=== PATIENT | female | born 1960 | race Caucasian/White ===

== ENCOUNTER 2020-11-10 15:49 | Outpatient (REF) | payer MEDICAID, SELFPAY ==
--- NOTE | ~2020-11-10 | MM_ITS ---
EXAMINATION: MM SCREENING DIGITAL BREAST TOMOSYNTHESIS, BILATERAL CLINICAL INFORMATION: Screening. Asymptomatic. The lifetime risk of breast cancer based on the Tyrer-Cuzick Model is 3.5%. COMPARISON: Mammography: November 05, 2019 and studies dating back to March 11, 2013 TECHNIQUE: Digital breast tomosynthesis is performed in both the craniocaudal and mediolateral oblique views along with computer-aided detection (CAD). Synthesized 2D images are generated from the tomosynthesis. FINDINGS: The breasts are heterogeneously dense, which may obscure small masses (ACR BI-RADS breast composition Category c). There are no significant masses, abnormal calcifications, or other abnormalities. MM/MM tomosynthesis screening BI IMPRESSION: There are no significant changes from prior study. ASSESSMENT: BI-RADS 1: Negative RECOMMENDATION: Routine annual mammography screening. This patient's information was entered into a reminder system with a target due date for their next mammogram.
== END 2020-11-10 15:50 | disposition home or self-care (01) ==
LOC: HO.MAMMO 15:49
PROVIDERS: PCP Internal Medicine; Visit Provider Internal Medicine
DX: Z12.31 Encounter for screening mammogram for malignant neoplasm of breast (principal)
CPT/HCPCS: 77063; 77067

== ENCOUNTER 2021-01-18 16:00 | Outpatient (REF) | payer MEDICAID, SELFPAY ==
--- NOTE | ~2021-01-18 | XR_ITS ---
EXAMINATION: XR KNEE, LEFT CLINICAL INFORMATION: Left knee pain. COMPARISON: 05/22/2018 TECHNIQUE: 3 views of the left knee. FINDINGS: There is osteopenia visualized bones. Patient status post left total knee arthroplasty. No significant change in appearance is identified when compared to study of 05/22/2018. No acute fractures identified. Small knee effusion appreciated. No dislocation. No evidence of hardware loosening. XR/XR knee LT 3V IMPRESSION: Stable appearance of left knee status post left knee total arthroplasty. Small left knee effusion. Osteopenia.
== END 2021-01-18 16:01 | disposition home or self-care (01) ==
LOC: HO.XRAY 16:00
PROVIDERS: Visit Provider Student in an Organized Health Care Education/Training Program
DX: M25.562 Pain in left knee (principal); L94.0 Localized scleroderma [morphea]
CPT/HCPCS: 73562; 99212

== ENCOUNTER 2021-09-21 12:53 | Emergency (ER) | payer MEDICAID, SELFPAY ==
--- NOTE | ~2021-09-21 | CT_ITS ---
EXAMINATION: CT ABDOMEN AND PELVIS WITHOUT CONTRAST CLINICAL INFORMATION: Left abdominal pain COMPARISON: None TECHNIQUE: Multidetector volumetric imaging was performed from the superior aspect of the liver through the pubic symphysis. Sagittal and coronal reformatted images were obtained on the technologist's workstation. This CT examination was performed using dose optimization techniques as appropriate, variously including the following: *Automated exposure control *Adjustment of mA and/or kV according to patient size (this includes techniques or standardized protocols for targeted exams where dose is matched to indication/reason for exam; i.e. extremities or head) *Use of iterative reconstruction technique DLP: 516 mGy-cm FINDINGS: LUNG BASES: The visualized lung bases are unremarkable. LIVER, GALLBLADDER, AND BILIARY TREE: The liver is normal in size, shape, and attenuation. There is an 8 mm cyst within lateral segment. No suspicious hepatic lesion or biliary ductal dilatation is present. Gallbladder unremarkable. PANCREAS: Unremarkable. SPLEEN: Unremarkable. ADRENAL GLANDS: Unremarkable. KIDNEYS AND URETERS: The kidneys are normal in size, shape, and attenuation. There is a 1.4 cm structure emanating from the lower pole of the right kidney, and a smaller exophytic structure emanating from the upper pole of the right kidney. Simple cyst emanates from the upper pole of left kidney. No hydronephrosis, hydroureter, or calculi seen. No perinephric stranding. BLADDER: Unremarkable. GASTROINTESTINAL TRACT: The small and large bowel are unremarkable. The appendix is unremarkable. ABDOMINAL WALL: No significant hernia is appreciated. LYMPH NODES: Normal. VASCULAR: Unremarkable. PELVIC VISCERA: Hysterectomy and bilateral oophorectomy. OSSEOUS STRUCTURES: No acute or suspicious osseous abnormalities. CT/CT abdomen pelvis wo con IMPRESSION: * No potential etiology for the patient's symptomatology is identified. * Indeterminate 1.4 cm structure emanating from the lower pole right kidney, and smaller structure emanating from the upper pole right kidney. There is a simple cyst in the left kidney. Recommend nonemergent renal ultrasound for further evaluation.
[2021-09-21 13:09] VITALS: BP 162/89; PULSE 83; RESP 18; O2SAT 99; BMI 26.7
[2021-09-22 01:17] LABS: MANUAL DIFF FLAG NO
[2021-09-22 01:18] LABS: Basophils Percent Auto 0.5 % (0-2); Eosinophils Absolute Auto 0.4 X10*3/uL (0.0-0.4); Eosinophils Percent Auto 6.7 % (0-4); Hemoglobin 14.7 g/dl (12.0-16.0); Imm Gran Abs Auto 0.02 X10*3/uL (0.00-0.03); Imm Gran Pct Auto 0.3 % (0.0-0.4); Lymphocytes Absolute Auto 1.6 X10*3/uL (1.2-4.9); Lymphocytes Percent Auto 27.4 % (20-40); Mean Corpuscular Hemoglobin 29.8 pg (27.0-33.0); Mean Corpuscular Volume 93.1 fL (80.0-98.0); Mean Platelet Volume 10.3 fL (9.4-12.3); Monocytes Absolute Auto 0.5 X10*3/uL (0.1-1.2); Monocytes Percent Auto 8.1 % (2-11); Neutrophils Absolute Auto 3.4 x10*3/uL (2.0-8.3); Platelet Count 252 X10*3/uL (160-400); Red Blood Count 4.94 X10*6/uL (4.20-5.50); Red Cell Distribution Width 12.7 % (11.0-16.0); White Blood Count 5.9 X10*3/uL (4.8-10.8)
[2021-09-22 01:38] LABS: Alanine Aminotransferase 25 U/L (0-31); Albumin Level 4.8 g/dL (3.5-5.0); Alkaline Phosphatase 102 U/L (39-117); Anion Gap 12 (12-20); Aspartate Amino Transferase 20 U/L (5-31); Bilirubin Total 0.5 mg/dL (0.0-1.0); Blood Urea Nitrogen 13 mg/dL (9-16); Calcium 10.2 mg/dL (8.4-10.2); Carbon Dioxide 29 mmol/L (22-29); Chloride 106 mmol/L (96-108); Creatinine Clr Calc Pharmacy 81.5; Estimated Glomerular Filt Rate > 60; Glucose Random 127 mg/dL (60-115); Lipase 18 U/L (8-78); Potassium 4.1 mmol/L (3.3-5.1); Sodium 143 mmol/L (135-145); Total Protein 7.7 g/dL (6.5-8.0)
--- NOTE | 2021-09-22 06:00 | ED.ABDPAIN ---
HPI - Abdominal Pain General Chief Complaint: Abdominal Pain Stated Complaint: pain in L side hurts to breathe Time Seen by Provider: 09/22/21 02:46 Source: patient and maintenance of way clerk Mode of arrival: other (Cane) History of Present Illness HPI narrative: 60-year-old female presents with left upper quadrant/flank since mid May in denies any traumatic event at that time. This has not been associated with any fever, chills, cough, weight loss in patient has discussed with her primary care physician in reports her last mammogram was October of 2020. Related Data Home Medications Medication Instructions Recorded Confirmed amlodipine 5 mg tablet 5 mg PO DAILY 01/18/21 aspirin 81 mg tablet,delayed 81 mg PO DAILY 01/18/21 release enalapril maleate 20 mg tablet 20 mg PO DAILY 01/18/21 simvastatin 20 mg tablet 20 mg PO DAILY 01/18/21 venlafaxine 150 mg 150 mg PO DAILY 01/18/21 capsule,extended release 24 hr Allergies Allergy/AdvReac Type Severity Reaction Status Date / Time hydroxychloroquine Allergy Unknown AFFECTED Verified 01/18/21 16:07 [From PLAQUENIL] VISION Review of Systems Review of Systems Pertinent positives and negatives as stated in HPI 10 point review of systems is otherwise Physical Exam Vital Signs: Vital Signs: Last Vital Signs Pulse 83 09/21/21 13:09 Resp 18 09/21/21 13:09 BP 162/89 H 09/21/21 13:09 Pulse Ox 99 09/21/21 13:09 BMI result Body Mass Index 26.7 VITAL SIGNS: Reviewed. GENERAL: Well developed, well nourished, in no acute distress. HEAD: Normocephalic/atraumatic EYES: PERRLA, EOMI OROPHARYNX: no oral lesions noted, posterior pharynx clear LUNGS: Normal breath sounds. No adventitious sounds or accessory muscle use. SpO2<99>, no chest wall tenderness/crepitus/deformity noted CARDIOVASCULAR: Regular rate and rhythm without noted murmurs, no JVD or lower extremity edema. ABDOMEN: Soft, non-tender, non-distended with bowel sounds. NEUROLOGIC: Alert and oriented x 4. Course Course Course Narrative: 60-year-old female with history and clinical presentation suggestive of musculoskeletal pain and less likely thought to be pneumonia, bony fracture or intra-abdominal pathology. On review of all investigations there are no acute findings and this was communicated with patient via registered mail clerk. Patient does have good follow-up and will be obtaining an outpatient chest x-ray. MDM - Abdominal Pain Lab Data Result diagrams: 09/22/21 00:42 09/22/21 00:42 Labs: Lab Results 09/22/21 09/22/21 Range/Units 00:42 00:42 WBC 5.9 (4.8-10.8) X10*3/uL RBC 4.94 (4.20-5.50) X10*6/uL Hgb 14.7 (12.0-16.0) g/dl Hct 46.0 (37.0-47.0) % MCV 93.1 (80.0-98.0) fL MCH 29.8 (27.0-33.0) pg MCHC 32.0 (31.0-35.0) g/dl RDW 12.7 (11.0-16.0) % Plt Count 252 (160-400) X10*3/uL MPV 10.3 (9.4-12.3) fL Immature Gran % (Auto) 0.3 (0.0-0.4) % Neut % (Auto) 57.0 (45-73) % Lymph % (Auto) 27.4 (20-40) % [place] % (Auto) 8.1 (2-11) % Eos % (Auto) 6.7 H (0-4) % Baso % (Auto) 0.5 (0-2) % Lymph # (Auto) 1.6 (1.2-4.9) X10*3/uL [place] # (Auto) 0.5 (0.1-1.2) X10*3/uL Eos # (Auto) 0.4 (0.0-0.4) X10*3/uL Baso # (Auto) 0.0 (0.0-0.2) X10*3/uL Abs Immat Gran (auto) 0.02 (0.00-0.03) X10*3/uL Absolute Neuts (auto) 3.4 (2.0-8.3) x10*3/uL Absolute Nucleated RBC 0.000 (0.0-0.012) X10*3/uL Nucleated RBC % (auto) 0.0 (0.0-0.2) /100WBC Sodium 143 (135-145) mmol/L Potassium 4.1 (3.3-5.1) mmol/L Chloride 106 (96-108) mmol/L Carbon Dioxide 29 (22-29) mmol/L Anion Gap 12 (12-20) BUN 13 (9-16) mg/dL Creatinine 0.69 (0.5-1.4) mg/dL Estim Creat Clear Calc 81.5 Estimated GFR > 60 Random Glucose 127 H (60-115) mg/dL Calcium 10.2 (8.4-10.2) mg/dL Total Bilirubin 0.5 (0.0-1.0) mg/dL AST 20 (5-31) U/L ALT 25 (0-31) U/L Alkaline Phosphatase 102 (39-117) U/L Total Protein 7.7 (6.5-8.0) g/dL Albumin 4.8 (3.5-5.0) g/dL Lipase 18 (8-78) U/L Discharge Plan Discharge Clinical Impression: Musculoskeletal pain, Chest wall pain Patient Disposition: Home, Self-Care Instructions: Musculoskeletal Pain (ED), Chest Wall Pain (ED) Additional Instructions: 1. Recomiende el uso de Tylenol / ibuprofeno de venta miriam seg?n sea necesario para controlar el dolor. 2. Se recomienda el uso de parches de lidoca?na, estos est?n disponibles sin receta y deben aplicarse en el ?kamla de m?xima sensibilidad min se indica en el empaque exterior. 3. Samantha un seguimiento con smith proveedor de atenci?n primaria para patti reevaluaci?n, espec?ficamente para completar la radiograf?a de t?rax. Hubo hallazgos en smith tomograf?a computarizada con recomendaciones no emergentes para un seguimiento adicional con patti ecograf?a: * No se indica ninguna etiolog?a potencial de la sintomatolog?a del paciente. identificado. * Estructura indeterminada de 1,4 cm que emana del polo inferior derecho ri??n y estructura m?s vijaya?a que emana del polo superior derecho ri??n. Hay un quiste simple en el ri??n aidan. Recomendar ecograf?a renal que no es de emergencia para patti evaluaci?n adicional. Prescriptions: No Action enalapril maleate 20 mg tablet 20 mg PO DAILY RF: 0 amlodipine 5 mg tablet 5 mg PO DAILY RF: 0 simvastatin 20 mg tablet 20 mg PO DAILY RF: 0 aspirin 81 mg tablet,delayed release (DR/EC) 81 mg PO DAILY RF: 0 venlafaxine 150 mg capsule,extended release 24hr 150 mg PO DAILY RF: 0 Referrals: [facility] [Primary Care Provider] - 2 days Print Language: Serbian [facility], [facility] Past Medical History Source: nursing notes reviewed Medical History Depression GERD (gastroesophageal reflux disease) HTN (hypertension) Hyperlipidemia [place] Social History Social History Household Members: None Housing: Apartment Alcohol intake: current Advance Directives: No Advance Directives Information Provided: Yes
== END 2021-09-22 06:15 | disposition home or self-care (01) ==
PROVIDERS: Emergency Provider Student in an Organized Health Care Education/Training Program
DX: R07.89 Other chest pain (principal); M79.18 Myalgia, other site; R10.12 Left upper quadrant pain; I10 Essential (primary) hypertension; E78.5 Hyperlipidemia, unspecified
CPT/HCPCS: 36415; 74176; 80053; 83690; 85025; 99282; 99284

== ENCOUNTER 2021-10-06 11:24 | Outpatient (REF) | payer MEDICAID, SELFPAY ==
[2021-10-06 11:47] LABS: Binax Internal Control QC Valid; Binax Now Covid-19 Ag Negative (Negative)
== END 2021-10-06 11:25 | disposition home or self-care (01) ==
LOC: HO.LAB 11:24
PROVIDERS: PCP General Practice; Visit Provider Internal Medicine
DX: Z20.822 Contact with and (suspected) exposure to COVID-19 (principal)
CPT/HCPCS: C9803

== ENCOUNTER 2022-01-25 10:52 | Outpatient (REF) | payer MEDICAID, SELFPAY ==
--- NOTE | ~2022-01-25 | MM_ITS ---
EXAMINATION: MM SCREENING DIGITAL BREAST TOMOSYNTHESIS, BILATERAL CLINICAL INFORMATION: Screening. Asymptomatic. The lifetime risk of breast cancer based on the Tyrer-Cuzick Model is 3.2%. COMPARISON: Mammography: November 10, 2020 and studies dating back to November 16, 2013 TECHNIQUE: Digital breast tomosynthesis is performed in both the craniocaudal and mediolateral oblique views along with computer-aided detection (CAD). Synthesized 2D images are generated from the tomosynthesis. FINDINGS: The breasts are heterogeneously dense, which may obscure small masses (ACR BI-RADS breast composition Category c). There are no significant masses, abnormal calcifications, or other abnormalities. MM/MM tomosynthesis screening BI IMPRESSION: There are no significant changes from prior study. ASSESSMENT: BI-RADS 1: Negative RECOMMENDATION: Routine annual mammography screening. This patient's information was entered into a reminder system with a target due date for their next mammogram.
== END 2022-01-25 10:53 | disposition home or self-care (01) ==
LOC: HO.MAMMO 10:52
PROVIDERS: PCP General Practice; Visit Provider General Practice
DX: Z12.31 Encounter for screening mammogram for malignant neoplasm of breast (principal)
CPT/HCPCS: 77063; 77067

== ENCOUNTER 2022-08-14 12:27 | Outpatient (REF) | payer MEDICAID, SELFPAY ==
--- NOTE | ~2022-08-14 | XR_ITS ---
EXAMINATION: XR KNEE, LEFT CLINICAL INFORMATION: Left knee pain. COMPARISON: Left knee radiographs dated 01/18/2021. TECHNIQUE: Three views of the left knee. FINDINGS: The patient is status post left knee arthroplasty showing good anatomic alignment and no evidence for hardware malfunction. Moderate-sized osseous protuberance off of the lateral margin of the talus again seen without significant change. Associated remodeling with the lateral condylar prosthesis is noted. No acute fracture or dislocation. There is no joint effusion. The soft tissues are unremarkable. XR/XR knee LT 3V IMPRESSION: No acute hardware or osseous abnormality. No significant change.
--- NOTE | ~2022-08-14 | XR_ITS ---
EXAMINATION: XR HIP, RIGHT CLINICAL INFORMATION: Right hip pain. COMPARISON: None TECHNIQUE: Two views of the right hip. FINDINGS: Bones and soft tissues are normal. No fracture. Alignment is anatomic. Hip joint space is maintained. XR/XR hip RT min 2V IMPRESSION: Unremarkable right hip.
--- NOTE | ~2022-08-14 | XR_ITS ---
EXAMINATION: XR HIP, LEFT CLINICAL INFORMATION: Hip pain. COMPARISON: None TECHNIQUE: Two views of the left hip. FINDINGS: Bones and soft tissues are normal. No fracture. Alignment is anatomic. Hip joint space is maintained. XR/XR hip LT min 2V IMPRESSION: Unremarkable left hip.
[2022-08-14 12:36] LABS: MANUAL DIFF FLAG NO
[2022-08-14 13:06] LABS: Basophils Percent Auto 0.6 % (0-2); Eosinophils Absolute Auto 0.2 X10*3/uL (0.0-0.4); Eosinophils Percent Auto 2.9 % (0-4); Hemoglobin 14.7 g/dl (12.0-16.0); Imm Gran Abs Auto 0.02 X10*3/uL (0.00-0.03); Imm Gran Pct Auto 0.3 % (0.0-0.4); Lymphocytes Absolute Auto 1.6 X10*3/uL (1.2-4.9); Lymphocytes Percent Auto 23.8 % (20-40); Mean Corpuscular HGB Conc 32.7 g/dl (31.0-35.0); Mean Corpuscular Hemoglobin 28.8 pg (27.0-33.0); Mean Corpuscular Volume 88.1 fL (80.0-98.0); Mean Platelet Volume 10.5 fL (9.4-12.3); Monocytes Absolute Auto 0.4 X10*3/uL (0.1-1.2); Monocytes Percent Auto 6.3 % (2-11); Neutrophils Absolute Auto 4.5 x10*3/uL (2.0-8.3); Neutrophils Percent Auto 66.1 % (45-73); Platelet Count 306 X10*3/uL (160-400); Red Blood Count 5.11 X10*6/uL (4.20-5.50); Red Cell Distribution Width 12.8 % (11.0-16.0); White Blood Count 6.9 X10*3/uL (4.8-10.8)
[2022-08-14 13:33] LABS: Alanine Aminotransferase 22 U/L (0-31); Blood Urea Nitrogen 14 mg/dL (9-16); C Reactive Protein 0.88 mg/dL (< or = 0.50); Estimated Glomerular Filt Rate > 60
[2022-08-14 13:42] LABS: Erythrocyte Sedimentation Rate 12 MM/HR (0-20)
[2022-08-14 14:04] LABS: Aspartate Amino Transferase 16 U/L (5-31)
== END 2022-08-14 12:28 | disposition home or self-care (01) ==
LOC: HO.XRAY 12:27
PROVIDERS: PCP General Practice; Visit Provider Nurse Practitioner Family
DX: M25.551 Pain in right hip (principal); M25.552 Pain in left hip; M25.562 Pain in left knee; M25.50 Pain in unspecified joint; L94.0 Localized scleroderma [morphea]; Z79.899 Other long term (current) drug therapy; Z96.652 Presence of left artificial knee joint
CPT/HCPCS: 36415; 73502; 73562; 82565; 84450; 84460; 84520; 85025; 85652; 86140; 99212

== ENCOUNTER 2022-08-23 08:59 | Outpatient (REF) | payer MEDICAID, SELFPAY | END 2022-08-23 09:00 | disposition home or self-care (01) | LOC: HO.HOSX 08:59 | PROVIDERS: Visit Provider Orthopaedic Surgery | DX: Z13.89 Encounter for screening for other disorder (principal) ==

== ENCOUNTER 2022-08-29 12:28 | Outpatient (REF) | payer MEDICAID, SELFPAY ==
--- NOTE | ~2022-08-29 | XR_ITS ---
EXAMINATION: AP STANDING VIEWS OF BOTH KNEES WELL LATERAL AND SUNRISE VIEWS OF THE LEFT KNEE CLINICAL INFORMATION: Pain. COMPARISON: 01/18/2021 and 05/22/2018. TECHNIQUE: AP standing view of both knees and lateral and sunrise views of the left knee. FINDINGS: AP standing views of the knees demonstrate moderate narrowing of the medial joint space compartment of the right knee. Patient is status post left total knee arthroplasty without evidence of hardware failure and similar in appearance to previous studies. There does appear to be some valgus angulation on this single image and it is difficult to tell whether this may be positional in nature. No significant knee effusion is appreciated. There is prominent spurring about the patella superiorly, inferiorly, and laterally. XR/XR knee standing BI IMPRESSION: Right knee medial joint space compartment narrowing. Status post left total knee arthroplasty without change in appearance of the prosthetic components. Degenerative change as described.
--- NOTE | ~2022-08-29 | XR_ITS ---
EXAMINATION: AP STANDING VIEWS OF BOTH KNEES WELL LATERAL AND SUNRISE VIEWS OF THE LEFT KNEE CLINICAL INFORMATION: Pain. COMPARISON: 01/18/2021 and 05/22/2018. TECHNIQUE: AP standing view of both knees and lateral and sunrise views of the left knee. FINDINGS: AP standing views of the knees demonstrate moderate narrowing of the medial joint space compartment of the right knee. Patient is status post left total knee arthroplasty without evidence of hardware failure and similar in appearance to previous studies. There does appear to be some valgus angulation on this single image and it is difficult to tell whether this may be positional in nature. No significant knee effusion is appreciated. There is prominent spurring about the patella superiorly, inferiorly, and laterally. XR/XR knee LT 2V IMPRESSION: Right knee medial joint space compartment narrowing. Status post left total knee arthroplasty without change in appearance of the prosthetic components. Degenerative change as described.
== END 2022-08-29 12:29 | disposition home or self-care (01) ==
LOC: HO.HOSX 12:28
PROVIDERS: Visit Provider Orthopaedic Surgery
DX: M25.562 Pain in left knee (principal)
CPT/HCPCS: 73560; 73565; 99202

== ENCOUNTER → 2022-08-30 10:17 | Outpatient (BNVA) | payer MEDICAID, SELFPAY | PROVIDERS: PCP General Practice; Visit Provider Orthopaedic Surgery | DX: M25.562 Pain in left knee (principal); M25.662 Stiffness of left knee, not elsewhere classified; Z96.652 Presence of left artificial knee joint | CPT/HCPCS: 99202 ==

== ENCOUNTER 2023-03-08 11:04 | Outpatient (REF) | payer MEDICAID, SELFPAY ==
--- NOTE | ~2023-03-08 | MM_ITS ---
EXAMINATION: MM SCREENING DIGITAL BREAST TOMOSYNTHESIS, BILATERAL CLINICAL INFORMATION: Screening. Asymptomatic. The lifetime risk of breast cancer based on the Tyrer-Cuzick Model is 3%. COMPARISON: Multiple prior mammography exams dating back to 07/25/2016. TECHNIQUE: Digital breast tomosynthesis is performed in both the craniocaudal and mediolateral oblique views along with computer-aided detection (CAD). Synthesized 2D images are generated from the tomosynthesis. FINDINGS: The breasts are heterogeneously dense, which may obscure small masses (ACR BI-RADS breast composition Category c). There are no significant masses, abnormal calcifications, or other abnormalities. Parenchymal pattern is similar to prior studies and there is no developing density or interval architectural abnormality. There is a biopsy clip marker again noted posterior 3:00 right breast. Mild bilateral nipple retraction is chronic finding. No skin thickening. The axilla are unremarkable. No significant changes. MM/MM tomosynthesis screening BI IMPRESSION: No mammographic evidence of malignancy. ASSESSMENT: BI-RADS 2: Benign RECOMMENDATION: Routine annual mammography screening. This patient's information was entered into a reminder system with a target due date for their next mammogram.
== END 2023-03-08 11:05 | disposition home or self-care (01) ==
LOC: HO.MAMMO 11:04
PROVIDERS: PCP General Practice; Visit Provider General Practice
DX: Z12.31 Encounter for screening mammogram for malignant neoplasm of breast (principal)
CPT/HCPCS: 77063; 77067

== ENCOUNTER 2023-06-13 14:00 | Outpatient (RCR) | payer MEDICAID, SELFPAY ==
[2023-06-11 10:04] VITALS: BP 161/76; PULSE 76
== END 2023-07-17 09:18 | disposition home or self-care (01) ==
LOC: HO.PT 14:00
PROVIDERS: PCP General Practice; Visit Provider General Practice
DX: R42 Dizziness and giddiness (principal)
CPT/HCPCS: 95992; 97162

== ENCOUNTER 2023-09-30 13:16 | Outpatient (AMB) | payer MEDICAID, SELFPAY ==
--- NOTE | 2023-09-30 13:21 | A.OFFVIS_ITS ---
Intake Vital Signs 09/30/23 13:22 Height 5 ft 3 in Weight 160 lb 14.999 oz BMI 28.5 BP 110/70 Blood Pressure Location Lt brachial Position Sitting Pulse 69 Intake Visit Reasons: NPV/Palpitations/HHC/S. [place] Intake Note: NPV? Plapitations/HHC/ pt its still feeling the palpitations, sometime having some tightness of the chest that will have her some shortness of breath. Aircraft Detail Draftsperson Required: Yes Aircraft Detail Draftsperson Name: [id number] Accompanied by: Daughter Allergies hydroxychloroquine [From PLAQUENIL] Allergy (Unknown, Verified 08/30/22 10:30) AFFECTED VISION Medication List - Last Reconciled 09/30/23 by Jose Aguilar MD acetaminophen 500 - 1,000 mg PO Q6H PRN amlodipine 5 mg PO DAILY aspirin 81 mg PO DAILY calcium carbonate-vitamin D3 600 mg-10 mcg (400 unit) 1 tab PO BID enalapril maleate 20 mg PO DAILY naproxen 500 mg PO BID oxybutynin chloride ER 10 mg PO QAM simvastatin 20 mg PO DAILY venlafaxine ER 150 mg PO DAILY HPI HPI Comments History of Present Illness Details 62-year-old female who is referred to us for palpitations and chest discomfort. She has been experiencing chest pain for few months. She describes a pressure-like feeling over her chest along with shortness of breath. These episodes are somewhat random and can happen at rest and with activity too. She also gets palpitations mostly at nighttime and these are quite frequent and happen almost every night. She is a nonsmoker. She has background of hyperlipidemia. ON LICENSE OF [facility] Medical History (Updated 09/30/23 @ 13:55 by Jose Aguilar MD) Depression Hyperlipidemia HTN (hypertension) GERD (gastroesophageal reflux disease) [place] Surgical History History of partial hysterectomy Hx of section History of knee replacement procedure of left knee (~1997) Family History Mother Hypertension Father No problems noted. Social History Household Members: None Housing: Apartment Alcohol intake: current Alcohol intake frequency: holidays/special occasions only Patient Tobacco Use Status: Never used Tobacco Review of Systems Const Reports chills, Reports fatigue, Reports fever(s), Reports frequent falls, Reports weakness, Reports weight gain and Reports weight loss ENT Reports dizziness Card Reports chest pain, Reports leg edema, Reports lightheadedness, Reports palpitations, Reports dyspnea, Reports dyspnea on exertion and Reports orthopnea Resp Reports cough, Reports dyspnea and Reports dyspnea on exertion GI Reports bloating and Reports change in bowel habits Musc Reports muscle weakness, Reports numbness and Reports tingling Neuro Reports dizziness, Reports frequent falls, Reports numbness, Reports tingling and Reports weakness Endo Reports fatigue and Reports palpitations Physical Exam Vital Signs: Last Vital Signs Pulse 69 09/30/23 13:22 BP 110/70 09/30/23 13:22 BMI result Body Mass Index 28.5 GENERAL APPEARANCE: in no acute distress, pleasant. NECK: no carotid bruit, no jugular venous distention. SKIN: no suspicious lesions, warm and dry. HEART: no murmurs, regular rate and rhythm. LUNGS: clear to auscultation bilaterally. ABDOMEN: soft, nontender. EXTREMITIES: no edema. PERIPHERAL PULSES: equal. NEUROLOGIC: No gross deficits, AAO X 3 Office Procedures EKG Details: Sinus rhythm 69 beats per minute, normal ECG, QTC 456 milliseconds. [id number], Complete Assessment & Plan Assessment & Plan (1) Chest pain: Code(s): R07.9 - Chest pain, unspecified (2) Palpitations: Code(s): R00.2 - Palpitations Plan Pleasant 62 year female here for chest pain and palpitations. She has been experiencing chest tightness and shortness of breath. We will arrange a Lexiscan for her. Due to previous knee surgeries she walks with the cane and is unable to exercise on a treadmill. She has palpitations every night, we will arrange a 7 day Holter monitor. Thank you for allowing me to participate in the care of your patient. Please feel free to contact me if you have any questions. Orders: Orders CA lexiscan stress w papa Today R07.9 - Chest pain, unspecified ECG 7 day holter monitor Today R00.2 - Palpitations Coding Level of Care Code New Pt Level 4 (06695) Diagnoses Chest pain R07.9 Palpitations R00.2 CPT Codes EKG - CPT: 30029-[id number], Complete ([id number])
[2023-09-30 13:22] VITALS: BP 110/70; PULSE 69; BMI 28.5
== END 2023-09-30 13:59 | disposition home or self-care (01) ==
PROVIDERS: PCP General Practice; Referring Provider General Practice; Visit Provider Internal Medicine Cardiovascular Disease
DX: R07.9 Chest pain, unspecified (principal); R00.2 Palpitations
CPT/HCPCS: 93010; 99204

== ENCOUNTER → 2023-09-30 13:16 | Outpatient (BNVA) | payer MEDICAID, SELFPAY | PROVIDERS: PCP General Practice; Visit Provider Internal Medicine Cardiovascular Disease | DX: R07.9 Chest pain, unspecified (principal); R00.2 Palpitations | CPT/HCPCS: 93005; 99202 ==

== ENCOUNTER → 2023-11-11 09:01 | Outpatient (REF) | payer MEDICAID, SELFPAY ==
--- NOTE | ~2023-11-11 | NM_ITS ---
Myocardial perfusion study Indication: Chest pain Technique: The patient was brought in for a Lexiscan perfusion study on 11/11/2023. Patient performed low-level exercise and was injected 0.4 mg of Lexiscan intravenously. Within a minute of injection, 25 mCi of sestamibi was given intravenously. Images were obtained using the SPECT gamma camera interlaced with the gating device. Images were obtained in supine position. Resting perfusion study was performed on 11/12/2023. Patient was administered 25 mCi of sestamibi intravenously at rest. Images were then obtained in supine position. Images obtained with and without CT attenuation. Total DLP 88 mGy-cm Images were processed with the software and compared side to side in short axis, horizontal long axis and vertical long axis views. Findings: Perfusion study is suboptimal due to intense subdiaphragmatic uptake in the liver interfering with inferior wall uptake as well as intense para-cardiac uptake in the gastric area of possibly hiatal hernia interfering with lateral wall uptake. The stress perfusion study showed non attenuated images show mildly reduced uptake in the distal anterior wall. The inferolateral and basal inferior wall are difficult to assess. Attenuation corrected images show diffusely reduced uptake in the entire myocardium with severely reduced uptake in the apex.. The gated study shows normal LV systolic function with calculated LVEF of 55%. LV cavity is mildly dilated size. The gated study shows normal systolic wall thickening and contraction of segments. Resting study shows non attenuated as well as show improved uptake in the apical wall of the LV myocardium. Attenuation corrected images show improved uptake in all segments of LV myocardium.. Gating at rest reveals normal systolic wall motion with ejection fraction at 57%. The findings are consistent with equivocal for reversibility apical wall non attenuated images show . However there is diffusely improved uptake in the entire myocardium on attenuated corrected images. This study is poor diagnostic quality and therefore cannot entirely rule out myocardial ischemia and the study.. NM/NM papa perf SPECT rest & str Impression: 1. Myocardial perfusion imaging study nondiagnostic due to extracardiac uptake interfering with myocardial uptake. 2. Gated LVEF is 55% 3. Transient ischemic dilatation not present EKG is nondiagnostic for ischemia. There is alternative imaging for coronary artery disease evaluation
--- NOTE | 2023-11-11 09:04 | HM_ITS ---
Conclusion: 1. Patient was monitored for total period of 1 day and 23 hours 2. Baseline was normal sinus with average heart of 76 beats per minute next 3. No significant arrhythmias or pauses noted 4. Patient marked the counter 2 times without associated symptoms correlating with sinus rhythm MTDD
--- NOTE | 2023-11-11 09:04 | CA_ITS ---
Acquisition Time: 2023-11-11 09:31:51 Total Exercise Time: 00:02:00 Test Indications: CP, PALPITATIONS Medications: SEE H Protocol: LEXISCAN Max HR: 127 BPM 79% of Pred: 159 BPM Max BP: 128/080 mmHG Max Work Load: 1.0 METS Pharmacological stress test with Lexiscan injection while sitting and kicking her legs, with 6/7 chest tightness, without arrhythmias, with normotensive repsonse to injection, with nondiagnoisitic EKGs. Aminophylline 75mg IVP given to reverse Lexiscan. Chest tightness resolved in recovery. Nuclear images pending. Test reviewed with Dr. Zhou. Referred By: Jose Aguilar Overread By: Dawna Whitley
== END ==
LOC: HO.CARD 09:01
PROVIDERS: PCP General Practice; Visit Provider Internal Medicine Cardiovascular Disease
DX: R07.9 Chest pain, unspecified (principal); R00.2 Palpitations
CPT/HCPCS: 78452; 93017; 93225; A9500; J0280; J2785

== ENCOUNTER → 2023-11-11 09:04 | Outpatient (BNV) | payer MEDICAID, SELFPAY | PROVIDERS: PCP General Practice; Visit Provider Nurse Practitioner | DX: R00.2 Palpitations (principal) | CPT/HCPCS: 78452; 93016; 93018; 93227 ==

== ENCOUNTER 2024-01-13 10:48 | Outpatient (AMB) | payer MEDICAID, SELFPAY ==
[2024-01-13 10:55] VITALS: BP 120/62; PULSE 78; BMI 28.0
--- NOTE | 2024-01-13 10:55 | A.OFFVIS_ITS ---
Vital Signs 01/13/24 10:55 Height 5 ft 3 in Weight 158 lb 4.67 oz BMI 28.0 BP 120/62 Blood Pressure Location Lt brachial Position Sitting Pulse 78 Pulse Source Pulse Oximeter Intake Visit Reasons: 3 mth f/up s/p mibi/ holter Pawn Broker Required: Yes Pawn Broker Name: [id number] Accompanied by: Self / Same As Patient Allergies hydroxychloroquine [From [facility]QUENIL] Allergy (Unknown, Verified 08/30/22 10:30) AFFECTED VISION Medication List - Last Reconciled 01/13/24 by Jose Aguilar MD acetaminophen 500 - 1,000 mg PO Q6H PRN amlodipine 5 mg PO DAILY aspirin 81 mg PO DAILY calcium carbonate-vitamin D3 600 mg-10 mcg (400 unit) 1 tab PO BID enalapril maleate 20 mg PO DAILY oxybutynin chloride ER 10 mg PO QAM simvastatin 20 mg PO DAILY venlafaxine ER 150 mg PO DAILY HPI Comments Details: 63-year-old female who is referred to us for palpitations and chest discomfort. She has been experiencing chest pain for few months. She describes a pressure- like feeling over her chest along with shortness of breath. These episodes are somewhat random and can happen at rest and with activity too. She also gets palpitations mostly at nighttime and these are quite frequent and happen almost every night. She is a nonsmoker. She has background of hyperlipidemia. 01/13/24: She returns for follow-up. She was referred for Holter monitor which she did 5 day Holter monitor which did not show any arrhythmia. On 2 occasions she had palpitations and was in sinus rhythm. She also had a Lexiscan but unfortunately there was extra cardiac uptake and the study was not interpretable. She has been referred for coronary CTA which she is due to get on February 04. She continues to get some palpitations off and on. She has occasional epigastric and chest discomfort. She continues to walk with a cane since knee surgery. [facility] Medical History (Updated 09/30/23 @ 13:55 by Jose Aguilar MD) Depression Hyperlipidemia HTN (hypertension) GERD (gastroesophageal reflux disease) [place] Surgical History History of partial hysterectomy Hx of section History of knee replacement procedure of left knee (~1997) Family History Mother Hypertension Father No problems noted. Social History Household Members: None Housing: Apartment Alcohol intake: current Alcohol intake frequency: holidays/special occasions only Patient Tobacco Use Status: Never used Tobacco Review of Systems Const Denies chills, Denies fatigue, Denies fever(s), Denies frequent falls, Denies weakness, Denies weight gain and Denies weight loss ENT Denies dizziness Card Denies chest pain, Denies leg edema, Denies lightheadedness, Denies palpitations, Denies dyspnea and Denies dyspnea on exertion Resp Denies cough, Denies dyspnea and Denies dyspnea on exertion GI Denies hematochezia Musc Denies abnormal gait, Denies muscle weakness, Denies numbness, Denies radiating pain into limb and Denies tingling Neuro Denies abnormal gait, Denies dizziness, Denies frequent falls, Denies numbness, Denies tingling and Denies weakness Endo Denies fatigue and Denies palpitations Physical Exam Vital Signs: Last Vital Signs Pulse 78 01/13/24 10:55 BP 120/62 01/13/24 10:55 BMI result Body Mass Index 28.0 GENERAL APPEARANCE: in no acute distress, pleasant. NECK: no carotid bruit, no jugular venous distention. SKIN: no suspicious lesions, warm and dry. HEART: no murmurs, regular rate and rhythm. LUNGS: clear to auscultation bilaterally. ABDOMEN: soft, nontender. EXTREMITIES: no edema. PERIPHERAL PULSES: equal. NEUROLOGIC: No gross deficits, AAO X 3 Assessment & Plan Assessment & Plan (1) Palpitations: Code(s): R00.2 - Palpitations Category: Medical (2) Chest pain: Code(s): R07.9 - Chest pain, unspecified Category: Medical Plan Pleasant 63 year female who is here for follow-up. She was seen for chest discomfort and palpitations in the past. She had Holter monitor performed which showed no arrhythmia. On 2 occasions she was in sinus rhythm and was complaining of palpitations. She said she was under stress living in an apartment building and has changed her apartment and is feeling somewhat better. No obvious arrhythmia was noted on the Holter and she has been reassured for now. She had Lexiscan performed but unfortunately there was technical issues with the study and it was uninterpretable. She is due to get a coronary CTA on 02/05/2024. Blood pressure is well controlled. She is saying at home she has readings as high as 160/90. We are going to arrange blood pressure check in the office with nurse and she is going to bring her blood pressure machine from home to so we can compare the readings. Thank you for allowing me to participate in the care of your patient. Please feel free to contact me if you have any questions. Coding Level of Care Code Est Pt Level 4 (72636) Diagnoses Palpitations R00.2 Chest pain R07.9
== END 2024-01-13 11:30 | disposition home or self-care (01) ==
PROVIDERS: PCP General Practice; Referring Provider General Practice; Visit Provider Internal Medicine Cardiovascular Disease
DX: R00.2 Palpitations (principal); R07.9 Chest pain, unspecified
CPT/HCPCS: 99214

== ENCOUNTER → 2024-01-13 10:48 | Outpatient (BNVA) | payer MEDICAID, SELFPAY | PROVIDERS: PCP General Practice; Visit Provider Internal Medicine Cardiovascular Disease | DX: R07.9 Chest pain, unspecified (principal); R06.02 Shortness of breath; R00.2 Palpitations | CPT/HCPCS: 99212 ==

== ENCOUNTER → 2024-01-20 10:31 | Outpatient (BNVA) | payer MEDICAID, SELFPAY | PROVIDERS: PCP General Practice; Visit Provider Internal Medicine Cardiovascular Disease ==

== ENCOUNTER 2024-03-11 10:06 | Outpatient (REF) | payer MEDICAID, SELFPAY ==
--- NOTE | ~2024-03-11 | MM_ITS ---
EXAMINATION: MM SCREENING DIGITAL BREAST TOMOSYNTHESIS, BILATERAL CLINICAL INFORMATION: Screening. Asymptomatic. COMPARISON: Mammography: This study is compared with prior exams dating back to 2020. TECHNIQUE: Digital breast tomosynthesis is performed in both the craniocaudal and mediolateral oblique views along with computer-aided detection (CAD). Synthesized 2D images are generated from the tomosynthesis. FINDINGS: There are scattered areas of fibroglandular density (ACR BI-RADS breast composition Category b). There are no significant masses, abnormal calcifications, or other abnormalities. There is a biopsy tissue marker in the right breast. MM/MM tomosynthesis screening BI IMPRESSION: No mammographic evidence of malignancy. ASSESSMENT: BI-RADS BI-RADS 2 - Benign Findings RECOMMENDATION: Routine annual mammography screening. 1 year F/U This examination should not preclude the clinical evaluation of a suspicious palpable abnormality. This patient's information was entered into a reminder system with a target due date for their next mammogram.
== END 2024-03-11 10:07 | disposition home or self-care (01) ==
LOC: HO.MAMMO 10:06
PROVIDERS: PCP General Practice; Visit Provider General Practice
DX: Z12.31 Encounter for screening mammogram for malignant neoplasm of breast (principal)
CPT/HCPCS: 77063; 77067

== ENCOUNTER → 2024-03-11 10:30 | Outpatient (BNV) | payer MEDICAID, SELFPAY | PROVIDERS: PCP General Practice; Visit Provider Radiology Diagnostic Radiology | DX: Z12.31 Encounter for screening mammogram for malignant neoplasm of breast (principal) | CPT/HCPCS: 77063; 77067 ==

== ENCOUNTER 2024-04-20 10:49 | Outpatient (AMB) | payer MEDICAID, SELFPAY ==
[2024-04-20 11:19] VITALS: BP 120/70; PULSE 80; BMI 28.3
--- NOTE | 2024-04-20 11:19 | A.OFFVIS_ITS ---
Vital Signs 04/20/24 11:19 Height 5 ft 3 in Weight 159 lb 9.835 oz BMI 28.3 BP 120/70 Blood Pressure Location Lt brachial Position Sitting Pulse 80 Pulse Source Pulse Oximeter Intake Visit Reasons: 3 mth f/up Intake Note: 3 mth f/up Dye Winch Operator Required: Yes Dye Winch Operator Name: chaparro/alvaro/equ[place] guine[place] Accompanied by: Family/Other Allergies hydroxychloroquine [From PLAQUENIL] Allergy (Unknown, Verified 08/30/22 10:30) AFFECTED VISION Medication List - Last Reconciled 04/20/24 by Jose Aguilar MD acetaminophen 500 - 1,000 mg PO Q6H PRN amlodipine 5 mg PO DAILY aspirin 81 mg PO DAILY calcium carbonate-vitamin D3 600 mg-10 mcg (400 unit) 1 tab PO BID enalapril maleate 20 mg PO DAILY oxybutynin chloride ER 10 mg PO QAM simvastatin 20 mg PO DAILY venlafaxine ER 150 mg PO DAILY HPI Comments Details: 63-year-old female who is referred to us for palpitations and chest discomfort. She has been experiencing chest pain for few months. She describes a pressure- like feeling over her chest along with shortness of breath. These episodes are somewhat random and can happen at rest and with activity too. She also gets palpitations mostly at nighttime and these are quite frequent and happen almost every night. She is a nonsmoker. She has background of hyperlipidemia. 01/13/24: She returns for follow-up. She was referred for Holter monitor which she did 5 day Holter monitor which did not show any arrhythmia. On 2 occasions she had palpitations and was in sinus rhythm. She also had a Lexiscan but unfortunately there was extra cardiac uptake and the study was not interpretable. She has been referred for coronary CTA which she is due to get on February 04. She continues to get some palpitations off and on. She has occasional epigastric and chest discomfort. She continues to walk with a cane since knee surgery. 04/20/2024: She returns for follow-up. She underwent coronary CTA in January 2024. This showed left dominant system with normal left main, minimal plaque in the LAD and no significant plaque in circumflex or RCA. Dilated main pulmonary artery was noted with concern for pulmonary arterial hypertension. Also liver lesion was noted which was felt to be a hemangioma and radiology recommended dedicated ultrasound which was requested. She is complaining of some chest discomfort and saying that this is worse when she is laying down. [facility] Medical History (Updated 04/20/24 @ 11:41 by Jose Aguilar MD) Depression Hyperlipidemia HTN (hypertension) GERD (gastroesophageal reflux disease) [place] Surgical History History of partial hysterectomy Hx of section History of knee replacement procedure of left knee (~1997) Family History Mother Hypertension Father No problems noted. Social History Household Members: None Housing: Apartment Alcohol intake: current Alcohol intake frequency: holidays/special occasions only Patient Tobacco Use Status: Never used Tobacco Review of Systems Const Denies chills, Denies fatigue, Denies fever(s), Denies frequent falls, Denies weakness, Denies weight gain and Denies weight loss ENT Denies dizziness Card Denies chest pain, Denies leg edema, Denies lightheadedness, Denies palpitations, Denies dyspnea and Denies dyspnea on exertion Resp Denies cough, Denies dyspnea and Denies dyspnea on exertion GI Denies hematochezia Musc Denies abnormal gait, Denies muscle weakness, Denies numbness, Denies radiating pain into limb and Denies tingling Neuro Denies abnormal gait, Denies dizziness, Denies frequent falls, Denies numbness, Denies tingling and Denies weakness Endo Denies fatigue and Denies palpitations Physical Exam Vital Signs: Last Vital Signs Pulse 80 04/20/24 11:19 BP 120/70 04/20/24 11:19 BMI result Body Mass Index 28.3 GENERAL APPEARANCE: in no acute distress, pleasant. NECK: no carotid bruit, no jugular venous distention. SKIN: no suspicious lesions, warm and dry. HEART: no murmurs, regular rate and rhythm. LUNGS: clear to auscultation bilaterally. ABDOMEN: soft, nontender. EXTREMITIES: no edema. PERIPHERAL PULSES: equal. NEUROLOGIC: No gross deficits, AAO X 3 Assessment & Plan Assessment & Plan (1) Chest pain: Code(s): R07.9 - Chest pain, unspecified Category: Medical (2) Palpitations: Code(s): R00.2 - Palpitations Category: Medical (3) Abnormal liver diagnostic imaging: Code(s): R93.2 - Abnormal findings on diagnostic imaging of liver and biliary tract Category: Medical (4) GERD (gastroesophageal reflux disease): Code(s): K21.9 - Gastro-esophageal reflux disease without esophagitis Category: Medical Plan 63-year-old female who is here for follow-up. She was getting chest discomfort which led to stress testing followed by coronary CTA. Coronary CTA just showed minimal disease in the coronary arteries. Medical management is pursued and she is on baby aspirin and simvastatin 20 mg daily. LDL target is less than 70. Blood pressure is well controlled currently. She continues to get some chest discomfort and has some chest pains worse with laying flat. Clinical story is concerning for likely gastroesophageal reflux disease. I am referring her to Gastroenterology for further assessment as she may need endoscopy. If after GI assessment it was felt that aspirin needs to be discontinued then it can be discontinued as it is not a mandatory drug currently. The pulmonary artery was dilated on the coronary CTA and we will check echo to assess the PA pressures. She will also get an abdominal ultrasound to assess the liver because there was small lesion/cyst seen in the liver. Thank you for allowing me to participate in the care of your patient. Please feel free to contact me if you have any questions. Orders: Orders CA echo transthoracic complete Today R00.2 - Palpitations Referrals Gastroenterology Referral K21.9 - Gastro-esophageal reflux disease without esophagitis Coding Level of Care Code Est Pt Level 4 (14050) Diagnoses Chest pain R07.9 Palpitations R00.2 Abnormal liver diagnostic imaging R93.2 GERD (gastroesophageal reflux disease) K21.9
== END 2024-04-20 11:46 | disposition home or self-care (01) ==
PROVIDERS: PCP General Practice; Referring Provider General Practice; Visit Provider Internal Medicine Cardiovascular Disease
DX: R07.9 Chest pain, unspecified (principal); R00.2 Palpitations; R93.2 Abnormal findings on diagnostic imaging of liver and biliary tract; K21.9 Gastro-esophageal reflux disease without esophagitis
CPT/HCPCS: 99214

== ENCOUNTER → 2024-04-20 10:49 | Outpatient (BNVA) | payer MEDICAID, SELFPAY | PROVIDERS: PCP General Practice; Visit Provider Internal Medicine Cardiovascular Disease | DX: R07.9 Chest pain, unspecified (principal); R00.2 Palpitations | CPT/HCPCS: 99212 ==

== ENCOUNTER 2024-04-24 09:17 | Outpatient (REF) | payer MEDICAID, SELFPAY ==
--- NOTE | ~2024-04-24 | US_ITS ---
EXAMINATION: US ABDOMEN COMPLETE CLINICAL INFORMATION: Abnormal findings on diagnostic imaging of liver and biliary tract. COMPARISON: CT abdomen and pelvis September 22, 2021. TECHNIQUE: Real-time imaging of the abdominal viscera. FINDINGS: PANCREAS: Normal. ABDOMINAL AORTA: The proximal, mid, and distal segments are normal in caliber. INFERIOR VENA CAVA: Visualized portions are normal. LIVER: The liver is normal in size. The liver contour is normal. Parenchymal echogenicity is normal. Simple appearing 1.3 cm left hepatic cyst. There is no intrahepatic biliary duct dilatation seen. GALLBLADDER: The gallbladder is physiologically distended. Suspected 4 mm gallstone. No gallbladder wall thickening or pericholecystic fluid appreciated. Negative sonographic Dhaliwal's sign. COMMON BILE DUCT: Normal in caliber measuring 0.7 cm in diameter. RIGHT KIDNEY: The kidney measures 10.7 cm in maximum dimension. No renal calculi or hydronephrosis. Several relatively simple-appearing cysts are noted within the right kidney, the largest measuring approximately 1.5 cm. LEFT KIDNEY: The kidney measures 11.1 cm in maximum dimension. No renal calculi or hydronephrosis. 7 mm mid pole cyst. SPLEEN: Normal. The spleen measures 10.7 cm in maximum dimension. FREE FLUID: None. US/US abdomen complete IMPRESSION: 1. Cholelithiasis. No other sonographic evidence to suggest acute cholecystitis. 2. Small hepatic and bilateral renal cysts. Electronically signed by: Michael Ramos MD 05/16/2024 09:37 AM EDT
== END 2024-04-24 09:18 | disposition home or self-care (01) ==
LOC: HO.US 09:17
PROVIDERS: PCP General Practice; Visit Provider Internal Medicine Cardiovascular Disease
DX: R93.2 Abnormal findings on diagnostic imaging of liver and biliary tract (principal)
CPT/HCPCS: 76700

== ENCOUNTER → 2024-05-21 13:44 | Outpatient (REF) | payer MEDICAID, SELFPAY ==
--- NOTE | 2024-05-21 14:10 | CA_ITS ---
Transthoracic Echocardiogram Patient (Last, First, Middle): Sil Salcedo G Gender: Female Date of : 1960 Age: 63 Procedure Date: 05/21/2024 Procedure Type: Transthoracic Echocardiogram Location: OP Height: 160. cm Weight: 72.12 kg BSA: 1.75 m2 Heart Rate: 70 bpm BP: 135 / 75 mmHg Molder Shoulder Pad: HINA Myers MD: Jose Aguilar MD Symptoms: R00.2 - Palpitations Study Quality: Fair ECG Rhythm: Sinus Conclusions: - Normal left ventricular size and systolic function. There is mildly increased left ventricular wall thickness. The visually estimated ejection fraction is between 60-65%. Normal global longitudinal strain. - E/E prime ratio is between 8 and 15 consistent with indeterminate filling pressures. - Normal right ventricular cavity size and systolic function. Findings Left Ventricle Normal left ventricular size and systolic function. There is mildly increased left ventricular wall thickness. The visually estimated ejection fraction is between 60-65%. There is no evidence of regional wall motion abnormalities. Abnormal diastolic function is noted. Spectral Doppler is indicative of a pseudonormal filling pattern. E/E prime ratio is between 8 and 15 consistent with indeterminate filling pressures. Right Ventricle Normal right ventricular cavity size and systolic function. Atria The left atrium is mildly dilated. The right atrium is normal in size. Aortic Valve Normal aortic valve structure and function. There is no aortic valve stenosis. There is no aortic valve regurgitation. Mitral Valve The mitral valve appears normal. There is trace mitral valve regurgitation. There is no mitral valve stenosis. Pulmonic Valve The pulmonic valve is normal. There is trace pulmonic valve regurgitation. Tricuspid Valve Normal tricuspid valve structure. There is trace tricuspid valve regurgitation. Normal right atrial pressure. There is no evidence of pulmonary hypertension. Great Vessels All visible segments of the aorta are normal in size. The visualized portions of the pulmonary artery and branches are normal. Venous The inferior vena cava is normal in size and collapses greater than 50% with inspiration. Pericardium/Pleural There is no evidence of pericardial effusion. Measurements 2D Linear Measurements IVSd: 1.04 0.6-0.9/0.6-1.0 cm LVIDd: 4.59 3.9-5.3/4.2-5.9 cm LVIDd Index: 2.62 2.4-3.2/2.2-3.1 cm/m2 LVIDs: 2.85 2.0-3.6 cm LVPWd: 0.93 0.7-1.1 cm LA Diam: 3.60 2.7-3.8/3.0-4.0 cm LAIDs Index: 2.06 1.5-2.3 cm/m2 LV Mass: 193.29 67-162/88-224 g LV Mass Index: 110.45 43-95/49-115 g/m2 LVOT Diam: 1.90 3.0+(-)1.3 cm 2D Systolic Function EF 4C: 65.90 >55% EF 2C: 68.20 >55% EF BiP: 67.90 >55% Mitral Valve MV Pk E: 0.90 MV PK A: 0.75 MV Decel Time: 151.00 E/A: 1.20 E'Lateral: 9.25 E'Medial: 7.07 E/E' Med: 12.80 E/E' Lat: 9.80 PHT: 44.00 MVA PHT: 5.00 Decel Mchenry: 5.98 Aortic Valve AoV Pk Carlton: 1.34 AoV Mn Carlton: 0.84 AoV VTI: 0.29 AoV Pk Grad: 7.00 Aov Mn Grad: 3.00 YONY Cont.VTI: 2.24 LVOT LVOT Pk Carlton: 1.02 LVOT Mn Carlton: 0.70 LVOT VTI: 0.23 LVOT Pk Grad: 4.00 LVOT Mn Grad: 2.00 LVOT Diam: 1.90 LVOT Area: 2.84 Diastolic Function MV Pk E: 0.90 MV Pk A: 0.75 E/A: 1.20 E'Medial: 7.07 E/E' Med: 12.80 E' Laterial: 9.25 E/E' Lat: 9.80 Right Ventricle TAPSE (mm): 29.60 TVS' Carlton: 12.60 Tricuspid Valve TR Pk Carlton: 1.86 TR Pk Grad: 14.00 RA Press: 3.00 RVSP: 17.00 Great Vessels Aorta Sinus of Valsalva: 3.30 2.0-3.5 cm Ao Asc: 3.20 2.1-3.4 cm Pulmonary Valve PV Pk Carlton: 0.84 Peak PV Grad: 3.00 Updated in Other Vendor System with Status of Final Jose Aguilar MD electronically signed on 05/22/2024 10:28:40 AM with status of Final
== END ==
LOC: HO.CARD 13:44
PROVIDERS: PCP General Practice; Visit Provider Internal Medicine Cardiovascular Disease
DX: R00.2 Palpitations (principal)
CPT/HCPCS: 93306

== ENCOUNTER → 2024-05-21 14:10 | Outpatient (BNV) | payer MEDICAID, SELFPAY | PROVIDERS: PCP General Practice; Visit Provider Internal Medicine Cardiovascular Disease | DX: I51.89 Other ill-defined heart diseases (principal) | CPT/HCPCS: 93306; 93356 ==

== ENCOUNTER 2024-09-03 11:42 | Outpatient (REF) | payer MEDICAID, SELFPAY ==
[2024-09-03 14:33] LABS: Alanine Aminotransferase 26 U/L (0-31); Albumin Level 4.6 g/dL (3.5-5.0); Alkaline Phosphatase 80 U/L (39-117); Anion Gap 12 (12-20); Aspartate Amino Transferase 20 U/L (5-31); Bilirubin Total 0.5 mg/dL (0.0-1.0); Blood Urea Nitrogen 11 mg/dL (9-16); Calcium 9.8 mg/dL (8.4-10.2); Carbon Dioxide 28 mmol/L (22-29); Chloride 106 mmol/L (96-108); Estimated Glomerular Filt Rate > 60; Glucose Random 96 mg/dL (60-115); Potassium 3.5 mmol/L (3.3-5.1); Sodium 142 mmol/L (135-145); Total Protein 7.7 g/dL (6.5-8.0)
[2024-09-05 14:59] LABS: H Pylori Breath Test Positive (Negative)
== END 2024-09-03 11:43 | disposition home or self-care (01) ==
LOC: HO.LAB 11:42
PROVIDERS: PCP General Practice; Visit Provider Nurse Practitioner
DX: K21.9 Gastro-esophageal reflux disease without esophagitis (principal); K80.20 Calculus of gallbladder without cholecystitis without obstruction
CPT/HCPCS: 36415; 80053; 83013; 99212

== ENCOUNTER 2024-09-03 11:42 | Outpatient (AMB) | payer MEDICAID, SELFPAY ==
[2024-09-03 11:55] VITALS: BP 142/89; PULSE 71; BMI 27.7
--- NOTE | 2024-09-03 11:55 | A.OFFVIS_ITS ---
Vital Signs 3 09/03/24 11:55 Height 5 ft 3 in Weight 156 lb 8.451 oz BMI 27.7 BP 142/89 H Blood Pressure Location Lt brachial Position Sitting Pulse 71 Intake Visit Reasons: GERD w/o esophagitis. Intake Note: New patient in office today for evaluation and management of GERD. CC: Patient c/o epigastric tightness and feeling like she can't swallow or breath well. Onset of symptoms 2 years ago and symptoms occurr 4-5 times daily. She reports feeling like she has something in her esophagus when she swallows. Denies other GI symptoms. Elastic Attacher Coverstitch Required: Yes Elastic Attacher Coverstitch Name: son in law Accompanied by: son in law Allergies hydroxychloroquine [From PLAQUENIL] Allergy (Unknown, Verified 09/03/24 12:01) AFFECTED VISION HPI HPI GERD w/o esophagitis.: Details: 63-year-old female here for initial evaluation of GERD. She is referred by [facility]. PMX Hypertension Impaired fasting glucose Vertigo Tension headaches Osteoarthritis left knee Depression with insomnia Lichen sclerosis History of right humerus fracture Overactive bladder GALLSTONES * SURGICAL HISTORY Left total knee replacement Hysterectomy section Colonoscopy-2013= hyperplastic polyps; [place] * ALLERGIES Hydroxychloroquine * [employer] LABS: No current labs ULTRASOUND OF THE ABDOMEN 05/16/24 FINDINGS: PANCREAS: Normal. ABDOMINAL AORTA: The proximal, mid, and distal segments are normal in caliber. INFERIOR VENA CAVA: Visualized portions are normal. LIVER: The liver is normal in size. The liver contour is normal. Parenchymal echogenicity is normal. Simple appearing 1.3 cm left hepatic cyst. There is no intrahepatic biliary duct dilatation seen. GALLBLADDER: The gallbladder is physiologically distended. Suspected 4 mm gallstone. No gallbladder wall thickening or pericholecystic fluid appreciated. Negative sonographic Dhaliwal's sign. COMMON BILE DUCT: Normal in caliber measuring 0.7 cm in diameter. RIGHT KIDNEY: The kidney measures 10.7 cm in maximum dimension. No renal calculi or hydronephrosis. Several relatively simple-appearing cysts are noted within the right kidney, the largest measuring approximately 1.5 cm. LEFT KIDNEY: The kidney measures 11.1 cm in maximum dimension. No renal calculi or hydronephrosis. 7 mm mid pole cyst. SPLEEN: Normal. The spleen measures 10.7 cm in maximum dimension. FREE FLUID: None. US/US abdomen complete IMPRESSION: 1. Cholelithiasis. No other sonographic evidence to suggest acute cholecystitis. 2. Small hepatic and bilateral renal cysts. TODAY'S VISIT Brazilian # son translates per pt request. She has been suffering GERD and HB for 3 years. she was unaware of her gallstones. I educated her on avoiding fatty foods. She has mild epigastric pain but no other bloating or pain. No CIC or diarrhea. She was on omeprazole of unknown dose over a year ago that was not helpful. I will start her on pantorpazole, get an HP breath test, HIDA scan and barium swallow. She is due for a screening colonoscopy, but we will discuss this at a later date anbd see if EGD is needed. ROV 8 weeks PFSH Medical History Contracture of left knee History of revision of total replacement of left knee joint Depression Hyperlipidemia HTN (hypertension) GERD (gastroesophageal reflux disease) [place] Surgical History H/O colonoscopy History of partial hysterectomy Hx of section History of knee replacement procedure of left knee (~1997) Family History Mother Hypertension Father No problems noted. Maternal Aunt Cancer Social History Household Members: None Housing: Apartment Alcohol intake: current Alcohol intake frequency: holidays/special occasions only Patient Tobacco Use Status: Never used Tobacco Review of Systems Const Denies fatigue, Denies fever(s), Denies night sweats, Denies poor appetite, Reports weight gain and Denies weight loss Eyes Details: Glasses Reports requires corrective lenses ENT Reports Normal hearing present, Denies dental pain, Denies dysphagia, Denies hearing loss, Denies mouth pain, Denies odynophagia, Denies throat swelling, Denies tongue swelling and Reports other (Dentition adequate) Card Reports no additional complaints Resp Reports no additional complaints GI Details: Reports abdominal pain, Denies melena, Denies bloating, Denies hematochezia, Denies constipation, Denies GI cramping, Denies dysphagia, Denies excessive flatus, Denies early satiety, Reports heartburn, Denies diarrhea, Denies nausea, Denies odynophagia, Denies vomiting and Denies hematemesis Skin/Breast Denies pruritus, Denies lesions, Denies rash and Denies jaundice Neuro Reports Normal hearing present and Denies Abnormal speech present Endo Denies fatigue Aller/Immun Denies throat swelling and Denies tongue swelling Physical Exam Vital Signs: Last Vital Signs Pulse 71 09/03/24 11:55 BP 142/89 H 09/03/24 11:55 BMI result Body Mass Index 27.7 Const General: cooperative, no acute distress, well developed and well groomed Nutritional Appearance: well nourished and obese centrally obese Orientation/consciousness: oriented to person, oriented to place and oriented to time Limitations: language barrier and ambulation with cane HEENT Head: Yes normocephalic and Yes atraumatic Eyes General: appearance normal, both eyes and all related structures Pupils: Equal, round and reactive pupils present Neck Neck: Yes normal visual inspection and Yes no lymphadenopathy Thyroid: Thyroid normal Resp Effort & Inspection: normal respiratory effort and able to speak in complete sentences Auscultation: clear to auscultation bilaterally Cardio Rate: regular rate Rhythm: regular rhythm Heart sounds: Normal, physiologic split S2 sound present Peripheral pulses: radial pulses present and posterior tibial pulses present GI Inspection: No distended, No Abdominal panniculus present and Yes obesity Palpation (GI): Soft to palpation, nontender, no guarding, not rigid and No hepatosplenomegaly present Percussion: Yes normal to percussion Auscultation: normal bowel sounds Rectal Exam - Female: deferred Abdomen image: 2 1. surgical scars Skin General skin exam: no rashes or lesions noted, turgor normal, skin not dry, no jaundice, No spider nevi and no striae Rashes: no rashes Nails: normal Neuro General: oriented to person, oriented to place and oriented to time Cranial nerves: Yes Equal, round and reactive pupils present and Yes Normal hearing present Speech: No Abnormal speech present Extrem General: Yes normal to inspection, No clubbing, No cyanosis and No edema Psych Appearance: grossly normal and well kempt Mental Status: mental status grossly normal Speech and movement: Normal speech and movement present Affect: normal affect Attitude: cooperative Thought process: Normal thought process present and not confabulating Thought content: Normal thought content present Insight: Limited insight present (Psych) Judgement: Limited judgement present (Psych) Assessment & Plan Assessment & Plan (1) GERD (gastroesophageal reflux disease): Code(s): K21.9 - Gastro-esophageal reflux disease without esophagitis Category: Medical (2) Gallstones: Code(s): K80.20 - Calculus of gallbladder without cholecystitis without obstruction Category: Medical Plan Brazilian # son translates per pt request. She has been suffering GERD and HB for 3 years. she was unaware of her gallstones. I educated her on avoiding fatty foods. She has mild epigastric pain but no other bloating or pain. No CIC or diarrhea. She was on omeprazole of unknown dose over a year ago that was not helpful. I will start her on pantorpazole, get an HP breath test, HIDA scan and barium swallow. She is due for a screening colonoscopy, but we will discuss this at a later date anbd see if EGD is needed. ROV 8 weeks Orders: Orders 2 H Pylori Breath Test Today K21.9 - Gastro-esophageal reflux disease without esophagitis, K80.20 - Calculus of gallbladder without cholecystitis without obstruction FL barium swallow Today K21.9 - Gastro-esophageal reflux disease without esophagitis, K80.20 - Calculus of gallbladder without cholecystitis without obstruction NM hepatobiliary w pharm Today K21.9 - Gastro-esophageal reflux disease without esophagitis, K80.20 - Calculus of gallbladder without cholecystitis without obstruction Comprehensive Met. Panel Today K21.9 - Gastro-esophageal reflux disease without esophagitis, K80.20 - Calculus of gallbladder without cholecystitis without obstruction Medications: New 2 pantoprazole (Protonix) 40 mg PO DAILY 30 tabs 6RF 30 days K21.9 - Gastro- esophageal reflux disease without esophagitis Coding Level of Care Code New Pt Level 3 (92109) Diagnoses GERD (gastroesophageal reflux disease) K21.9 Gallstones K80.20
== END 2024-09-03 13:01 | disposition home or self-care (01) ==
PROVIDERS: PCP General Practice; Visit Provider Nurse Practitioner
DX: K21.9 Gastro-esophageal reflux disease without esophagitis (principal); K80.20 Calculus of gallbladder without cholecystitis without obstruction
CPT/HCPCS: 99203

== ENCOUNTER → 2024-10-05 10:54 | Outpatient (REF) | payer MEDICAID, SELFPAY ==
--- NOTE | ~2024-10-05 | NM_ITS ---
EXAMINATION: NM BILIARY TRACT CLINICAL INFORMATION: Gastroparesis or reflux disease without esophagitis. COMPARISON: Ultrasound abdomen 04/24/2024 TECHNIQUE: Following intravenous administration of 5 mCi of technetium 90 9M mebrofenin, imaging over the abdomen was obtained up to 60 minutes. At 60 minutes 1.4 mcg of CCK was injected through a pump over 30 minutes and imaging obtained up to 30 minutes. FINDINGS: The liver is normal size with normal hepatic uptake. No focal lesion seen. There is prompt visualization of CBD by 15 minutes. Small bowel is visualized by 18 to 19 minutes. Gallbladder is visualized by 41 minutes. Post-CCK gallbladder ejection fraction at 10 minutes is 59%. Ejection fraction at 20 minutes is 81% Ejection fraction at 30 minutes is 90%. NM/NM hepatobiliary w pharm IMPRESSION: Normal hepatic uptake. No focal lesion. Patent cystic duct and CBD. Normal gallbladder ejection fraction post CCK measuring 90% at 30 minutes Electronically signed by: Elier Ly MD 10/05/2024 02:28 PM [facility] [place]
== END ==
LOC: HO.NUCMED 10:54
PROVIDERS: PCP General Practice; Visit Provider Nurse Practitioner
DX: K21.9 Gastro-esophageal reflux disease without esophagitis (principal); K80.20 Calculus of gallbladder without cholecystitis without obstruction
CPT/HCPCS: 78227; A9537

== ENCOUNTER → 2024-10-05 10:59 | Outpatient (BNV) | payer MEDICAID, SELFPAY | PROVIDERS: PCP General Practice; Visit Provider Radiology Diagnostic Radiology | DX: K82.8 Other specified diseases of gallbladder (principal); K83.5 Biliary cyst | CPT/HCPCS: 78227 ==

== ENCOUNTER 2024-11-25 08:57 | Outpatient (REF) | payer MEDICAID, SELFPAY ==
--- NOTE | ~2024-11-25 | FL_ITS ---
EXAMINATION: XR FLUOROSCOPY ESOPHAGRAM CLINICAL INFORMATION: Gastroesophageal reflux disease without esophagitis. Patient complaining of food getting stuck . COMPARISON: None TECHNIQUE: Fluoroscopic air contrast upper GI examination was performed utilizing standard techniques with thin and thick barium and effervescent granules. Numerous spot images were obtained. Several fluoroscopic image hold cine sequences were also obtained. Associate Professor Of Biblical Studies was present for the examination. FINDINGS: UPPER GI SERIES: Lateral cine images of the oropharynx and hypopharynx demonstrate normal swallow mechanism with normal epiglottic inversion and soft palate elevation. No tracheal penetration, glottic or subglottic aspiration identified. No nasopharyngeal reflux present. Hypopharyngeal structures appear normal without evidence of mass or diverticulum. There was mild cricopharyngeal achalasia. Dual and single contrast images of the esophagus demonstrate normal caliber, contour, and mucosal pattern. No evidence of stricture, mass, or ulcerations identified. Esophageal peristalsis was moderately disordered. No evidence of hiatus hernia identified. GE junction demonstrated mild to moderate smooth short segment narrowing. No significant gastroesophageal reflux was seen during the course of the examination and on reflux views. Dual contrast and single contrast images of the stomach demonstrated normal contour. There was diffuse mild thickening of the areae gastricae. Normal gastric rugal fold pattern. No discrete ulceration or mass. Tiny filling defects in the fundus are likely labor representative of small hyperplastic polyps. Contrast freely passed into the gastric antrum and duodenal bulb without delay. Single and air-contrast images of the duodenal bulb demonstrate no abnormality. The duodenal sweep has a normal appearance, course, and mucosal fold appearance. FLUOROSCOPY TIME: 2 minutes, 31 seconds. Number of Spot Images:11 Number of cines obtained: 13 DOSE AREA PRODUCT: 2337 uGy-m2 (microgray-meter squared) FL/FL barium swallow with air IMPRESSION: 1. Mild cricopharyngeal achalasia. 2. Moderately disordered esophageal peristalsis. 3. Mild to moderate narrowing at the GE junction, appearance suggestive of mild achalasia. 4. Mild thickening of the gastric areae gastricae, in keeping with mild gastritis. Probable tiny hyperplastic polyps in the fundus. 5. No definite gastroesophageal reflux identified during the course of the exam. Electronically signed by: Damien Whitley MD 11/25/2024 10:03 AM EDT
--- OUTSIDE RECORDS SUMMARY | 2024-11-25 09:34 | XMS_ITS | Clinical Summary ---
Author Organization [facility] it Address [address] [place] [address] Care Team Providers Care Butter Wrapper Name Role Phone Unavailable Primary Care Provider Unavailabl e Social History Tobacco Use Types Packs/Day Years Used Date Smoking Tobacco: Never Assessed Comments Unknown Sex and Gender Information Value Date Recorded Sex Assigned at Not on file Legal Sex Female 4:33 AM EST Gender Identity Not on file Sexual Orientation Not on file Plan of Treatment Health Maintenance Due Date Last Done Comments Breast Cancer Screening 1961 DTaP,Tdap,and Td Vaccines (1 - Tdap) 1980 Cervical Cancer Screening: P ap Smear 1982 Pneumococcal Vaccine: 50+ Ye ars (1 of 1 - PCV) 12/05/2011 Zoster Vaccines (1 of 2) 12/05/2011 Colorectal Cancer Screening: Colonoscopy 08/19/2022 Depression Screening 08/19/2022 HIV Screening 08/19/2022 Hepatitis C Screening 08/19/2022 Social Influencers of Health Screening 08/19/2022 COVID-19 Vaccine ( - 2023-2 5 season) 2024 Influenza Vaccine (#1) 2024 RSV Immunization Patients 60 + Years Old (1 - 1-dose 75+ series) 2036 HIB Vaccines Aged Out No longer eligi ble based on patient's age to complete this topic HPV Vaccines Aged Out No longer eligi ble based on patient's age to complete this topic Hepatitis A Vaccines Aged Out No long er eligible based on patient's age to complete this topic Hepatitis B Vaccines Aged Out No long er eligible based on patient's age to complete this topic IPV Vaccines Aged Out No longer eligi ble based on patient's age to complete this topic MMR Vaccines Aged Out No longer eligi ble based on patient's age to complete this topic Meningococcal ACWY Vaccine Aged Out N o longer eligible based on patient's age to complete this topic Meningococcal B Vacine Aged Out No lo nger eligible based on patient's age to complete this topic Pneumococcal Vaccine: Pediat rics (0 to 5 Years) and At-Risk Patients (6 to 64 Years) Aged Out No longer eligible b ased on patient's age to complete this topic RSV Immunization Patients Un rylan 20 months Aged Out No longer eligible b ased on patient's age to complete this topic Varicella Vaccines Aged Out No longer eligible based on patient's age to complete this topic
--- OUTSIDE RECORDS SUMMARY | 2024-11-25 09:34 | XMS_ITS | Encounter Summary ---
Author Organization [email or web address] Address [address] [place] [address] Care Team Providers Care Blower Room Attendant Name Role Phone Nae Whipple MD Primary Care Provider [phone] Reason for Visit * Reason Onset Date Comments Status Request 05/12/2024 Encounter Details Date Type Department Care Team ([facility] st Contact Info) Description 05/12/2024 Telephone [facility] [address], [place] [id number] Nae Whipple MD [address] [place], [place] [id number] Status Request Social History Tobacco Use Types Packs/Day Years Used Date Smoking Tobacco: Never Passive Smoke Exposure: Never Smokeless Tobacco: Never Alcohol Use Standard Drinks/Week Comments Never 0 (1 standard drink = 0.6 oz pur e alcohol) Housing Stability Answer Date Recorded What is your housing situation today? I have deloris salas 07/01/[address] you li ve. Do you have problems with any of the following? None of the above 07/01/2023 Food Insecurity Answer Date Recorded Within the past 12 months, y ou worried that your food would run out before you got money to buy more: Never True 07/01/2023 Within the past 12 months,th e food you bought just didn't last and you didn't have enough money to get more: Never True Transportation Answer Date Recorded In the past 12 months, has l ack of transportation kept you from medical appts, meetings, work or from getting things needed for daily living? No 07/01/2023 Utilities Answer Date Recorded In the past 12 months, has t he electric, gas, oil or water company threatened to shut off services in your home? No 07/01/2023 Depression Answer Date Recorded Patient Health Questionnaire-2 Score 2 08/31/2022 Comments Unknown Sex and Gender Information Value Date Recorded Sex Assigned at Female 07/16/2022 10:22 AM EDT Legal Sex Female 10:22 AM EDT Gender Identity Female 07/16/2022 10:22 AM EDT Sexual Orientation Choose not to disclose 2021 10:22 AM EDT documented as of this encounter Miscellaneous Notes * Telephone Encounter - Edilberto Gorge - 05/12/2024 10:15 AM EDT Tc from pt requesting status on INTERIOR BLOCK WIRER form awaiting to be signed. Please contact pt at [phone]. (Stateless Speaker) documented in this encounter Plan of Treatment Upcoming Encounters Date Type Department Care Team (Late st Contact Info) Description 12/16/2024 1:00 PM EDT Office Visit [facility] [address] [place] [address] Beatriz Cardenas 03/03/2025 10:30 AM EDT Office Visit [facility] [address] [place] [address] Bang, Shanda, OD [address] [place] [address] documented as of this encounter Visit Diagnoses Not on filedocumented in this encounter Care Teams Blower Room Attendant Relationship Specialty Start Date End Date Nae Whipple MD [address] [place] [address] PCP - General Family Medicine 07/29/20 Yasmeen Ovalle Ethanol Maintenance MechanicFood Preservation Scientist 10/01/24 documented as of this encounter
--- OUTSIDE RECORDS SUMMARY | 2024-11-25 09:34 | XMS_ITS | Clinical Summary ---
Author Organization [employer] Address [address] [place] [address] Care Team Providers Care Manager Transportation Name Role Phone Nae Whipple MD Primary Care Provider [phone] Allergies Active Allergy Reactions Criticality Noted Date Comments Hydroxychloroquine 07/08/2014 Other reaction(s): Blurred VIsion Medications acetaminophen (Tylenol) 500 MG tablet take 1-2 tablet (1000MG) by oral route every 6 hours as needed 2 01/22/20 26 Active busPIRone (Buspar) 10 MG tablet Take 1 tablet by mouth every 12 (twelve) hours. 2 Active Diclofenac Sodium 1 % gel Apply 2 g topically every 6 (six) hours. Apply 2 gram by topical route 4 times every day to the affected area(s) 2 Active Blood Pressure kit Use on arm to check blood pressure 2-3 times a wekk Active V-R STOOL SOFTENER 100 MG capsule Take 100 mg by mouth in the morning and at bedtime. 2 Active naproxen (Naprosyn) 500 MG tablet Take 500 mg by mouth with breakfast and with evening meal. 2 Active clobetasol (Temovate) 0.05 % ointment APPLY TO LEGS TWICE DAILY NEEDED FOR FLARE. 3 Active hydrOXYzine HCl (Atarax) 10 MG tablet Take 10 mg by mouth if needed in the morning, at noon, and at bedtime. 3 Active triamcinolone (Kenalog) 0.1 % ointment APPLY TO ARMS TWICE DAILY NEEDED FOR FLARE. 3 Active tacrolimus (Protopic) 0.1 % ointment APPLY TOPICALLY TO AFFECTED AREA(S) ON LEGS TWICE DAILY, ALTERNATE WITH steroid 3 Active albuterol 108 (90 Base) MCG/ACT inhalerIndicati ons:Post-COVID chronic dyspnea Inhale 2 puffs every 6 (six) hours if needed for wheezing. 18 g 11 3 Active Calcium Carb-Cholecalci ferol 600-10 MG-MCG tablet TAKE 1 TABLET BY MOUTH TWICE DAILY 180 tablet 3 4 Active simvastatin (Zocor) 20 MG tablet TAKE 1 TABLET BY MOUTH EVERY EVENING 90 tablet 3 4 Active amLODIPine (Norvasc) 5 MG tablet TAKE 1 TABLET BY MOUTH EVERY DAY 90 tablet 3 4 Active enalapril (Vasotec) 20 MG tablet TAKE 1 TABLET BY MOUTH EVERY DAY 90 tablet 3 4 Active Aspirin Low Dose 81 MG EC tablet TAKE 1 TABLET BY MOUTH EVERY DAY 90 tablet 3 4 Active venlafaxine XR (Effexor XR) 150 MG 24 hr capsuleIndicati ons:Depressive disorder TAKE 1 CAPSULE BY MOUTH ONCE DAILY 90 capsule 3 5 Active oxybutynin XL (Ditropan-XL) 10 MG 24 hr tabletIndicatio ns:Overactive bladder TAKE 1 TABLET BY MOUTH EVERY MORNING. DO NOT BREAK, CRUSH, DISSOLVE OR CHEW. 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 Assessment & Plan (08/28/2023 6:49 AM EST): Start Albuterol prn O2 sat 97% Vertigo 05/15/2023 Assessment & Plan (05/15/2023 10:36 AM EDT): Consider acupuncture for pain and disbalance Order PT for gait training Need for assistance with personal care 3 Tension type headache 05/15/2023 Assessment & Plan (05/15/2023 10:34 AM EDT): Likely related to mood and poor sleep Tylenol prn Palpitation 05/15/2023 Assessment & Plan (05/15/2023 10:35 AM EDT): Normal TSH and CBC Refer to cards for Echo/Holter Primary osteoarthritis of left knee 08/31/2022 Assessment & Plan (11/27/2022 12:59 PM EDT): Saw ortho Recommended no further surgery or injection Recommend caution with pain/presyncopal symptoms Assessment & Plan (08/31/2022 12:47 PM EST): Saw ortho Recommended no further surgery or injection Recommend caution with pain/presyncopal symptoms IFG (impaired fasting glucose) 08/20/2022 Assessment & Plan (08/31/2022 12:47 PM EST): Normal today Insomnia 08/20/2022 Urinary urgency 06/19/2021 Gastroesophageal reflux disease 07/10/2012 Morphea 07/10/2012 Assessment & Plan (11/27/2022 1:00 PM EDT): Steroid creams as needed, reserve high-potency cream for severe flares Depressive disorder 04/18/2012 Assessment & Plan (05/15/2023 10:36 AM EDT): Continue BHN Continue Effexor 150mg daily No SI/HI Encouraged activating strategies Assessment & Plan (11/27/2022 1:00 PM EDT): Continue BHN Continue Effexor 150mg daily No SI/HI Encouraged activating strategies Assessment & Plan (08/31/2022 12:47 PM EST): Continue BHN Continue Effexor 150mg daily No SI/HI Hypertension 04/18/2012 Assessment & Plan (05/15/2023 10:34 AM EDT): Continue meds Last electrolytes 11/2022 normal GFR > 60 Assessment & Plan (11/27/2022 12:59 PM EDT): Continue meds Last electrolytes 11/2022 normal GFR > 60 Assessment & Plan (08/31/2022 12:46 PM EST): Continue meds Last electrolytes 05/2022 normal Encounters Date Type Department Care Team Description 11/04/2024 Telephone [facility] [address] [place] [address] Nae Whipple MD 10/15/2024 2:30 PM EST Office Visit [facility] ADULT DENTAL [address] [place] [address] Netta Gustafson DDS Encounter for dental examination (Primary Dx); Dental calculus; Periodontal disease; Dental plaque 10/12/2024 Refill [facility] MED[facility] [address] [place] [address] Nae Whipple MD Depressive disorder; Overactive bladder 10/05/2024 Orders Only [facility] External Provider, [facility] 10/01/2024 Telephone [facility] [address] [place] [address] Nae Whipple MD Care Coordination (ICP care plan) 09/03/2024 Orders Only GENERIC EXTERNAL DATA DEPARTMENT Provider, Generic External Data from Last 3 Months Immunizations Name Administration Dates Next Due DT (pediatric) 02/15/2012 Influenza injectable quadrivalent preservative f ree 08/31/2022 Influenza, IIV3, injectable 07/08/2014, 2 Influenza, Split (incl. purified surface antigen ) 07/23/2013 Influenza, seasonal, injectable, preservative fr ee 07/06/2024 Moderna Covid-19 Vaccine 12+ 02/02/2021,01/06/20 21 Pneumococcal Polysaccharide PPSV23 08/17/2014 Tdap 02/15/2012 Family History Medical History Relation Name Comments Cataracts Father Cataracts Mother Relation Name Status Comments Father Mother Social History Tobacco Use Types Packs/Day Years Used Date Smoking Tobacco: Never Passive Smoke Exposure: Never Smokeless Tobacco: Never Alcohol Use Standard Drinks/Week Comments Never 0 (1 standard drink = 0.6 oz pur e alcohol) Depression Answer Date Recorded Patient Health Questionnaire-9 Score 8 07/06/2024 Patient Health Questionnaire-9 Score 8 07/06/2024 Last PHQ-9: Questionnaire Data Not on file 1 Housing Stability Answer Date Recorded What is your housing situation today? I have deloris salas 06/26/[address] you li ve. Do you have problems with any of the following? None of the above 06/26/2024 Food Insecurity Answer Date Recorded Within the past 12 months, y ou worried that your food would run out before you got money to buy more: Never True 06/26/2024 Within the past 12 months,th e food you bought just didn't last and you didn't have enough money to get more: Never True 07/2024 Transportation Answer Date Recorded In the past 12 months, has l ack of transportation kept you from medical appts, meetings, work or from getting things needed for daily living? Yes, it has kept me from medical appointments or getting medications. 07/06/2024 Utilities Answer Date Recorded In the past 12 months, has t he electric, gas, oil or water company threatened to shut off services in your home? No 06/26/2024 Depression Answer Date Recorded Patient Health Questionnaire-2 Score 2 07/06/2024 Internet Access Answer Date Recorded Internet Access Q1 No 07/06/2024 Internet Access Q2 My internet/Wi-Fi ac cess is not consistent or reliable 07/06/2024 Comments Unknown Sex and Gender Information Value Date Recorded Sex Assigned at Female 07/16/2022 10:22 AM EDT Legal Sex Female 10:22 AM EDT Gender Identity Female 07/16/2022 10:22 AM EDT Sexual Orientation Choose not to disclose 2021 10:22 AM EDT Last Filed Vital Signs Vital Sign Reading Time Taken Comments Blood Pressure 128/85 07/06/2024 10:16 AM EDT Pulse 77 07/06/2024 10:16 AM EDT Temperature 36.8 ??C (98.3 ??F) 07/06/2024 10:16 AM E DT Respiratory Rate 20 07/06/2024 10:16 AM EDT Oxygen Saturation 98% 07/06/2024 10:16 AM EDT Inhaled Oxygen Concentration - - Weight 70.6 kg (155 lb 9.6 oz) 07/06/2024 10:16 AM EDT Height 160 cm (5' 3 ) 07/06/2024 10:16 AM EDT Body Mass Index 27.56 07/06/2024 10:16 AM EDT Plan of Treatment Upcoming Encounters Date Type Department Care Team (Late st Contact Info) Description 12/16/2024 1:00 PM EDT Office Visit [facility] [address], [place] [phone] Cardenas, Beatriz 03/03/2025 10:30 AM EDT Office Visit [facility] OPTOM[facility] [address] [place], [place] [phone] Bang, Shanda, OD [address] [place] [address] Health Maintenance Due Date Last Done Comments CT Colonography 1961 FIT DNA/Cologuard 1961 FIT 1961 FOBT 1960 HIV Screening 1961 Sigmoidoscopy 1961 Hepatitis C Screening 12/05/1979 Pap Smear 1982 HPV/Cotest 12/05/1991 Zoster Vaccines (1 of 2) 12/05/2011 Pneumococcal Vaccine: 50+ Years (2 of 2 - PCV) 08/17/2015 08/17/2014 Dental Prophylaxis 08/16/2019 02/13/2019, 0 02/20/2018, 08/20/2017, Additional history exists DTaP/Tdap/Td Vaccines (2 - Td or Tdap) 02/14/2022 02/15/2012 COVID-19 Vaccine ( season) 2024 02/02/2021, 01/05/2021 Colonoscopy 07/01/2024 07/01/2014 Colorectal Cancer Screening 07/01/2024 Mammogram 03/11/2025 03/11/2024, 02/15, 03/08/2023, Additional history exists Dental Oral Exam 04/15/2025 10/15/2024, , 08/20/2017, Additional history exists Alcohol/Substance Use Screening 07/06/2025 07/06/2024 Depression Screening 07/06/2025 07/06/2024, 07/06/20 24 SDOH Screening 07/06/2025 07/06/2024 Tobacco Screening 10/15/2025 10/15/2024 Dental X-Ray: Bitewings 10/16/2025 10/15/19 25, 02/13/2019, 08/20/2017, Additional history exists Lipid Panel 05/25/2027 05/25/2022 Dental X-Ray: Full Mouth 10/16/2027 025, 02/13/2019, 12/25/2012 RSV Patients and Patients Aged 60 years or older (1 - 1-dose 75+ series) 2036 Influenza Vaccine Completed 07/06/2024, , 07/08/2014, Additional history exists Cervical Cancer Screening Discontinued HIB Vaccines Aged Out No longer eligi [...] patient's age to complete this topic Meningococcal Vaccine Aged Out No clem donald eligible based on patient's age to complete this topic RSV under 20 months Aged Out No longe r eligible based on patient's age to complete this topic Rotavirus Vaccines Aged Out No longer eligible based on patient's age to complete this topic Procedures Procedure Name Priority Date/Time Associated Diagnosis Comments CASE PRESENTATION, DETAILED AND EXTENSIVE TREATMENT PLANNING Routine 10/15/2024 2:30 PM EST Encounter for dental examination Dental calculus Periodontal disease Dental plaque INTRAORAL - COMPLETE SERIES OF RADIOGRAPHIC IMAGES Routine 10/15/2024 2:30 PM EST Encounter for dental examination Dental calculus Periodontal disease Dental plaque PERIODIC ORAL EVALUATION - ESTABLISHED PATIENT Routine 10/15/2024 2:30 PM EST Encounter for dental examination Dental calculus Periodontal disease Dental plaque 30,31,18,19 PARTIAL DENTURE - RESIN Routine 10/15/2024 12:00 AM EST NM HEPATOBILIARY W PHARM Routine 10/05/2024 10:59 AM EST COMPREHENSIVE METABOLIC PANEL Routine 09/03/2024 1:12 PM EST HELICOBACTER PYLORI, UREA BREATH TEST Routine 09/03/2024 12:37 PM EST BI MAMMOGRAM SCREENING TOMOSYNTHESIS BILATERAL Routine 03/11/2024 10:28 AM EDT LIPID PANEL, STANDARD Routine 05/25/2022 9:53 AM EDT PROPHYLAXIS - ADULT Routine 02/13/2019 1 2:00 AM EDT HM COLONOSCOPY Routine 07/01/2014 from Last 3 Months or Most Recently Relevant to Health Maintenance Results * NM Hepatobiliary w Pharm (10/05/2024 10:59 AM EST) Anatomical Region Laterality Modality Body Nuclear Medicine 10/05/2024 10:5 9 AM EST Narrative 10/05/2024 2:32 PM EST ? [facility] ?[address] ?[place] [address] ?Nuclear Medicine Report ? Signed ? Patient: Sil Salcedo ?MR#: ?? [id number] ? : 1960 ?Acct:[id number] ? Age/Sex: 63 / F ?ADM Date: 10/05/24 ? Loc: HO.NUCMED ? Attending Dr: Adelaida Davila ANP-C ? Ordering Physician: Adelaida Davila-C ?? Date of Service: 10/05/24 ?? Procedure(s): NM hepatobiliary w pharm ?? Accession Number(s): [id number] ? cc: Adelaida Davila-C; Nae Whipple ? EXAMINATION: ?? NM BILIARY TRACT ? CLINICAL INFORMATION: ?? Gastroparesis or reflux disease without esophagitis. ? COMPARISON: ?? Ultrasound abdomen 04/24/2024 ? TECHNIQUE: ?? Following intravenous administration of 5 mCi of technetium 90 9M ?? mebrofenin, imaging over the abdomen was obtained up to 60 minutes. At ?? 60 minutes 1.4 mcg of CCK was injected through a ??pump over 30 minutes ?? and imaging obtained up to 30 minutes. ? FINDINGS: ?? The liver is normal size with normal hepatic uptake. No focal lesion ?? seen. ? There is prompt visualization of CBD by 15 minutes. ? Small bowel is visualized by 18 to 19 minutes. ? Gallbladder is visualized by 41 minutes. ? Post-CCK gallbladder ejection fraction at 10 minutes is 59%. ? Ejection fraction at 20 minutes is 81% ? Ejection fraction at 30 minutes is 90%. ? NM/NM hepatobiliary w pharm ?? IMPRESSION: ?? Normal hepatic uptake. No focal lesion. ? Patent cystic duct and CBD. ? Normal gallbladder ejection fraction post CCK measuring 90% at 30 ?? minutes ? Electronically signed by: ??Elier Ly MD ??10/05/2024 02:28 PM EST RP ? Dictated By: ?Elier Ly MD ? Signed By: ?<Electronically signed by Elier Ly MD in OV> ?10/05/24 1428 ? DD/ 1059 ? TD/TT: 10/05/24 1240 ? Safety And Health Consultant: MSM ? Procedure Note Rafa Thurston - 10/05/2024 [place] [id number] Nuclear Medicine Report Signed Patient: Sil Salcedo GMR#: [id number] : 2Acct:[id number] Age/Sex: 63 / FADM Date: 10/05/24 Loc: [facility] Attending Dr: Adelaida ROACH Ordering Physician: Adelaida Davila Date of Service: 10/05/24 Procedure(s): NM hepatobiliary w pharm Accession Number(s): [id number] cc: Adelaida Davila; Nae Whipple EXAMINATION: NM BILIARY TRACT CLINICAL INFORMATION: Gastroparesis or reflux disease without esophagitis. COMPARISON: Ultrasound abdomen 04/24/2024 TECHNIQUE: Following intravenous administration of 5 mCi of technetium 90 9M mebrofenin, imaging over the abdomen was obtained up to 60 minutes. At 60 minutes 1.4 mcg of CCK was injected through a pump over 30 minutes and imaging obtained up to 30 minutes. FINDINGS: The liver is normal size with normal hepatic uptake. No focal lesion seen. There is prompt visualization of CBD by 15 minutes. Small bowel is visualized by 18 to 19 minutes. Gallbladder is visualized by 41 minutes. Post-CCK gallbladder ejection fraction at 10 minutes is 59%. Ejection fraction at 20 minutes is 81% Ejection fraction at 30 minutes is 90%. NM/NM hepatobiliary w pharm IMPRESSION: Normal hepatic uptake. No focal lesion. Patent cystic duct and CBD. Normal gallbladder ejection fraction post CCK measuring 90% at 30 minutes Electronically signed by: Elier Ly MD 10/05/2024 02:28 PM EST Dictated By: Elier Ly MD Signed By: <Electronically signed by Elier Ly MD in OV> 10/05/24 1428 DD/ 1059 TD/TT: 10/05/24 1240 Safety And Health Consultant: ABE [facility] External Provider IMG NM PROCEDURES Final Result * Comprehensive Metabolic Panel (09/03/2024 1:12 PM EST) Sodium 142 135 - 145 mmol/L [facility] Potassium 3.5 3.3 - 5.1 mmol/L [facility] Chloride 106 96 - 108 mmol/L [facility] Carbon Dioxide 28 22 - 29 mmol/L [facility] Anion Gap 12 12 - 20 [facility] Urea Nitrogen (BUN) 11 9 - 16 mg/dL [facility] Creatinine, Serum 0.68 0.5 - 1.4 mg/dL [facility] Estimated Glomerular Filt Rate >60 [facility] Comment:Chronic Kidney Disea se: Estimated GFR < 60 mL/min/1.06q8Rerwrg Kidney Disease: Estimated GFR < 15 mL/min/1.73m2 Glucose 96 60 - 115 mg/dL [facility] Calcium 9.8 8.4 - 10.2 mg/dL [facility] Bilirubin, Total 0.5 0.0 - 1.0 mg/dL [facility] Aspartate Amino Transferase 20 5 - 31 U/L [facility] Alanine Aminotransferase 26 0 - 31 U/L [facility] Total Protein 7.7 6.5 - 8.0 g/dL [facility] Albumin Level 4.6 3.5 - 5.0 g/dL [facility] Alkaline Phosphatase 80 39 - 117 U/L [facility] 09/03/2024 1:12 PM EST 09/03/2024 1:20 PM EST Generic External Data Provider LAB BLOOD ORDERAB LES Final Result Performing Organization Address [facility] de Phone Number [facility] [address] [place] [phone] * Helicobacter pylori, Urea Breath Test (09/03/2024 12:37 PM EST) H. pylori Breath Test Positive Negative [facility] Comment:Antimicrobials, prot on pump inhibitors and bismuthpreparations are known to suppress H. pylori. Ingestingthese medications within two weeks prior to performing thebreath test may produce negative test results. A positiveresult is still clinically valid. 09/03/2024 12:3 7 PM EST 09/04/2024 2:01 PM EST [facility] External Data Provider LAB BLOOD ORDERAB LES Final Result Performing Organization Address [facility] de Phone Number [facility] [address] [place] [phone] * BI Mammogram Screening Tomosynthesis Bilateral (03/11/2024 10:28 AM EDT) Anatomical Region Laterality Modality Breast Bilateral Mammography 03/11/2024 10:2 8 AM EDT Narrative 04/10/2024 8:19 AM EDT ? [facility] ? [address] ?[place] [address] ? Mammography Report ? Signed ? Patient: Oviedo Henning,Sil G ?MR#: ?? [id number] ? : 1960 ?Acct:[id number] ? Age/Sex: 63 / F ?ADM Date: 03/11/24 ? Loc: HO.MAMMO ? Attending Dr: Nae Whipple MD ? Ordering Physician: Nae Whipple ?Results: 2Benign F ?? indings ? Date of Service: 03/11/24 ?Follow Up: 1 Year From Orig ?? inal Mammogram ? Procedure(s): MM tomosynthesis screening BI ?? Accession Number(s): [id number] ? cc: Nae Whipple ? EXAMINATION: ?? MM SCREENING DIGITAL BREAST TOMOSYNTHESIS, BILATERAL ? CLINICAL INFORMATION: ? Screening. Asymptomatic. ? COMPARISON: ?? Mammography: This study is compared with prior exams dating back to ?? 2020. ? TECHNIQUE: ?? Digital breast tomosynthesis is performed in both the craniocaudal and ?? mediolateral oblique views along with computer-aided detection (CAD). ?? Synthesized 2D images are generated from the tomosynthesis. ? FINDINGS: ?? There are scattered areas of fibroglandular density (ACR BI-RADS breast ?? composition Category b). ? There are no significant masses, abnormal calcifications, or other ?? abnormalities. ? There is a biopsy tissue marker in the right breast. ? MM/MM tomosynthesis screening BI ?? IMPRESSION: ?? No mammographic evidence of malignancy. ? ASSESSMENT: ? BI-RADS BI-RADS 2 - Benign Findings ? RECOMMENDATION: ?? Routine annual mammography screening. ? 1 year F/U ? This examination should not preclude the clinical evaluation of a ?? suspicious palpable abnormality. ? This patient's information was entered into a reminder system with a ?? target due date for their next mammogram. ? Dictated By: ?Karin Garland MD ? Signed By: ?<Electronically signed by Karin Garland MD in OV> ? 04/10/09 0515 ? DD/ 1028 ? TD/TT: ? Safety And Health Consultant: ? Procedure Note Donjennaspencermarinter, Image - 04/10/2024 [facility] [address] [place] [address] Mammography Report Signed Patient: Sil Salcedo GMR#: [id number] : 2Acct:[id number] Age/Sex: 63 / FADM Date: 03/11/24 Loc: HO.MAMMO Attending Dr: Nae Whipple MD Ordering Physician: Lor Whippleults: 2Benign F indings Date of Service: 03/11/24Follow Up: 1 Year From Orig inal Mammogram Procedure(s): MM tomosynthesis screening BI Accession Number(s): [id number] cc: Nae Whipple EXAMINATION: MM SCREENING DIGITAL BREAST TOMOSYNTHESIS, BILATERAL CLINICAL INFORMATION: Screening. Asymptomatic. COMPARISON: Mammography: This study is compared with prior exams dating back to 2020. TECHNIQUE: Digital breast tomosynthesis is performed in both the craniocaudal and mediolateral oblique views along with computer-aided detection (CAD). Synthesized 2D images are generated from the tomosynthesis. FINDINGS: There are scattered areas of fibroglandular density (ACR BI-RADS breast composition Category b). There are no significant masses, abnormal calcifications, or other abnormalities. There is a biopsy tissue marker in the right breast. MM/MM tomosynthesis screening BI IMPRESSION: No mammographic evidence of malignancy. ASSESSMENT: BI-RADS BI-RADS 2 - Benign Findings RECOMMENDATION: Routine annual mammography screening. 1 year F/U This examination should not preclude the clinical evaluation of a suspicious palpable abnormality. This patient's information was entered into a reminder system with a target due date for their next mammogram. Dictated By: Karin Garland MD Signed By: <Electronically signed by Karin Garland MD in OV> 04/10/24 0815 DD/ 1028 TD/TT: Safety And Health Consultant: Nae Whipple MD IMG BI PROCEDURES Final Result * (ABNORMAL) LIPID PANEL, STANDARD (05/25/2022 9:53 AM EDT) Chol/HDLC Ratio 3.6 <5.0 (calc) [facility] Cholesterol, Total 231(H) <200 mg/dL [facility] HDL Cholesterol 64 > OR = 50 mg/dL [facility] LDL Cholesterol 140(H) mg/dL (calc) [facility] Comment: Reference range: <100 ?? Desirable range <100 mg/dL for primary prevention; ?? <70 mg/dL for patients with CHD or diabetic patients ?? with > or = 2 CHD risk factors. ?? LDL-C is now calculated using the Jeramy-Sandy ?? calculation, which is a validated novel method providing ?? better accuracy than the Friedewald equation in the ?? estimation of LDL-C. ?? Jeramy LE et al. JENN. 2013;310(19): 4153-5196 ?? (http://education.Nduo.cn.Lottay/faq/KNE972) Non-HDL Cholesterol 167(H) <130 mg/dL (calc) [facility] Comment: For patients with diabetes plus 1 major ASCVD risk ?? factor, treating to a non-HDL-C goal of <100 mg/dL ?? (LDL-C of <70 mg/dL) is considered a therapeutic ?? option. Triglycerides 138 <150 mg/dL [facility] 05/25/2022 9:53 AM EDT Nae Whipple MD LAB BLOOD ORDERABLES Final Res ult [facility] [address] [place] [address], * Colonoscopy (07/01/2014) Colonoscopy Normal Normal Narrative Sarahi Hernandez - 07/01/2014 Recommended 10 year follow up ([facility]) Historical Provider MD HEALTH MAINTENANCE Final Result from Last 3 Months or Most Recently Relevant to Health Maintenance Insurance [facility] C3 DENTAL-[facility] MEDICAID STAND ADULT Care Teams Manager Transportation Relationship Specialty Start Date End Date Nae Whipple MD [address] [place] [phone] PCP - General Family Medicine 07/29/20 Yasmeen Ovalle Training RepresentativeDrum Printer 10/01/24
--- OUTSIDE RECORDS SUMMARY | 2024-11-25 09:34 | XMS_ITS | Encounter Summary ---
Author Organization [employer] Address [address] [facility] [address] [place] [address] Care Team Providers Care Blankmaker Name Role Phone Nae Whipple MD Primary Care Provider [phone] Encounter Details Date Type Department Care Team ([facility] Contact Info) Description 11/04/2024 Telephone [facility] MED & PEDS [address] [place], [place] [phone] Nae Whipple MD [address] [place] [address] Social History Tobacco Use Types Packs/Day Years [...] encounter Miscellaneous Notes * Telephone Encounter - Marlyn Cook RN - 11/04/2024 2:05 PM EST [facility] requesting a status on walker requested last March. Apparently DME was generated and med supply delivered walker but left it in wrong apartment and is wondering if a new request can be sent to a different vendor. documented in this encounter Plan of Treatment Upcoming Encounters Date Type Department Care Team (Late st Contact Info) Description 12/16/2024 1:00 PM EDT Office Visit [facility] ADULT DENTAL [address] [place] [address] Beatriz Cardenas 03/03/2025 10:30 AM EDT Office Visit [facility] OPTOMETRY [address] [place] [address] Shanda Cuenca, EMILY [address] [place] [address] documented as of this encounter Visit Diagnoses Not on filedocumented in this encounter Additional Health Concerns Assessment Noted Time PHQ-9 Depression Total Score: 8 07/06/20 24 10:22 AM EDT documented as of this encounter Care Teams Blankmaker Relationship Specialty Start Date End Date Nae Whipple MD [address] [place] [address] PCP - General Family Medicine 07/29/20 Yasmeen Ovalle Resident ManagerTrainer 10/01/24 documented as of this encounter
--- OUTSIDE RECORDS SUMMARY | 2024-11-25 09:34 | XMS_ITS | Encounter Summary ---
Author Organization [employer] Address [address] [facility] [address] [place] [address] Care Team Providers Care Welder Helper Name Role Phone Nae Whipple MD Primary Care Provider [phone] Encounter Details Date Type Department Care Team (Late Contact Info) Description 05/16/2023 Abstract [facility] MEDICINE [address] [place], [place] [phone] Nae Whipple MD [address] [place] [address] Social History Tobacco Use Types Packs/Day Years Used Date Smoking Tobacco: Never Passive Smoke Exposure: Never Smokeless Tobacco: Never Alcohol Use Standard Drinks/Week Comments Never 0 (1 standard drink = 0.6 oz pur e alcohol) Depression Answer Date Recorded Patient Health Questionnaire-2 Score 2 08/31/2022 Comments Unknown Sex and Gender Information Value Date Recorded Sex Assigned at Female 07/16/2022 10:22 AM EDT Legal Sex Female 10:22 AM EDT Gender Identity Female 07/16/2022 10:22 AM EDT Sexual Orientation Choose not to disclose 2021 10:22 AM EDT documented as of this encounter Plan of Treatment Upcoming Encounters Date Type Department Care Team (Late Contact Info) Description 12/16/2024 1:00 PM EDT Office Visit [facility] ADULT DENTAL [address] [place], [place] [phone] Beatriz Cardenas 03/03/2025 10:30 AM EDT Office Visit [facility] OPTOMETRY [address] [place], [place] [phone] Shanda Cuenca, OD [address] [place] [address] documented as of this encounter Procedures Procedure Name Priority Date/Time Associated Diagnosis Comments COLONOSCOPY Routine 07/01/2014 documented in this encounter Results * Colonoscopy (07/01/2014) Colonoscopy Normal Normal Narrative Sarahi Hernandez - 07/01/2014 Recommended 10 year follow up ([facility]) Historical Provider HEALTH MAINTENANCE Final Result documented in this encounter Visit Diagnoses Not on filedocumented in this encounter Care Teams Welder Helper Relationship Specialty Start Date End Date Nae Whipple MD [address] [place] [address] PCP - General Family Medicine 07/29/20 Yasmeen Ovalle Subwarehouse SupervisorLand Leveler 10/01/24 documented as of this encounter
--- OUTSIDE RECORDS SUMMARY | 2024-11-25 09:34 | XMS_ITS | Encounter Summary ---
Author Organization [employer] Address [address] [facility] [address] [place] [address] Care Team Providers Care Manual Training Teacher Name Role Phone Nae Whipple MD Primary Care Provider [phone] Encounter Details Date Type Department Care Team (Latest Contact Info) Description 02/13/2019 Abstract [facility] Dental, Provider, DDS Social History Tobacco Use Types Packs/Day Years [...] 1:00 PM EDT Office Visit [facility] ADULT DENTAL [address] [place] [address] Beatriz Cardenas 03/03/2025 10:30 AM EDT Office Visit [facility] OPTOMETRY [address] [place] [address] Shanda Cuenca, OD [address] [place] [address] documented as of this encounter Visit Diagnoses Not on filedocumented in this encounter Care Teams Manual Training Teacher Relationship Specialty Start Date End Date Nae Whipple MD [address] [place] [address] PCP - General Family Medicine 07/29/20 Yasmeen Ovalle Liberal [employer] ChairMotor Hotel Manager 10/01/24 documented as of this encounter
--- OUTSIDE RECORDS SUMMARY | 2024-11-25 09:34 | XMS_ITS | Encounter Summary ---
Author Organization [employer] Address [address] [facility] 7 [place] [address] Care Team Providers Care Regeneration Operator Name Role Phone Nae Whipple MD Primary Care Provider [phone] Reason for Visit * Reason Onset Date Comments Housing 11/26/2023 Encounter Details Date Type Department Care Team ([facility] st Contact Info) Description 11/26/2023 Telephone [facility] MEDICINE [address] [place], [place] [phone] Nae Whipple MD [address] [place], [place] [phone] Housing Social History Tobacco Use Types Packs/Day Years [...] encounter Miscellaneous Notes * Telephone Encounter - Lay Matheus - 11/27/2023 10:01 AM EDT Tc from pt calling in regards to message above. States was advised she has until today (11/26) and tomorrow (11/27) to submit documentation for apartment or will have a possibility being homeless due to telling current landlord/office she will be moving. * Telephone Encounter - Jacey Merritt - 11/26/2023 12:43 PM EDT Tc from pt requesting a status on housing document that were fax over a month ago. Pt states she needs them urgently due to housing and being next up in line for an apartment, informs that she needs to submit documentation on 11/29/23 and that HIM advised document were handed to provider. Please contact pt @ [phone] Z[place]ian Speaker documented in this encounter Plan of Treatment Upcoming Encounters Date Type Department Care Team (Late st Contact Info) Description 12/16/2024 1:00 PM EDT Office Visit [facility] ADULT DENTAL [address] [place] [address] Beatriz Cardenas 03/03/2025 10:30 AM EDT Office Visit [facility] OPTOMETRY [address] [place], [place] [phone] Shanda Cuenca, OD [address] [place], [place] [phone] documented as of this encounter Visit Diagnoses Not on filedocumented in this encounter Care Teams Regeneration Operator Relationship Specialty Start Date End Date Nae Whipple MD [address] [place] [address] PCP - General Family Medicine 07/29/20 Yasmeen Ovalle Mannequin RefinisherDirector Of Online Merchandising 10/01/24 documented as of this encounter
== END 2024-11-25 08:58 | disposition home or self-care (01) ==
LOC: HO.XRAY 08:57
PROVIDERS: PCP General Practice; Visit Provider Nurse Practitioner
DX: K21.9 Gastro-esophageal reflux disease without esophagitis (principal); K80.20 Calculus of gallbladder without cholecystitis without obstruction
CPT/HCPCS: 74221

== ENCOUNTER → 2024-11-25 08:59 | Outpatient (BNV) | payer MEDICAID, SELFPAY | PROVIDERS: PCP General Practice; Visit Provider Radiology Diagnostic Radiology | DX: K22.4 Dyskinesia of esophagus (principal) | CPT/HCPCS: 74221 ==

== ENCOUNTER 2025-01-13 11:00 | Outpatient (AMB) | payer MEDICAID, SELFPAY ==
--- NOTE | 2025-01-13 11:13 | MHC.OFFVIS ---
Vital Signs 01/13/25 11:14 Height 5 ft 3 in Weight 151 lb 10.848 oz BMI 26.9 BP 138/75 Blood Pressure Location Lt brachial Position Sitting Pulse 92 Pulse Source Pulse Oximeter Pulse Oximetry (%) 97 Oxygen Delivery Method Room Air Intake Visit Reasons: 4 months follow up GERD Intake Note: Pt presents to the office today for a 4 month follow up for GERD. Pt states she isnt experiencing as much acid reflux since starting the medication. Accompanied by: son in law Allergies hydroxychloroquine [From PLAQUENIL] Allergy (Unknown, Verified 01/13/25 11:16) AFFECTED VISION HPI HPI 4 months follow up GERD: Details: Assessment & Plan (1) GERD (gastroesophageal reflux disease): Code(s): K21.9 - Gastro-esophageal reflux disease without esophagitis Category: Medical (2) Gallstones: Code(s): K80.20 - Calculus of gallbladder without cholecystitis without obstruction Category: Medical Plan [place] # son translates per pt request. She has been suffering GERD and HB for 3 years. she was unaware of her gallstones. I educated her on avoiding fatty foods. She has mild epigastric pain but no other bloating or pain. No CIC or diarrhea. She was on omeprazole of unknown dose over a year ago that was not helpful. I will start her on pantorpazole, get an HP breath test, HIDA scan and barium swallow. She is due for a screening colonoscopy, but we will discuss this at a later date anbd see if EGD is needed. ROV 8 weeks Orders: Orders H Pylori Breath Test Today K21.9 - Gastro-esophageal reflux disease without esophagitis, K80.20 - Calculus of gallbladder without cholecystitis without obstruction FL barium swallow Today K21.9 - Gastro-esophageal reflux disease without esophagitis, K80.20 - Calculus of gallbladder without cholecystitis without obstruction NM hepatobiliary w pharm Today K21.9 - Gastro-esophageal reflux disease without esophagitis, K80.20 - Calculus of gallbladder without cholecystitis without obstruction Comprehensive Met. Panel Today K21.9 - Gastro-esophageal reflux disease without esophagitis, K80.20 - Calculus of gallbladder without cholecystitis without obstruction Medications: New pantoprazole (Protonix) 40 mg PO DAILY 30 tabs 6RF 30 days K21.9 - Gastro-esophageal reflux disease without esophagitis LABS: Laboratory Tests 09/03/24 09/03/24 12:37 13:12 Estimated GFR > 60 Total Bilirubin 0.5 AST 20 ALT 26 Alkaline Phosphatase 80 H. pylori Breath Test Positive HIDA 09/2024 FINDINGS: The liver is normal size with normal hepatic uptake. No focal lesion seen. There is prompt visualization of CBD by 15 minutes. Small bowel is visualized by 18 to 19 minutes. Gallbladder is visualized by 41 minutes. Post-CCK gallbladder ejection fraction at 10 minutes is 59%. Ejection fraction at 20 minutes is 81% Ejection fraction at 30 minutes is 90%. NM/NM hepatobiliary w pharm IMPRESSION: Normal hepatic uptake. No focal lesion. Patent cystic duct and CBD. Normal gallbladder ejection fraction post CCK measuring 90% at 30 minutes GES FINDINGS: UPPER GI SERIES: Lateral cine images of the oropharynx and hypopharynx demonstrate normal swallow mechanism with normal epiglottic inversion and soft palate elevation. No tracheal penetration, glottic or subglottic aspiration identified. No nasopharyngeal reflux present. Hypopharyngeal structures appear normal without evidence of mass or diverticulum. There was mild cricopharyngeal achalasia. Dual and single contrast images of the esophagus demonstrate normal caliber, contour, and mucosal pattern. No evidence of stricture, mass, or ulcerations identified. Esophageal peristalsis was moderately disordered. No evidence of hiatus hernia identified. GE junction demonstrated mild to moderate smooth short segment narrowing. No significant gastroesophageal reflux was seen during the course of the examination and on reflux views. Dual contrast and single contrast images of the stomach demonstrated normal contour. There was diffuse mild thickening of the areae gastricae. Normal gastric rugal fold pattern. No discrete ulceration or mass. Tiny filling defects in the fundus are likely electroplating sales representative of small hyperplastic polyps. Contrast freely passed into the gastric antrum and duodenal bulb without delay. Single and air-contrast images of the duodenal bulb demonstrate no abnormality. The duodenal sweep has a normal appearance, course, and mucosal fold appearance. TODAY'S VISIT [place] #family member translates per pt request I tx'ed her with quadruple therapy. She completed the therapy in October and she is feeling much better she still has some GERD but not as bad as before and no abd pain. She tolerated the treatment well. We will retest for eradication. ROV 3 mos. [facility] Medical History (Updated 01/13/25 @ 11:32 by MARLEY Cantu) Abnormal liver diagnostic imaging Contracture of left knee History of revision of total replacement of left knee joint Depression Hyperlipidemia HTN (hypertension) GERD (gastroesophageal reflux disease) [place] Surgical History H/O colonoscopy History of partial hysterectomy Hx of section History of knee replacement procedure of left knee (~1997) Family History Mother Hypertension Father No problems noted. Maternal Aunt Cancer Social History Household Members: None Housing: Apartment Alcohol intake: current Alcohol intake frequency: holidays/special occasions only Patient Tobacco Use Status: Never used Tobacco Review of Systems Const Denies fatigue, Denies fever(s), Denies night sweats, Denies poor appetite and Denies weight loss Eyes Details: glass Reports requires corrective lenses ENT Reports Normal hearing present, Denies dental pain, Denies dysphagia, Denies hearing loss, Denies mouth pain, Denies odynophagia, Denies throat swelling, Denies tongue swelling and Reports other (Dentition adequate) Card Reports no additional complaints Resp Reports no additional complaints GI Details: Denies abdominal pain, Denies melena, Denies bloating, Denies hematochezia, Denies constipation, Denies GI cramping, Denies dysphagia, Denies excessive flatus, Denies early satiety, Reports heartburn, Denies diarrhea, Denies nausea, Denies odynophagia, Denies vomiting and Denies hematemesis Skin/Breast Denies pruritus, Denies lesions, Denies rash and Denies jaundice Neuro Reports Normal hearing present and Denies Abnormal speech present Endo Denies fatigue Aller/Immun Denies throat swelling and Denies tongue swelling Physical Exam Vital Signs: Last Vital Signs Pulse 92 01/13/25 11:14 BP 138/75 01/13/25 11:14 Pulse Ox 97 01/13/25 11:14 Oxygen Delivery Method Room Air 01/13/25 11:14 BMI result Body Mass Index 26.9 Const General: cooperative, no acute distress, well developed and well groomed Nutritional Appearance: average body habitus and well nourished Orientation/consciousness: oriented to person, oriented to place and oriented to time Limitations: language barrier and ambulation with cane HEENT Head: Yes normocephalic and Yes atraumatic Eyes General: appearance normal, both eyes and all related structures Pupils: Equal, round and reactive pupils present Neck Neck: Yes normal visual inspection and Yes no lymphadenopathy Thyroid: Thyroid normal Resp Effort & Inspection: normal respiratory effort and able to speak in complete sentences Auscultation: clear to auscultation bilaterally Cardio Rate: regular rate Rhythm: regular rhythm Heart sounds: Normal, physiologic split S2 sound present Peripheral pulses: radial pulses present and posterior tibial pulses present GI Inspection: No distended and No Abdominal panniculus present Palpation (GI): Soft to palpation, nontender, no guarding, not rigid and No hepatosplenomegaly present Percussion: Yes normal to percussion Auscultation: normal bowel sounds Rectal Exam - Female: deferred Skin General skin exam: no rashes or lesions noted, turgor normal, skin not dry, no jaundice, No spider nevi and no striae Rashes: no rashes Nails: normal Neuro General: oriented to person, oriented to place and oriented to time Cranial nerves: Yes Equal, round and reactive pupils present and Yes Normal hearing present Speech: No Abnormal speech present Extrem General: Yes normal to inspection, No clubbing, No cyanosis and No edema Psych Appearance: grossly normal and well kempt Mental Status: mental status grossly normal Speech and movement: Normal speech and movement present Affect: normal affect Attitude: cooperative Thought process: Normal thought process present and not confabulating Thought content: Normal thought content present Insight: Fair insight present (Psych) Judgement: Fair judgement present (Psych) Results Reviewed Results Reviewed: Laboratory Tests 09/03/24 09/03/24 12:37 13:12 Estimated GFR > 60 Total Bilirubin 0.5 AST 20 ALT 26 Alkaline Phosphatase 80 H. pylori Breath Test Positive HIDA 09/2024 FINDINGS: The liver is normal size with normal hepatic uptake. No focal lesion seen. There is prompt visualization of CBD by 15 minutes. Small bowel is visualized by 18 to 19 minutes. Gallbladder is visualized by 41 minutes. Post-CCK gallbladder ejection fraction at 10 minutes is 59%. Ejection fraction at 20 minutes is 81% Ejection fraction at 30 minutes is 90%. NM/NM hepatobiliary w pharm IMPRESSION: Normal hepatic uptake. No focal lesion. Patent cystic duct and CBD. Normal gallbladder ejection fraction post CCK measuring 90% at 30 minutes GES FINDINGS: UPPER GI SERIES: Lateral cine images of the oropharynx and hypopharynx demonstrate normal swallow mechanism with normal epiglottic inversion and soft palate elevation. No tracheal penetration, glottic or subglottic aspiration identified. No nasopharyngeal reflux present. Hypopharyngeal structures appear normal without evidence of mass or diverticulum. There was mild cricopharyngeal achalasia. Dual and single contrast images of the esophagus demonstrate normal caliber, contour, and mucosal pattern. No evidence of stricture, mass, or ulcerations identified. Esophageal peristalsis was moderately disordered. No evidence of hiatus hernia identified. GE junction demonstrated mild to moderate smooth short segment narrowing. No significant gastroesophageal reflux was seen during the course of the examination and on reflux views. Dual contrast and single contrast images of the stomach demonstrated normal contour. There was diffuse mild thickening of the areae gastricae. Normal gastric rugal fold pattern. No discrete ulceration or mass. Tiny filling defects in the fundus are likely electroplating sales representative of small hyperplastic polyps. Contrast freely passed into the gastric antrum and duodenal bulb without delay. Single and air-contrast images of the duodenal bulb demonstrate no abnormality. The duodenal sweep has a normal appearance, course, and mucosal fold appearance. Assessment & Plan Assessment & Plan (1) H. pylori infection: Comment: 10/2024 treated quadruple therapy Code(s): A04.8 - Other specified bacterial intestinal infections Category: Medical (2) Gallstones: Comment: HIDA scan 09/2024 does not show these to be problematic at this Code(s): K80.20 - Calculus of gallbladder without cholecystitis without obstruction Category: Medical (3) GERD (gastroesophageal reflux disease): Code(s): K21.9 - Gastro-esophageal reflux disease without esophagitis Category: Medical Plan [place] #family member translates per pt request I tx'ed her with quadruple therapy. She completed the therapy in October and she is feeling much better she still has some GERD but not as bad as before and no abd pain. She tolerated the treatment well. We will retest for eradication. ROV 3 mos. Coding Level of Care Code Est Pt Level 3 (98390) Diagnoses H. pylori infection A04.8 Gallstones K80.20 GERD (gastroesophageal reflux disease) K21.9
[2025-01-13 11:14] VITALS: BP 138/75; PULSE 92; O2SAT 97; BMI 26.9
--- OUTSIDE RECORDS SUMMARY | 2025-01-13 12:36 | XMS_ITS | Clinical Summary ---
Author Organization [employer] Address 75 [facility] 7t [place] [address] Care Team Providers Care Blueprint Reproducer Name Role Phone Nae Whipple MD Primary Care Provider [phone] Allergies Active Allergy Reactions Criticality Noted Date [...] EST): Increase oxybutynin to 10mg Re-refer to [facility] Post-COVID chronic dyspnea 08/28/2023 Assessment & [...] Encounters Date Type Department Care Team Description 12/22/2024 Telephone [facility] [address] [place] [address] Nae Whipple MD Durable Medical Equipment (DME Request: Rollator Walker) 12/18/2024 Telephone [facility] [address] [place] [address] Marian Peralta RN Paperwork/Forms 12/16/2024 1:00 PM EDT Office Visit [facility] ADULT DENTAL [address] [place] [address] Beatriz Cardenas 11/27/2024 Population Health Risk Score [facility] Department [address] [facility] [address] [place] [address] [place] [address] Provider, Population Health Generic 11/25/2024 Orders Only [facility] External Provider, [employer] 11/04/2024 Telephone [facility] [address] [place] [address] Nae Whipple MD 10/15/2024 2:30 PM EST Office Visit [facility] ADULT DENTAL [address] [place] [address] Netta Gustafson DDS Encounter for dental examination (Primary Dx); Dental calculus; Periodontal disease; Dental plaque from Last 3 Months Immunizations Name Administration [...] your housing situation today? I have deloris josue 06/26/[address] you li [...] Care Team (Late st Contact Info) Description 03/03/2025 10:30 AM EDT Office Visit [facility] OPTOMETRY [address] [place] [address] Bang, Shanda, OD [address] [place] [address] Health Maintenance Due Date Last Done Comments [...] Td or Tdap) 02/14/2022 02/15/2012 COVID-19 Vaccine (3 - season) 2024 02/02/2021, 01/05/2021 Colonoscopy 07/01/2024 07/01/2014 [...] Procedure Name Priority Date/Time Associated Diagnosis Comments NO CHARGE VISIT Routine 12/16/2024 1:00 PM EDT FL ESOPHAGUS BARIUM SWALLOW WITH AIR Routine 11/25/2024 8:59 AM EDT CASE PRESENTATION, DETAILED AND EXTENSIVE TREATMENT PLANNING [...] - RESIN Routine 10/15/2024 12:00 AM EST BI MAMMOGRAM SCREENING TOMOSYNTHESIS BILATERAL Routine 03/11/2024 10:28 AM EDT LIPID PANEL, STANDARD Routine 05/25/2022 9:53 AM EDT PROPHYLAXIS - ADULT Routine 02/13/2019 1 2:00 AM EDT HM COLONOSCOPY Routine 07/01/2014 from Last 3 Months or Most Recently Relevant to Health Maintenance Results * FL Esophagus Barium Swallow w/Air (11/25/2024 8:59 AM EDT) Anatomical Region Laterality Modality Head, Neck Radiographic Cathy ging 11/25/2024 8:59 AM EDT Narrative 11/25/2024 10:05 AM EDT ? [employer] ?[address] ?[place] [address] ? Fluoroscopy Report ? Signed ? Patient: Sil Salcedo ?MR#: ?? [id number] ? : 1960 ?Acct:[id number] ? Age/Sex: 63 / F ?ADM Date: 11/25/24 ? Loc: HO.XRAY ? Attending Dr: Adelaida Davila ANP-C ? Ordering Physician: Adelaida Davila-C ?? Date of Service: 11/25/24 ?? Procedure(s): FL barium swallow with air ?? Accession Number(s): [id number] ? cc: Adelaida Davila ANP-C; Nae Whipple ? EXAMINATION: ?? XR FLUOROSCOPY ESOPHAGRAM ? CLINICAL INFORMATION: ?? Gastroesophageal reflux disease without esophagitis. Patient ?? complaining of food getting stuck . ? COMPARISON: ?? None ? TECHNIQUE: ?? Fluoroscopic air contrast upper GI examination was performed utilizing ?? standard techniques with thin and thick barium and effervescent ?? granules. Numerous spot images were obtained. Several fluoroscopic ?? image hold cine sequences were also obtained. ?? Etl Application Developer was present for the examination. ? FINDINGS: ? UPPER GI SERIES: ?? Lateral cine images of the oropharynx and hypopharynx demonstrate ?? normal swallow mechanism with normal epiglottic inversion and soft ?? palate elevation. No tracheal penetration, glottic or subglottic ?? aspiration identified. No nasopharyngeal reflux present. Hypopharyngeal ?? structures appear normal without evidence of mass or diverticulum. ?? There was mild cricopharyngeal achalasia. ? Dual and single contrast images of the esophagus demonstrate normal ?? caliber, contour, and mucosal pattern. No evidence of stricture, mass, ?? or ulcerations identified. Esophageal peristalsis was moderately ?? disordered. ? No evidence of hiatus hernia identified. GE junction demonstrated mild ?? to moderate smooth short segment narrowing. No significant ?? gastroesophageal reflux was seen during the course of the examination ?? and on reflux views. ? Dual contrast and single contrast images of the stomach demonstrated ?? normal contour. There was diffuse mild thickening of the areae ?? gastricae. Normal gastric rugal fold pattern. No discrete ulceration or ?? mass. Tiny filling defects in the fundus are likely delivery representative of ?? small hyperplastic polyps. Contrast freely passed into the gastric ?? antrum and duodenal bulb without delay. ? Single and air-contrast images of the duodenal bulb demonstrate no ?? abnormality. The duodenal sweep has a normal appearance, course, and ?? mucosal fold appearance. ? FLUOROSCOPY TIME: ?? 2 minutes, 31 seconds. ? Number of Spot Images:11 ?? Number of cines obtained: 13 ? DOSE AREA PRODUCT: ?? 2337 uGy-m2 (microgray-meter squared) ? FL/FL barium swallow with air ?? IMPRESSION: ?? 1. Mild cricopharyngeal achalasia. ?? 2. Moderately disordered esophageal peristalsis. ?? 3. Mild to moderate narrowing at the GE junction, appearance suggestive ?? of mild achalasia. ?? 4. Mild thickening of the gastric areae gastricae, in keeping with mild ?? gastritis. Probable tiny hyperplastic polyps in the fundus. ?? 5. No definite gastroesophageal reflux identified during the course of ?? the exam. ? Electronically signed by: ??Damien Whitley MD ??11/25/2024 10:03 AM EDT RP ? Dictated By: ?Damien Whitley MD ? Signed By: ?<Electronically signed by Damien Whitley MD in OV> ?11/25/24 1003 ? DD/ 0859 ? TD/TT: 11/25/24 0935 ? Solid Tire Finisher: ? Procedure Note Doneugenio, Image - 11/25/[address] [address] Fluoroscopy Report Signed Patient: Sil Salcedo GMR#: [id number] : 1960cct:[id number] Age/Sex: 63 / FADM Date: 11/25/24 Loc: [facility] Attending Dr: Adelaida ROACH Ordering Physician: Adelaida Davila Date of Service: 11/25/24 Procedure(s): FL barium swallow with air Accession Number(s): [id number] cc: Adelaida Davila; Nae Whipple EXAMINATION: XR FLUOROSCOPY ESOPHAGRAM CLINICAL INFORMATION: Gastroesophageal reflux disease without esophagitis. Patient complaining of food getting stuck . COMPARISON: None TECHNIQUE: Fluoroscopic air contrast upper GI examination was performed utilizing standard techniques with thin and thick barium and effervescent granules. Numerous spot images were obtained. Several fluoroscopic image hold cine sequences were also obtained. Etl Application Developer was present for the examination. FINDINGS: UPPER GI SERIES: Lateral cine images of the oropharynx and hypopharynx demonstrate normal swallow mechanism with normal epiglottic inversion and soft palate elevation. No tracheal penetration, glottic or subglottic aspiration identified. No nasopharyngeal reflux present. Hypopharyngeal structures appear normal without evidence of mass or diverticulum. There was mild cricopharyngeal achalasia. Dual and single contrast images of the esophagus demonstrate normal caliber, contour, and mucosal pattern. No evidence of stricture, mass, or ulcerations identified. Esophageal peristalsis was moderately disordered. No evidence of hiatus hernia identified. GE junction demonstrated mild to moderate smooth short segment narrowing. No significant gastroesophageal reflux was seen during the course of the examination and on reflux views. Dual contrast and single contrast images of the stomach demonstrated normal contour. There was diffuse mild thickening of the areae gastricae. Normal gastric rugal fold pattern. No discrete ulceration or mass. Tiny filling defects in the fundus are likely delivery representative of small hyperplastic polyps. Contrast freely passed into the gastric antrum and duodenal bulb without delay. Single and air-contrast images of the duodenal bulb demonstrate no abnormality. The duodenal sweep has a normal appearance, course, and mucosal fold appearance. FLUOROSCOPY TIME: 2 minutes, 31 seconds. Number of Spot Images:11 Number of cines obtained: 13 DOSE AREA PRODUCT: 2337 uGy-m2 (microgray-meter squared) FL/FL barium swallow with air IMPRESSION: 1. Mild cricopharyngeal achalasia. 2. Moderately disordered esophageal peristalsis. 3. Mild to moderate narrowing at the GE junction, appearance suggestive of mild achalasia. 4. Mild thickening of the gastric areae gastricae, in keeping with mild gastritis. Probable tiny hyperplastic polyps in the fundus. 5. No definite gastroesophageal reflux identified during the course of the exam. Electronically signed by: Damien Whitley MD 11/25/2024 10:03 AM EDT Dictated By: Damien Whitley MD Signed By: <Electronically signed by Damien Whitley MD in OV> 11/25/24 1003 DD/ 0859 TD/TT: 11/25/24 0935 Solid Tire Finisher: [facility] External Provider IMG FLU OROSCOPY PROCEDURES Final Result * BI Mammogram Screening Tomosynthesis Bilateral (03/11/2024 10:28 AM EDT) Anatomical Region Laterality Modality Breast Bilateral Mammography 03/11/2024 10:2 8 AM EDT Narrative 04/10/2024 8:19 AM EDT ? [facility] ? [address] ?[place] [address] ? Mammography Report ? Signed ? Patient: Sil Salcedo ?MR#: ?? [id number] ? : 1960 ?Acct:[id number] ? Age/Sex: 63 / F ?ADM Date: /26/24 ? Loc: HO.MAMMO ? Attending Dr: Nae Whipple MD ? Ordering Physician: Nae Whipple ?Results: 2Benign F ?? indings ? Date of Service: 03/11/24 ?Follow Up: 1 Year From Orig ?? inal Mammogram ? Procedure(s): MM tomosynthesis screening BI ?? Accession Number(s): [id number] ? cc: Nae Whipple ? EXAMINATION: ?? [...] by Karin Garland MD in OV> ? 04/10/ 0815 ? DD/ 1028 ? TD/TT: ? Solid Tire Finisher: ? Procedure Note Donautumnter, Image - 04/10/2024 [facility] [address] [place] [address] Mammography Report Signed Patient: Sil Salcedo GMR#: [id number] : 2Acct:[id number] Age/Sex: 63 / FADM Date: 03/11/24 Loc: HO.MAMMO Attending Dr: Nae Whipple MD Ordering Physician: Lor Whippleults: 2Benign F indings Date of Service: 03/11/24Follow Up: 1 Year From Orig inal Mammogram Procedure(s): MM tomosynthesis screening BI Accession Number(s): [id number] cc: Nae Whipple EXAMINATION: MM SCREENING DIGITAL [...] in OV> 04/10/24 0815 DD/ 1028 TD/TT: Solid Tire Finisher: Nae Whipple MD IMG BI PROCEDURES Final [...] ?? LDL-C is now calculated using the [place] ?? calculation, which is a validated novel method providing ?? better accuracy than the Friedewald equation in the ?? estimation of LDL-C. ?? Jeramy LE et al. JENN. 2013;310(19): 1963-5505 ?? (http://education.[employer]/faq/XHY819) Non-HDL Cholesterol 167(H) <130 mg/dL (calc) [facility] Comment: For patients with diabetes plus 1 major ASCVD risk ?? factor, treating to a non-HDL-C goal of <100 mg/dL ?? (LDL-C of <70 mg/dL) is considered a therapeutic ?? option. Triglycerides 138 <150 mg/dL [facility] 05/25/2022 9:53 AM EDT Nae Whipple MD LAB BLOOD ORDERABLES Final Res ult [facility] [address] [place] [address], [place] * Hm Colonoscopy (07/01/2014) Colonoscopy Normal Normal Narrative Sarahi Hernandez - 07/01/2014 Recommended 10 year follow up ([facility]) us Historical Provider HEALTH MAINTENANCE Final Result from Last 3 Months or Most Recently Relevant to Health Maintenance Insurance [facility] C3 DENTAL-[facility] MEDICAID STAND ADULT Care Teams Blueprint Reproducer Relationship Specialty Start Date End Date Nae Whipple MD [address] [place] [address] PCP - General Family Medicine 07/29/20 Yasmeen Ovalle Drawing Box TenderPetroleum Geology Faculty Member 10/01/24
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
--- OUTSIDE RECORDS SUMMARY | 2025-01-13 12:36 | XMS_ITS | Encounter Summary ---
Author Organization [employer] Address 75 [facility] 7 [place] [address] Care Team Providers Care Avionics Mechanic Name Role Phone Nae Whipple MD Primary Care Provider [phone] Reason for Visit * Reason Onset Date Comments Status Request 05/12/2024 Encounter Details Date Type Department Care Team ([facility] st Contact Info) Description 05/12/2024 Telephone [facility] MEDICINE [address] [place], [place] [phone] Nae Whipple MD [address] [place], [place] [phone] Status Request Social History Tobacco Use Types [...] EDT Tc from pt requesting status on RECONCILIATION MANAGER form awaiting to be signed. Please contact pt at [phone]. (Greenlandic Speaker) documented in this encounter Plan of Treatment Upcoming Encounters Date Type Department Care Team (Late st Contact Info) Description 03/03/2025 10:30 AM EDT Office Visit [facility] OPTOMETRY [address] [place] [address] Shanda Cuenca, OD [address] [place] [address] documented as of this encounter Visit Diagnoses Not on filedocumented in this encounter Care Teams Avionics Mechanic Relationship Specialty Start Date End Date Nae Whipple MD [address] [place] [address] PCP - General Family Medicine 07/29/20 Yasmeen Ovalle Financial Aid OfficerAutomotive Services Manager 10/01/24 documented as of this encounter
--- OUTSIDE RECORDS SUMMARY | 2025-01-13 12:36 | XMS_ITS | Clinical Summary ---
Author Organization [facility] [place] [address] Care Team Providers Care Sales Product Specialist Name Role Phone Unavailable Primary Care Provider [...] 12/05/2011 Zoster Vaccines (1 of 2) 12/05/2011 COVID-19 Vaccine ( - 2023-2 5 season) 2024 Influenza Vaccine (Season Ended) 2025 RSV Immunization Adult Patie nts (1 - 1-dose 75+ series) 2036 HIB [...] age to complete this topic Meningococcal B Vaccine Aged Out No l onger eligible based on patient's age to complete [...]
--- OUTSIDE RECORDS SUMMARY | 2025-01-13 12:36 | XMS_ITS | Encounter Summary ---
Author Organization [employer] Address 75 [facility] 7 [place] [address] Care Team Providers Care Police Captain Name Role Phone Nae Whipple MD Primary Care Provider [phone] Encounter Details Date Type Department Care Team ([facility] Contact Info) Description 05/16/2023 Abstract [facility]ICINE [address] [place], [place] [phone] Nae Whipple MD [address] [place] [address] Social History Tobacco Use Types Packs/Day Years [...] Department Care Team (Late Contact Info) Description 03/03/2025 10:30 AM EDT Office Visit [facility] OPTOMETRY [address] [place] [address] Shanda Cuenca, OD [address] [place] [address] documented as of this encounter Procedures Procedure Name Priority Date/Time Associated Diagnosis Comments COLONOSCOPY Routine 07/01/2014 documented in this encounter Results * Colonoscopy (07/01/2014) Colonoscopy Normal Normal Narrative Sarahi Hernandez - 07/01/2014 Recommended 10 year follow up ([facility] Historical Provider HEALTH MAINTENANCE Final Result documented in this encounter Visit Diagnoses Not on filedocumented in this encounter Care Teams Police Captain Relationship Specialty Start Date End Date Nae Whipple MD [address] [place] [address] PCP - General Family Medicine 07/29/20 Yasmeen Ovalle Envelope FolderCopy Technician 10/01/24 documented as of this encounter
--- OUTSIDE RECORDS SUMMARY | 2025-01-13 12:37 | XMS_ITS | Encounter Summary ---
Author Organization [employer] Address [address] [facility] 7 [place] [address] Care Team Providers Care External Auditor Name Role Phone Nae Whipple MD Primary Care Provider [phone] Encounter Details Date Type Department Care Team (Latest Contact Info) Description 02/13/2019 Abstract [facility] CONVERSIONS Dental, Provider, DDS Social History Tobacco [...] 03/03/2025 10:30 AM EDT Office Visit [facility] OPTOMETRY [address] [place] [address] Shanda Cuenca, OD [address] [place] [address] documented as of this encounter Visit Diagnoses Not on filedocumented in this encounter Care Teams External Auditor Relationship Specialty Start Date End Date Nae Whipple MD [address] [place] [address] PCP - General Family Medicine 07/29/20 Yasmeen Ovalle Printing Press Machine OperatorSolar Pv Installer 10/01/24 documented as of this encounter
--- OUTSIDE RECORDS SUMMARY | 2025-01-13 12:37 | XMS_ITS | Encounter Summary ---
Author Organization [employer] Address 75 [facility] 7 [place] [address] Care Team Providers Care Detailer Pharmaceuticals Name Role Phone Nae Whipple MD Primary Care Provider [phone] Reason for Visit * Reason Onset Date Comments Housing 11/26/2023 Encounter Details Date Type Department Care Team ([facility] st Contact Info) Description 11/26/2023 Telephone [facility] MEDICINE [address] [place], [place] [phone] Nae Whipple MD [address] [place], [place] [phone] Housing Social History Tobacco Use Types Packs/Day [...] handed to provider. Please contact pt @ [phone] Panamanian Speaker documented in this encounter Plan of Treatment Upcoming Encounters Date Type Department Care Team (Late st Contact Info) Description 03/03/2025 10:30 AM EDT Office Visit [facility] OPTOMETRY [address] [place] [address] Shanda Cuenca, OD [address] [place] [address] documented as of this encounter Visit Diagnoses Not on filedocumented in this encounter Care Teams Detailer Pharmaceuticals Relationship Specialty Start Date End Date Nae Whipple MD [address] [place] [address] PCP - General Family Medicine 07/29/20 Yasmeen Ovalle Banquet Set Up PersonPurchasing Intern 10/01/24 documented as of this encounter
== END 2025-01-13 11:31 | disposition home or self-care (01) ==
LOC: HO.HGI 11:01
PROVIDERS: PCP General Practice; Visit Provider Nurse Practitioner
DX: A04.8 Other specified bacterial intestinal infections (principal); K80.20 Calculus of gallbladder without cholecystitis without obstruction; K21.9 Gastro-esophageal reflux disease without esophagitis
CPT/HCPCS: 99213

== ENCOUNTER → 2025-01-13 11:00 | Outpatient (BNVA) | payer MEDICAID, SELFPAY | PROVIDERS: PCP General Practice; Visit Provider Nurse Practitioner | DX: K21.9 Gastro-esophageal reflux disease without esophagitis (principal); K80.20 Calculus of gallbladder without cholecystitis without obstruction; A04.8 Other specified bacterial intestinal infections | CPT/HCPCS: 99212 ==

== ENCOUNTER 2025-02-10 09:55 | Outpatient (AMB) | payer MEDICAID, SELFPAY ==
--- NOTE | 2025-02-10 10:13 | A.OFFVIS_ITS ---
Vital Signs 02/10/25 10:14 Height 5 ft 3 in Weight 151 lb 3.794 oz BMI 26.8 BP 120/60 Blood Pressure Location Lt brachial Position Sitting Pulse 68 Pulse Source Monitor Intake Visit Reasons: 6 mth f/up s/p echo- r/s 10/28 Intake Note: 6 mth f/up-echo Finish Rolls Operator Required: No Finish Rolls Operator Services: Finish Rolls Operator Offered & Declined Finish Rolls Operator Name: chaparro/son in law/Italian Accompanied by: Family/Other Allergies hydroxychloroquine [From PLAQUENIL] Allergy (Unknown, Verified 01/13/25 11:16) AFFECTED VISION Medication List - Last Reconciled 02/10/25 by Jose Aguilar MD acetaminophen 500 - 1,000 mg PO Q6H PRN albuterol sulfate 90 mcg/actuation (Ventolin HFA) 2 puffs inhalation Q6H PRN amlodipine 5 mg PO DAILY aspirin 81 mg PO DAILY bismuth subsalicylate (Bismuth) 2 tabs PO QID 14 days calcium carbonate-vitamin D3 600 mg-10 mcg (400 unit) 1 tab PO BID enalapril maleate 20 mg PO DAILY oxybutynin chloride ER 10 mg PO QAM pantoprazole (Protonix) 40 mg PO DAILY 30 days simvastatin 20 mg PO DAILY venlafaxine ER 150 mg PO DAILY HPI Comments Details: 64-year-old female who is referred to us for palpitations and chest discomfort. She has been experiencing chest pain for few months. She describes a pressure- like feeling over her chest along with shortness of breath. These episodes are somewhat random and can happen at rest and with activity too. She also gets palpitations mostly at nighttime and these are quite frequent and happen almost every night. She is a nonsmoker. She has background of hyperlipidemia. 01/13/24: She returns for follow-up. She was referred for Holter monitor which she did 5 day Holter monitor which did not show any arrhythmia. On 2 occasions she had palpitations and was in sinus rhythm. She also had a Lexiscan but unfortunately there was extra cardiac uptake and the study was not interpretable. She has been referred for coronary CTA which she is due to get on February 04. She continues to get some palpitations off and on. She has occasional epigastric and chest discomfort. She continues to walk with a cane since knee surgery. 04/20/2024: She returns for follow-up. She underwent coronary CTA in January 2024. This showed left dominant system with normal left main, minimal plaque in the LAD and no significant plaque in circumflex or RCA. Dilated main pulmonary artery was noted with concern for pulmonary arterial hypertension. Also liver lesion was noted which was felt to be a hemangioma and radiology recommended dedicated ultrasound which was requested. She is complaining of some chest discomfort and saying that this is worse when she is laying down. 02/10/25: She is here for follow-up. She is doing well and has no exertional symptoms. She is walking with a cane due to left knee replacement surgery. Blood pressure well controlled. 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 Maternal Aunt Cancer Social History Household Members: None Housing: Apartment Alcohol intake: current Alcohol intake frequency: holidays/special occasions only Patient Tobacco Use Status: Never used Tobacco Review of Systems Const Denies chills, Denies fatigue, Denies fever(s), Denies frequent falls, Denies weakness, Denies weight gain and Denies weight loss ENT Denies dizziness Card Denies chest pain, Denies leg edema, Denies lightheadedness, Denies palpitations, Denies dyspnea and Denies dyspnea on exertion Resp Denies cough, Denies dyspnea and Denies dyspnea on exertion GI Denies hematochezia Musc Denies abnormal gait, Denies muscle weakness, Denies numbness, Denies radiating pain into limb and Denies tingling Neuro Denies abnormal gait, Denies dizziness, Denies frequent falls, Denies numbness, Denies tingling and Denies weakness Endo Denies fatigue and Denies palpitations Physical Exam Vital Signs: Last Vital Signs Pulse 68 02/10/25 10:14 BP 120/60 02/10/25 10:14 BMI result Body Mass Index 26.8 GENERAL APPEARANCE: in no acute distress, pleasant. NECK: no carotid bruit, no jugular venous distention. SKIN: no suspicious lesions, warm and dry. HEART: no murmurs, regular rate and rhythm. LUNGS: clear to auscultation bilaterally. ABDOMEN: soft, nontender. EXTREMITIES: no edema. PERIPHERAL PULSES: equal. NEUROLOGIC: No gross deficits, AAO X 3 Office Procedures EKG Details: Sinus rhythm 68 beats per minute, normal axis, normal ECG, QTC 446 milliseconds. [id number], Complete Assessment & Plan Assessment & Plan (1) Hyperlipidemia: Code(s): E78.5 - Hyperlipidemia, unspecified Category: Medical (2) HTN (hypertension): Code(s): I10 - Essential (primary) hypertension Category: Medical Plan 64-year-old female here for follow-up. She has background history of chest discomfort and underwent stress testing followed by coronary CTA. Coronary CTA showed minimal disease in the coronary arteries. She is on statin therapy. Denying any exertional symptoms at this point. Blood pressure well controlled. She previously had pulmonary artery dilation noticed on coronary CTA and we did an echocardiogram which did not show any significant pulmonary hypertension and in fact her PA pressures were normal. Normal biventricular function. She will follow up with us once a year. Thank you for allowing me to participate in the care of your patient. Please feel free to contact me if you have any questions. Coding Level of Care Code Est Pt Level 3 (08835) Diagnoses Hyperlipidemia E78.5 HTN (hypertension) I10 CPT Codes EKG - CPT: 93234-[id number], Complete ([id number])
[2025-02-10 10:14] VITALS: BP 120/60; PULSE 68; BMI 26.8
--- OUTSIDE RECORDS SUMMARY | 2025-02-10 10:46 | XMS_ITS | Encounter Summary ---
Author Organization [employer] Address [address] [facility] 7 [place] [address] Care Team Providers Care Purse Seining Hand Name Role Phone Nae Whipple MD Primary Care Provider [phone] Reason for Visit * Reason Onset Date Comments Status Request 05/12/2024 Encounter Details Date Type Department Care Team ([facility] Contact Info) Description 05/12/2024 Telephone [facility] [address] [place], [place] [phone] Nae Whipple MD [address] [place], [place] [phone] Status Request Social History Tobacco Use Types [...] EDT Tc from pt requesting status on LATCHER form awaiting to be signed. Please contact pt at [phone]. (Yemeni Speaker) documented in this encounter Plan of Treatment Upcoming Encounters Date Type Department Care Team (Late st Contact Info) Description 03/03/2025 10:30 AM EDT Office Visit [facility] [address] [place] [address] Shanda Cuenca, OD [address] [place] [address] documented as of this encounter Visit Diagnoses Not on filedocumented in this encounter Care Teams Purse Seining Hand Relationship Specialty Start Date End Date Nae Whipple MD [address] [place] [address] PCP - General Family Medicine 07/29/20 Yasmeen Ovalle Photo RetoucherMachine Baster 10/01/24 documented as of this encounter
== END 2025-02-10 10:43 | disposition home or self-care (01) ==
LOC: HO.HCS 09:56
PROVIDERS: PCP General Practice; Visit Provider Internal Medicine Cardiovascular Disease
DX: E78.5 Hyperlipidemia, unspecified (principal); I10 Essential (primary) hypertension
CPT/HCPCS: 93010; 99213

== ENCOUNTER → 2025-02-10 09:55 | Outpatient (BNVA) | payer MEDICAID, SELFPAY | PROVIDERS: PCP General Practice; Visit Provider Internal Medicine Cardiovascular Disease | DX: E78.5 Hyperlipidemia, unspecified (principal); I10 Essential (primary) hypertension | CPT/HCPCS: 93005; 99212 ==

== ENCOUNTER 2025-03-17 09:43 | Outpatient (REF) | payer MEDICAID, SELFPAY ==
--- OUTSIDE RECORDS SUMMARY | 2025-03-17 10:03 | XMS_ITS | Clinical Summary ---
Author Organization [facility] [place] [address] Care Team Providers Care Scanning Supervisor Name Role Phone Unavailable Primary Care Provider [...]
--- OUTSIDE RECORDS SUMMARY | 2025-03-17 10:03 | XMS_ITS | Encounter Summary ---
Author Organization [facility] [employer] Address [address] [facility] 7 [place] [address] Care Team Providers Care Practice Managers Name Role Phone Nae Whipple MD Primary Care Provider [phone] Reason for Visit * Reason Onset Date Comments Status Request 05/12/2024 Encounter Details Date Type Department Care Team ([facility] Contact Info) Description 05/12/2024 Telephone [facility] [address] [place], [place] [phone] Nae Whipple MD [address] [place], [place] [phone] Status Request Social History Tobacco Use Types [...] EDT Tc from pt requesting status on CLINICAL FIELD SPECIALIST form awaiting to be signed. Please contact pt at [phone]. (Venezuelan Speaker) documented in this encounter Plan of Treatment Upcoming Encounters Date Type Department Care Team (Late st Contact Info) Description 04/05/2025 9:00 AM EDT Office Visit [facility] [address] [place] [address] Netta Gustafson DDS [address] [place] [address] 05/14/2025 2:15 PM EDT Office Visit [facility] [address] [place] [address] Nae Whipple MD [address] [place] [address] documented as of this encounter Visit Diagnoses Not on filedocumented in this encounter Care Teams Practice Managers Relationship Specialty Start Date End Date Nae Whipple MD [address] [place] [address] PCP - General Family Medicine 07/29/20 Yasmeen Ovalle Customs House BrokerManufacturing Sales Representative 10/01/24 documented as of this encounter
== END 2025-03-17 09:44 | disposition home or self-care (01) ==
LOC: HO.MAMMO 09:43
PROVIDERS: PCP General Practice; Visit Provider General Practice
DX: Z12.31 Encounter for screening mammogram for malignant neoplasm of breast (principal)
CPT/HCPCS: 77063; 77067

== ENCOUNTER → 2025-03-17 10:30 | Outpatient (BNV) | payer MEDICAID, SELFPAY | PROVIDERS: PCP General Practice; Visit Provider Internal Medicine | DX: Z12.31 Encounter for screening mammogram for malignant neoplasm of breast (principal) | CPT/HCPCS: 77063; 77067 ==

== ENCOUNTER 2025-05-14 14:52 | Outpatient (REF) | payer MEDICAID, SELFPAY ==
--- OUTSIDE RECORDS SUMMARY | 2025-05-12 09:15 | XMS_ITS | Encounter Summary ---
Author Organization [employer] Address [address] [facility] [address] [place] [address] Care Team Providers Care Supervisor Hard Candy Name Role Phone Nae Whipple MD Primary Care Provider [phone] Reason for Visit * Reason Comments Dentures Wax Try in Encounter Details Date Type Department Care Team ([facility] st Contact Info) Description 05/12/2025 9:15 AM EDT Office Visit [facility] [address] [place] [address] Netta Gustafson, DDS [address] [place] [address] Edentulism (Primary Dx); Teeth missing Social History Tobacco Use Types Packs/Day Years [...] AM EDT documented as of this encounter Last Filed Vital Signs Vital Sign Reading Time Taken Comments Blood Pressure 130/80 05/12/2025 9:06 AM EDT Pulse - - Temperature - - Respiratory Rate - - Oxygen Saturation - - Inhaled Oxygen Concentration - - Weight - - Height - - Body Mass Index - - documented in this encounter Progress Notes * Netta Gustafson, PRETTYS - 05/12/2025 9:15 AM EDT Patient ID: Sil Henning is a 64 y.o. female. Time Out: Timeout Date: 05/12/25, Timeout Time: 908 (Dentures wax try in) Location: [facility] Tooth: Maxilla and Mandible Procedure: Dentures wax try-in Verified the above with patient, assistant professor surgical technology, and provider. Confirmed via patient's chart, intraorally and by radiographs. Inspector Fuel Hose: not applicable Chief Complaint Patient presents with Dentures Wax Try in Medical Hx: Vitals: Blood pressure 130/80. Medications, Med Hx reviewed with patient and updated in chart. Consent Obtained: The risks, benefits, indications, potential complications, and alternatives were explained to the patient and informed consent was obtained with good understanding. Treatment Provided: Dental procedures in this visit D5110 - WAX TRY IN (Completed) Service provider: Netta Gustafson DDS Billing provider: Netta Gustafson DDS Tried in denture(s) with teeth set in wax. -Evaluated for comfort, fit, phonetics, and stability (f, v, s, th sounds; swallow, yawn, etc) -Evaluated for satisfactory esthetics. -Occlusion verified; adjustments to tooth set up made as needed Patient accepts all aspects of prosthesis and consents to proceed with final processing. Sent to Lab for final processing. Lab used: [facility] Lab Due Date: 05/19/2025 Patient discharged alert, oriented, and in stable condition. NV: Supervisor Sintering Plant: Eleanor Martinez Dentist: Netta Gustafson DDS documented in this encounter Plan of Treatment Upcoming Encounters Date Type Department Care Team (Late st Contact Info) Description 05/24/2025 11:15 AM EDT Office Visit [facility] [address] [place] [address] Netta Gustafson DDS [address] [place] [address] Scheduled Orders Name Type Priority Associated Diagnoses Orde r Schedule DENTAL LAB DENTURES AND PARTIALS Dental Routine Ordered: 025 documented as of this encounter Procedures Procedure Name Priority Date/Time Associated Diagnosis Comments WAX TRY IN Routine 05/12/2025 9:15 AM EDT Edentulism Teeth missing documented in this encounter Visit Diagnoses Diagnosis Edentulism- Primary Teeth missing Acquired absence of teeth, unspecified documented in this encounter Additional Health Concerns Assessment Noted Time PHQ-9 Depression Total Score: 8 07/06/20 24 10:22 AM EDT documented as of this encounter Care Teams Supervisor Hard Candy Relationship Specialty Start Date End Date Nae Whipple MD [address] [place] [address] PCP - General Family Medicine 07/29/20 Yasmeen Ovalle Corporate Strategy InternMachine Welt Butter 10/01/24 documented as of this encounter
--- NOTE | ~2025-05-14 | XR_ITS ---
EXAMINATION: XR HAND/WRIST, RIGHT XR HAND/WRIST, LEFT CLINICAL INFORMATION: pain and triggered fingers COMPARISON: None TECHNIQUE: PA, and [place], and lateral views each hand and wrist. FINDINGS: RIGHT HAND/WRIST: Normal bone mineralization. No fracture, dislocation, or suspicious bone lesion. There is normal alignment. There is no periarticular osteopenia. There are no periarticular erosions and there is no arthropathy evident. There is no soft tissue abnormality. LEFT HAND/WRIST: Normal bone mineralization. No fracture, dislocation, or suspicious bone lesion. There is normal alignment. There is no periarticular osteopenia. There are no periarticular erosions and there is no arthropathy evident. There is no soft tissue abnormality. XR/XR Hand Bilat min 3v IMPRESSION: Normal radiographs of the hands and wrists. Electronically signed by: Damien Whitley MD 05/14/2025 04:05 PM EDT
--- OUTSIDE RECORDS SUMMARY | 2025-05-14 14:15 | XMS_ITS | Encounter Summary ---
Author Organization [employer] Address [address] [facility] [address] [place] [address] Care Team Providers Care E Business Manager Name Role Phone Nae Whipple MD Primary Care Provider [phone] Reason for Visit * Reason Comments Follow-up Encounter Details Date Type Department Care Team ([facility] st Contact Info) Description 05/14/2025 2:15 PM EDT Office Visit [facility] [address] [place], [place] [phone] Nae Whipple MD [address] [place], [place] [phone] Paresthesia (Primary Dx); Dietary counseling; Exercise counseling; Overweight; Pain in both hands; Overactive bladder Social History Tobacco Use Types Packs/Day Years [...] Sign Reading Time Taken Comments Blood Pressure 108/60 05/14/2025 2:18 PM EDT Pulse 92 05/14/2025 2:18 PM EDT Temperature 37.3 C (99.1 F) 05/14/2025 2:18 PM EDT Respiratory Rate 20 05/14/2025 2:18 PM EDT Oxygen Saturation - - Inhaled Oxygen Concentration - - Weight 68.9 kg (152 lb) 05/14/2025 2:18 PM EDT Height 160 cm (5' 3 ) 05/14/2025 2:18 PM EDT Body Mass Index 26.93 05/14/2025 2:18 PM EDT documented in this encounter Plan of Treatment Upcoming Encounters Date Type Department Care Team (Late st Contact Info) Description 05/24/2025 11:15 AM EDT Office Visit [facility] [address] [place] [address] Netta Gustafson, DDS [address] [place] [address] Scheduled Orders Name Type Priority Associated Diagnoses Orde r Schedule TSH W/Reflex to FT4 Lab Routine Paresthesia Expected: 05/14/2025 (Approximate), Expires: 05/14/2026 Vitamin B12/Folate, Serum Panel Lab Routine Paresthesia Expected: 05/14/2025, Expires: 05/14/2026 RPR (Monitor) with Reflex to Titer Lab Routine Paresthesia Expected: 05/14/2025, Expires: 05/14/2026 CBC auto differential Lab Routine Paresthesia Expected: 05/14/2025 (Approximate), Expires: 05/14/2026 XR Hand 3+Views Bilateral Imaging Routine Pain in both hands Expected: 05/14/2025, Expires: 05/14/2026 Urinalysis, Complete, with Reflex to Culture Lab Routine Overactive bladder Expected: 05/14/2025 (Approximate), Expires: 05/14/2026 documented as of this encounter Visit Diagnoses Diagnosis Paresthesia- Primary Disturbance of skin sensation Dietary counseling Dietary surveillance and counseling Exercise counseling Overweight Pain in both hands Overactive bladder Hypertonicity of bladder documented in this encounter Additional Health Concerns Assessment Noted Time PHQ-9 Depression Total Score: 8 07/06/20 24 10:22 AM EDT documented as of this encounter Care Teams E Business Manager Relationship Specialty Start Date End Date Nae Whipple MD [address] [place] [address] PCP - General Family Medicine 07/29/20 Yasmeen Ovalle Assembler InsulatorStructural Steel Ironworker 10/01/24 documented as of this encounter
--- OUTSIDE RECORDS SUMMARY | 2025-05-14 14:55 | XMS_ITS | Encounter Summary ---
Author Organization [facility] Address [address] [facility] 7t [place] [address] Care Team Providers Care Sports Cartoonist Name Role Phone Nae Whipple MD Primary Care Provider [phone] Encounter Details Date Type Department Care Team (Late Contact Info) Description 05/16/[address] [facility] [address] [place] [address] Nae Whipple MD [address] [place], [place] [phone] Social History Tobacco Use Types Packs/Day Years [...] Description 05/24/2025 11:15 AM EDT Office Visit [facility] ADULT DENT[facility] [address] [place] [address] Meg-VannNetta barnett, DDS [address] [place], [place] [phone] documented as of this encounter Procedures Procedure Name Priority Date/Time Associated Diagnosis Comments COLONOSCOPY Routine 07/01/2014 documented in this encounter Results * Colonoscopy (07/01/2014) Colonoscopy Normal Normal Narrative Sarahi Hernandez - 07/01/2014 Recommended 10 year follow up ([facility]) us Historical Provider HEALTH MAINTENANCE Final Result documented in this encounter Visit Diagnoses Not on filedocumented in this encounter Care Teams Sports Cartoonist Relationship Specialty Start Date End Date Nae Whipple MD [address] [place] [address] PCP - General Family Medicine 07/29/20 Yasmeen Ovalle Diploma Pharmacy TechnicianDirect Marketing Representative 10/01/24 documented as of this encounter
--- OUTSIDE RECORDS SUMMARY | 2025-05-14 14:55 | XMS_ITS | Encounter Summary ---
Author Organization [employer] Address [address] [facility] [address] [place] [address] Care Team Providers Care Motor Vehicle Escort Driver Name Role Phone Nae Whipple MD Primary Care Provider [phone] Reason for Visit * Reason Onset Date Comments Status Request 05/12/2024 Encounter Details Date Type Department Care Team ([facility] st Contact Info) Description 05/12/2024 Telephone [facility] [address] [place], [place] [phone] Nae Whipple MD [address] [place], [place] [phone] Status Request Social History Tobacco Use Types [...] Miscellaneous Notes * Telephone Encounter - Edilberto Pennington - 05/12/2024 10:15 AM EDT Tc from pt requesting status on PIPE LAYER form awaiting to be signed. Please contact pt at [phone]. (Greenlandic Speaker) documented in this encounter Plan of Treatment Upcoming Encounters Date Type Department Care Team (Late st Contact Info) Description 05/24/2025 11:15 AM EDT Office Visit [facility] [address] [place] [address] Weaver-VannGretelNetta, DDS [address] [place] [address] documented as of this encounter Visit Diagnoses Not on filedocumented in this encounter Care Teams Motor Vehicle Escort Driver Relationship Specialty Start Date End Date Nae Whipple MD [address] [place] [address] PCP - General Family Medicine 07/29/20 Yasmeen Ovalle Encoding ClerkProduct Safety Professional 10/01/24 documented as of this encounter
--- OUTSIDE RECORDS SUMMARY | 2025-05-14 14:55 | XMS_ITS | Clinical Summary ---
Author Organization [employer] Address [address] [facility] [address] [place] [address] Care Team Providers Care Electronic Commerce Specialist Name Role Phone Nae Whipple MD Primary Care Provider [phone] Allergies Active Allergy Reactions Criticality Noted Date Comments Hydroxychloroquine 07/08/2014 Other reaction(s): Blurred VIsion Medications acetaminophen (Tylenol) 500 MG tablet take 1-2 tablet (1000MG) by oral route every 6 hours as needed 2 01/22/20 26 Active Diclofenac Sodium 1 % gel Apply 2 g topically every 6 (six) hours. Apply 2 gram by topical route 4 times every day to the affected area(s) 2 Active Blood Pressure kit Use on arm to check blood pressure 2-3 times a wekk Active venlafaxine XR (Effexor XR) 150 MG 24 hr capsuleIndicat ions:Depressiv e disorder TAKE 1 CAPSULE BY MOUTH ONCE DAILY 90 capsule 3 5 Active oxybutynin XL (Ditropan-XL) 10 MG 24 hr tabletIndicati ons:Overactive bladder TAKE 1 TABLET BY MOUTH EVERY MORNING. DO NOT BREAK, CRUSH, DISSOLVE OR CHEW. 90 tablet 3 5 Active pantoprazole (ProtoNix) 40 MG EC tablet Take 1 tablet by mouth Once per day. 5 Active amLODIPine (Norvasc) 5 MG tablet TAKE 1 TABLET BY MOUTH EVERY DAY 90 tablet 3 5 Active simvastatin (Zocor) 20 MG tablet TAKE 1 TABLET BY MOUTH EVERY DAY IN THE EVENING 90 tablet 3 5 Active enalapril (Vasotec) 20 MG tablet TAKE 1 TABLET BY MOUTH EVERY DAY 90 tablet 3 5 Active Aspirin Low Dose 81 MG EC tablet TAKE 1 TABLET BY MOUTH EVERY DAY 90 tablet 3 5 Active Calcium Carb-Cholecalc iferol 600-10 MG-MCG tablet TAKE 1 TABLET BY MOUTH TWICE DAILY 180 tablet 3 5 Active traZODone (Desyrel) 50 MG tablet Take 1 tablet (50 mg) by mouth at bedtime. 90 tablet 1 5 06/13/20 25 Active busPIRone (Buspar) 10 MG tablet Take 1 tablet by mouth every 12 (twelve) hours. 2 05/14/20 25 Discontin ued(Thera py completed ) V-R STOOL SOFTENER 100 MG capsule Take 100 mg by mouth in the morning and at bedtime. 2 05/14/20 25 Discontin ued(Thera py completed ) naproxen (Naprosyn) 500 MG tablet Take 500 mg by mouth with breakfast and with evening meal. 2 05/14/20 25 Discontin ued(Thera py completed ) clobetasol (Temovate) 0.05 % ointment APPLY TO LEGS TWICE DAILY NEEDED FOR FLARE. 3 05/14/20 25 Discontin ued(Thera py completed ) hydrOXYzine HCl (Atarax) 10 MG tablet Take 10 mg by mouth if needed in the morning, at noon, and at bedtime. 3 05/14/20 25 Discontin ued(Thera py completed ) triamcinolone (Kenalog) 0.1 % ointment APPLY TO ARMS TWICE DAILY NEEDED FOR FLARE. 3 05/14/20 25 Discontin ued(Thera py completed ) tacrolimus (Protopic) 0.1 % ointment APPLY TOPICALLY TO AFFECTED AREA(S) ON LEGS TWICE DAILY, ALTERNATE WITH steroid 3 05/14/20 25 Discontin ued(Thera py completed ) albuterol 108 (90 Base) MCG/ACT inhalerIndicat ions:Post-COVI D chronic dyspnea Inhale 2 puffs every 6 (six) hours if needed for wheezing. 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 Assessment & [...] Assessment & Plan (11/27/2022 12:59 PM EDT): [facility] Recommended no further surgery or injection Recommend caution with pain/presyncopal symptoms Assessment & Plan (08/31/2022 12:47 PM EST): [facility] Recommended no further surgery or injection [...] Encounters Date Type Department Care Team Description 05/14/2025 2:15 PM EDT Office Visit [facility] MED[facility] [address] [place] [address] Nae Whipple MD Paresthesia (Primary Dx); Dietary counseling; Exercise counseling; Overweight; Pain in both hands; Overactive bladder 05/14/2025 Travel 05/12/2025 9:15 AM EDT Office Visit [facility] ADULT DENTAL [address] [place] [address] Weaver-Vann, Netta, DDS Edentulism (Primary Dx); Teeth missing 05/12/2025 Telephone [facility] MED[facility] [address] [place] [address] Nae Whipple MD chart prep 05/04/2025 9:00 AM EDT Office Visit [facility] ADULT DENTAL [address] [place] [address] Weaver-Vann, Netta, DDS Edentulism (Primary Dx) 04/26/2025 9:30 AM EDT Office Visit [facility] ADULT DENTAL [address] [place] [address] Weaver-Vann, Netta, DDS Teeth missing (Primary Dx) 04/07/2025 10:00 AM EDT Office Visit [facility] OPTOMET[facility] [address] [place] [address] Bang, Shanda, OD Presbyopia (Primary Dx) 04/05/2025 Refill [facility] [address] [place] [address] Nae Whipple MD 03/17/2025 Orders Only [facility] [address] [place] [address] Nae Whipple MD 03/03/2025 10:30 AM EDT Office Visit [facility] OPT[facility] [address] [place] [address] Bang, Shanda, OD Nuclear sclerotic cataract of both eyes (Primary Dx); Presbyopia 03/03/2025 Travel 02/18/2025 Travel 02/15/2025 9:30 AM EDT Office Visit [facility] ADULT DENTAL [address] [place] [address] Antoine Osborn, PRETTYS Periodontal disease (Primary Dx) from Last 3 Months Immunizations Immunization Administration Dates Next Due DT (pediatric) 02/15/2012 [...] 20 05/14/2025 2:18 PM EDT Oxygen Saturation 98% 07/06/2024 10:16 AM EDT Inhaled Oxygen Concentration - - Weight 68.9 kg (152 lb) 05/14/2025 2:18 PM EDT Height 160 cm (5' 3 ) 05/14/2025 2:18 PM EDT Body Mass Index 26.93 05/14/2025 2:18 PM EDT Plan of Treatment Upcoming Encounters Date Type Department Care Team (Late st Contact Info) Description 05/24/2025 11:15 AM EDT Office Visit [facility] ADULT DENTAL [address] [place] [address] Netta Gustafson, DDS [address] [place] [address] Health Maintenance Due Date Last Done Comments CT Colonography 1961 FIT DNA/Cologuard 1961 FIT 1961 FOBT 1961 HIV Screening 1961 Sigmoidoscopy 1961 Disability Screening 1961 Hepatitis C Screening 12/05/1979 Pap Smear 1982 HPV/Cotest 12/05/1991 Zoster Vaccines (1 of 2) 12/05/2011 Pneumococcal Vaccine: 50+ Years (2 of 2 - PCV) 08/17/2015 08/17/2014 Dental Prophylaxis 08/16/2019 02/13/2019, 0 02/20/2018, 08/20/2017, Additional history exists DTaP/Tdap/Td Vaccines (3 - Td or Tdap) 02/14/2022 02/15/2012, 02/15/2012 COVID-19 Vaccine (3 - season) 2024 02/02/2021, 01/05/2021 Colonoscopy 07/01/2024 07/01/2014 Colorectal Cancer Screening 07/01/2024 Dental Oral Exam 04/15/2025 10/15/2024, , 08/20/2017, Additional history exists Influenza Vaccine (#1) 2025 , 08/31/2022, 07/08/2014, Additional history exists Alcohol/Substance Use Screening 07/06/2025 07/06/2024 Depression Screening 07/06/2025 07/06/2024, 07/06/20 24 SDOH Screening 07/06/2025 07/06/2024 Dental X-Ray: Bitewings 10/16/2025 10/15/19 25, 02/13/2019, 08/20/2017, Additional history exists Mammogram 03/17/2026 03/17/2025, 02/15, 03/08/2023, Additional history exists Tobacco Screening 05/12/2026 05/12/2025 Lipid Panel 05/25/2027 05/25/2022 Dental X-Ray: Full Mouth 01/28/2028 025, 10/15/2024, 02/13/2019, Additional history exists RSV Patients and Patients Aged 60 years or older (1 - 1-dose 75+ series) 2036 Cervical Cancer Screening Discontinued HIB Vaccines Aged [...] 05/12/2025 9:15 AM EDT Edentulism Teeth missing BITE REGISTRATION Routine 05/04/2025 9:0 0 AM EDT Edentulism DENTURE IMPRESSION Routine 04/26/2025 9: 30 AM EDT Teeth missing BI MAMMOGRAM SCREENING TOMOSYNTHESIS BILATERAL Routine 03/17/2025 9:47 AM EDT CASE PRESENTATION, DETAILED AND EXTENSIVE TREATMENT PLANNING Routine 02/15/2025 9:30 AM EDT 13 EXTRACTION, ERUPTED TOOTH OR EXPOSED ROOT (ELEVATION/FORCEPS REMOVAL) Routine 02/15/2025 9:30 AM EDT 12 EXTRACTION, ERUPTED TOOTH OR EXPOSED ROOT (ELEVATION/FORCEPS REMOVAL) Routine 02/15/2025 9:30 AM EDT 10 EXTRACTION, ERUPTED TOOTH OR EXPOSED ROOT (ELEVATION/FORCEPS REMOVAL) Routine 02/15/2025 9:30 AM EDT PANORAMIC RADIOGRAPHIC IMAGE Routine 01/26/2025 11:30 AM EDT Periodontal disease INTRAORAL - COMPLETE SERIES OF RADIOGRAPHIC IMAGES Routine 10/15/2024 2:30 PM EST Encounter for dental examination Dental calculus Periodontal disease Dental plaque PERIODIC ORAL EVALUATION - ESTABLISHED PATIENT Routine 10/15/2024 2:30 PM EST Encounter for dental examination Dental calculus Periodontal disease Dental plaque LIPID PANEL, STANDARD Routine 05/25/2022 9:53 AM EDT PROPHYLAXIS - ADULT Routine 02/13/2019 1 2:00 AM EDT HM COLONOSCOPY Routine 07/01/2014 from Last 3 Months or Most Recently Relevant to Health Maintenance Results * BI Mammogram Screening Tomosynthesis Bilateral (03/17/2025 9:47 AM EDT) Anatomical Region Laterality Modality Breast Bilateral Mammography 03/17/2025 9:47 AM EDT Narrative 03/28/2025 8:19 PM EDT [facility] [address] [place] [address] Mammography Report Signed Patient: Sil Salcedo MR#: [id number] : 1960 Acct:[id number] Age/Sex: 64 / F ADM Date: 03/17/25 Loc: [facility] Attending Dr: Nae Whipple MD Ordering Physician: Nae Whipple Results: 2Benign F indings Date of Service: 03/17/25 Follow Up: 1 Year From Orig inal Mammogram Procedure(s): MM tomosynthesis screening BI Accession Number(s): [id number] cc: Nae Whipple EXAMINATION: MM SCREENING DIGITAL BREAST TOMOSYNTHESIS, BILATERAL CLINICAL INFORMATION: Screening. Asymptomatic. COMPARISON: Mammography: Comparison is made with available priors TECHNIQUE: Digital breast mammography with tomosynthesis is performed in both the craniocaudal and mediolateral oblique views along with computer-aided detection (CAD). FINDINGS: There are scattered areas of fibroglandular density (ACR BI-RADS breast composition Category b). Right breast marker clip. There are no significant masses, abnormal calcifications, or other abnormalities. MM/MM tomosynthesis screening BI IMPRESSION: No mammographic evidence of malignancy. ASSESSMENT: BI-RADS BI-RADS 2 - Benign Findings RECOMMENDATION: Routine annual mammography screening. 1 year F/U This examination should not preclude the clinical evaluation of a suspicious palpable abnormality. This patient's information was entered into a reminder system with a target due date for their next mammogram. Electronically signed by: Sabi Meyers DO 03/28/2025 08:16 PM EDT RP Dictated By: Sabi Meyers DO Signed By: <Electronically signed by Sabi Meyers DO in OV> 03/28/252015 DD/ 0947 TD/TT: 03/17/25 1001 Ehr Trainer: Procedure Note Donotuseinterpreter, Image - 03/28/2025 [facility] [address] [place] [address] Mammography Report Signed Patient: Sil Salcedo GMR#: [id number] : 2Acct:[id number] Age/Sex: 64 / FADM Date: 03/17/25 Loc: [facility] Attending Dr: Nae Whipple MD Ordering Physician: Lor Whippleults: 2Bmariano aldana Date of Service: 03/17/25Follow Up: 1 Year From Orig inal Mammogram Procedure(s): MM tomosynthesis screening BI Accession Number(s): [id number] cc: Nea Whipple EXAMINATION: MM SCREENING DIGITAL BREAST TOMOSYNTHESIS, BILATERAL CLINICAL INFORMATION: Screening. Asymptomatic. COMPARISON: Mammography: Comparison is made with available priors TECHNIQUE: Digital breast mammography with tomosynthesis is performed in both the craniocaudal and mediolateral oblique views along with computer-aided detection (CAD). FINDINGS: There are scattered areas of fibroglandular density (ACR BI-RADS breast composition Category b). Right breast marker clip. There are no significant masses, abnormal calcifications, or other abnormalities. MM/MM tomosynthesis screening BI IMPRESSION: No mammographic evidence of malignancy. ASSESSMENT: BI-RADS BI-RADS 2 - Benign Findings RECOMMENDATION: Routine annual mammography screening. 1 year F/U This examination should not preclude the clinical evaluation of a suspicious palpable abnormality. This patient's information was entered into a reminder system with a target due date for their next mammogram. Electronically signed by: Sabi Meyers DO 03/28/2025 08:16 PM EDT RP Dictated By: Sabi Meyers DO Signed By: <Electronically signed by Sabi Meyers DO in OV> 03/28/252015 DD/ 0947 TD/TT: 03/17/25 1001 Ehr Trainer: Nae Whipple MD IMG BI PROCEDURES Edited Resul t - Final * (ABNORMAL) LIPID PANEL, STANDARD (05/25/2022 9:53 AM EDT) Chol/HDLC Ratio 3.6 <5.0 (calc) [facility] Cholesterol, Total 231(H) <200 mg/dL [facility] HDL Cholesterol 64 > OR = 50 mg/dL [facility] LDL Cholesterol 140(H) mg/dL (calc) [facility] Comment: Reference range: <100 Desirable range <100 mg/dL for primary prevention; <70 mg/dL for patients with CHD or diabetic patients with > or = 2 CHD risk factors. LDL-C is now calculated using the [place] calculation, which is a validated novel method providing better accuracy than the Friedewald equation in the estimation of LDL-C. Jeramy LE et al. JENN. 2013;310(19): 2669-7538 (http://education.Glue [employer].Telebit/faq/CTT262) Non-HDL Cholesterol 167(H) <130 mg/dL (calc) [facility] Comment: For patients with diabetes plus 1 major ASCVD risk factor, treating to a non-HDL-C goal of <100 mg/dL (LDL-C of <70 mg/dL) is considered a therapeutic option. Triglycerides 138 <150 mg/dL [facility] 05/25/2022 9:53 AM EDT Nae Whipple MD LAB BLOOD ORDERABLES Final Res ult [facility] [address] [place] [address], * Colonoscopy (07/01/2014) Colonoscopy Normal Normal Narrative Sarahi Hernandez - 07/01/2014 Recommended 10 year follow up ([facility]) Historical Provider HEALTH MAINTENANCE Final Result from Last 3 Months or Most Recently Relevant to Health Maintenance Insurance [facility] C3 DENTAL-[facility] MEDICAID STAND ADULT Care Teams Electronic Commerce Specialist Relationship Specialty Start Date End Date Nae Whipple MD [address] [place] [address] PCP - General Family Medicine 07/29/20 Yasmeen Ovalle Silo OperatorWire Spiral Binder 10/01/24
--- OUTSIDE RECORDS SUMMARY | 2025-05-14 14:55 | XMS_ITS | Encounter Summary ---
Author Organization [employer] Address [address] [facility] 7t [place] [address] Care Team Providers Care Exceptional Children Teacher Name Role Phone Nae Whipple MD Primary Care Provider [phone] Reason for Visit * Reason Onset Date Comments chart prep 05/12/2025 Encounter Details Date Type Department Care Team ([facility] st Contact Info) Description 05/12/2025 Telephone [facility] MEDICINE [address] [place], [place] [phone] Nae Whipple MD [address] [place], [place] [phone] chart prep Social History Tobacco Use Types Packs/Day Years [...] encounter Miscellaneous Notes * Telephone Encounter - Juan Castle [place] - 05/12/2025 12:50 PM EDT Chart Prep Labs: not applicable Images: done Referrals: not applicable Vaccines due: Covid, Flu, PCV20, Zoster, and DTAP Screenings: colonoscopy Overdue care gaps: SBIRT, SDOH, PHQ-9, and JAZMIN-7 documented in this encounter Plan of Treatment Upcoming Encounters Date Type Department Care Team (Late st Contact Info) Description 05/24/2025 11:15 AM EDT Office Visit [facility] ADULT DENTAL [address] [place] [address] Netta Gustafson, DDS [address] [place] [address] documented as of this encounter Visit Diagnoses Not on filedocumented in this encounter Additional Health Concerns Assessment Noted Time PHQ-9 Depression Total Score: 8 07/06/20 24 10:22 AM EDT documented as of this encounter Care Teams Exceptional Children Teacher Relationship Specialty Start Date End Date Nae Whipple MD [address] [place] [address] PCP - General Family Medicine 07/29/20 Yasmeen Ovalle Motor Builder WinderDance Director 10/01/24 documented as of this encounter
--- OUTSIDE RECORDS SUMMARY | 2025-05-14 14:55 | XMS_ITS | Encounter Summary ---
Author Organization [employer] Address [address] [facility] [address] [place] [address] Care Team Providers Care Pit Worker Power Shovel Name Role Phone Nae Whipple MD Primary Care Provider [phone] Reason for Visit * Reason Onset Date Comments Housing 11/26/2023 Encounter Details Date Type Department Care Team ([facility] st Contact Info) Description 11/26/2023 Telephone [facility] MEDICINE [address] [place], [place] [phone] Nae Whipple MD [address] [place], [place] [phone] Housing Social History Tobacco Use Types Packs/Day [...] handed to provider. Please contact pt @ [phone] Italian Speaker documented in this encounter Plan of Treatment Upcoming Encounters Date Type Department Care Team (Late st Contact Info) Description 05/24/2025 11:15 AM EDT Office Visit [facility] ADULT DENTAL [address] [place], [place] [phone] Netta Gustafson DDS [address] [place] [address] documented as of this encounter Visit Diagnoses Not on filedocumented in this encounter Care Teams Pit Worker Power Shovel Relationship Specialty Start Date End Date Nae Whipple MD [address] [place] [address] PCP - General Family Medicine 07/29/20 Yasmeen Ovalle Checking Department SupervisorControl Room Operator 10/01/24 documented as of this encounter
--- OUTSIDE RECORDS SUMMARY | 2025-05-14 14:55 | XMS_ITS | Clinical Summary ---
Author Organization [facility] ity Address [address] [place] [address] Care Team Providers Care Vp Publisher Development Name Role Phone Unavailable Primary Care Provider [...] Vaccine ( - 2023-2 5 season) 2024 Depression Screening 09/16/2024 Influenza Vaccine (#1) 2025 RSV Immunization Adult Patie nts (1 [...]
--- OUTSIDE RECORDS SUMMARY | 2025-05-14 14:55 | XMS_ITS | Encounter Summary ---
Author Organization [facility] Address [address] [facility] [address] [place] [address] Care Team Providers Care Spa Manager Name Role Phone Nae Whipple MD Primary Care Provider [phone] Encounter Details Date Type Department Care Team (Latest Contact Info) Description 02/13/2019 Abstract [facility] CONVERSIONS Dental, Provider, DDS Social History Tobacco [...] Description 05/24/2025 11:15 AM EDT Office Visit [facility] ADULT DENTAL [address] [place] [address] Weaver-Vann, Netta, DDS [address] [place] [address] documented as of this encounter Visit Diagnoses Not on filedocumented in this encounter Care Teams Spa Manager Relationship Specialty Start Date End Date Nae Whipple MD [address] [place] [address] PCP - General Family Medicine 07/29/20 Yasmeen Ovalle Recycling WorkerResin Shaver 10/01/24 documented as of this encounter
--- OUTSIDE RECORDS SUMMARY | 2025-05-14 14:55 | XMS_ITS | Encounter Summary ---
Author Organization [employer] Address [address] [place] [address] Care Team Providers Care Refrigeration Person Name Role Phone Nae Whipple MD Primary Care Provider [phone] Encounter Details Date Type Department Care Team (Latest Contact Info) Description 05/14/2025 Travel Social History Tobacco Use Types Packs/Day Years [...] Visit [facility] ADULT DENTAL [address] [place] [address] Netta Gustafson DDS [address] [place] [address] documented as of this encounter Visit Diagnoses Not on filedocumented in this encounter Additional Health Concerns Assessment Noted Time PHQ-9 Depression Total Score: 8 07/06/20 24 10:22 AM EDT documented as of this encounter Care Teams Refrigeration Person Relationship Specialty Start Date End Date Nae Whipple MD [address] [place] [address] PCP - General Family Medicine 07/29/20 Yasmeen Ovalle Worm FarmerBundle Person 10/01/24 documented as of this encounter
--- OUTSIDE RECORDS SUMMARY | 2025-05-14 14:55 | XMS_ITS | Clinical Summary ---
Author Organization [facility] Address [address] [place] [address] Phone Care Team Providers Care Manager Of Patient Name Role Phone Roddy Galvin MD Unavailable Unknown, Unknown Primary Care Provider Kenn chun Social History Tobacco Use Types Packs/Day Years Used Date Smoking Tobacco: Never Assessed Education Answer Date Recorded Are you interested in more education? Not on yonis e 01/11/2023 Are you concerned about learning? Not on file 01/11/2023 No 01/11/2023 No 01/11/2023 Digital Access Answer Date Recorded No 02/11/2023 No 02/11/2023 No 02/11/2023 Reliable internet access at home? Not on file 02/11/2023 Device with a working camera? Not on file Comments Unknown Sex and Gender Information Value Date Recorded Sex Assigned at Not on file Legal Sex Female 11:22 AM EST Gender Identity Not on file Sexual Orientation Not on file Plan of Treatment Health Maintenance Due Date Last Done Comments LIPID PANEL 1961 DEPRESSION SCREENING 1973 SMOKING Hx and SMOKELESS TOBACCO SCREENING 1974 HEPATITIS C SCREENING 12/05/1979 HIV ONE-TIME SCREENING (18-6 5 YEARS) 12/05/1979 PAP SMEAR 1982 MAMMOGRAM 2001 COLOGUARD 2006 COLONOSCOPY 2006 COLORECTAL CANCER SCREENING 2006 FIT TEST 2006 FOBT 2006 SIGMOIDOSCOPY 2006 VIRTUAL COLONOSCOPY 2006 ZOSTER VACCINES (1 of 2) 12/05/2011 PNEUMOCOCCAL VACCINES (50+ years) (2 of 2 - PCV) 08/17/2015 08/17/2014 Adult Td,Tdap Booster 02/14/2022 02/15/2012 COVID-19 VACCINE (2023-2 5 season) 2024 INFLUENZA VACCINE (#1) 2025 4, 07/23/2013, 07/08/2012 RSV VACCINE (1 - 1-dose 75+ series) 2036 HEPATITIS A VACCINES Aged Out No long er eligible based on patient's age to complete this topic HIB VACCINES Aged Out No longer eligi ble based on patient's age to complete this topic MENINGOCOCCAL VACCINES (ACWY) Aged Out No longer eligible based on patient's age to complete this topic MENINGOCOCCAL VACCINES (B) Aged Out N o longer eligible based on patient's age to complete this topic Medical Devices Not on file Insurance [facility] [facility] [place] [address] [place] [address] [employer] [facility] [place] [address] [place] [address] Care Teams Manager Of Patient Relationship Specialty Start Date End Date Unknown, Unknown, [address] [facility] [address] [place] [address] PCP - General 09/01/15 Roddy Galvin MD [address] [place] [phone] Orthopedic Surgery 09/01/15 Additional Source Comments The information contained in this document represents components of the legal health record. It is not the complete legal health record.[facility]
[2025-05-14 16:22] LABS: Appearance Urine Hazy; Glucose Urine UA Negative (Negative); PH 6.0 (5.0-9.0); Specific Gravity - Urine 1.010 (1.005-1.025); UMIC TRIGGER UACC YES
[2025-05-14 16:36] LABS: UACC Culture Trigger YES
[2025-05-14 17:30] LABS: MANUAL DIFF FLAG NO
[2025-05-14 17:36] LABS: Hematocrit 42.8 % (37.0-47.0); Hemoglobin 14.5 g/dl (12.0-16.0); Imm Gran Abs Auto 0.02 X10*3/uL (0.00-0.03); Imm Gran Pct Auto 0.3 % (0.0-0.4); Lymphocytes Absolute Auto 1.7 X10*3/uL (1.2-4.9); Mean Corpuscular HGB Conc 33.9 g/dl (31.0-35.0); Mean Corpuscular Hemoglobin 29.4 pg (27.0-33.0); Mean Corpuscular Volume 86.8 fL (80.0-98.0); NRBC Abs Auto 0.000 X10*3/uL (0.0-0.012); NRBC Pct Auto 0.0 /100WBC (0.0-0.2); Platelet Count 285 X10*3/uL (160-400); Red Blood Count 4.93 X10*6/uL (4.20-5.50); White Blood Count 6.1 X10*3/uL (4.8-10.8)
[2025-05-14 19:09] LABS: Folate 8.6 ng/mL (> or = 4.0); Vitamin B12 301 pg/mL (200-900)
== END 2025-05-14 14:53 | disposition home or self-care (01) ==
LOC: HO.HHCL 14:52
PROVIDERS: PCP General Practice; Visit Provider General Practice
DX: R20.2 Paresthesia of skin (principal); N32.81 Overactive bladder; M79.641 Pain in right hand; M79.642 Pain in left hand; M65.341 Trigger finger, right ring finger; M65.342 Trigger finger, left ring finger
CPT/HCPCS: 36415; 73130; 81001; 82607; 82746; 84443; 85025; 86592; 87086; 87088; 87186

== ENCOUNTER → 2025-05-14 15:10 | Outpatient (BNV) | payer MEDICAID, SELFPAY | PROVIDERS: PCP General Practice; Visit Provider Radiology Diagnostic Radiology | DX: M79.641 Pain in right hand (principal); M79.642 Pain in left hand; M79.644 Pain in right finger(s); M79.645 Pain in left finger(s) | CPT/HCPCS: 73110; 73130 ==

== ENCOUNTER 2025-06-10 09:45 | Outpatient (REF) | payer MEDICAID, SELFPAY ==
--- OUTSIDE RECORDS SUMMARY | 2025-06-11 13:45 | XMS_ITS | Encounter Summary ---
Author Organization [employer] Address [address] [facility] 7t [place] [address] Care Team Providers Care Restaurant Maintenance Technician Name Role Phone Nae Whipple MD Primary Care Provider Encounter Details Date Type Department Care Team (Late st Contact Info) Description 05/18/2025 Results Follow-Up [facility] MED[facility]INE [address] [place], [place] [phone] Darlene Mallory MD [address] [place] [address] TSH W/Reflex to FT4, Vitamin B12/Folate, Serum [...] documented as of this encounter Care Teams Restaurant Maintenance Technician Relationship Specialty Start Date End Date Nae Whipple MD [address] [place] [address] PCP - General Family Medicine 07/29/20 Yasmeen Ovalle Manager PaperCommission Sales Associate 10/01/24 documented as of this encounter
--- OUTSIDE RECORDS SUMMARY | 2025-06-11 13:45 | XMS_ITS | Clinical Summary ---
Author Organization [facility] ity Address [address] [place] [address] Care Team Providers Care Oil And Gas Superintendent Name Role Phone Unavailable Primary Care Provider [...]
--- OUTSIDE RECORDS SUMMARY | 2025-06-11 13:45 | XMS_ITS | Clinical Summary ---
Author Organization [facility] Address [address] [place] [phone] Phone Care Team Providers Care Exploration Geologist Name Role Phone Roddy Galvin MD Unavailable [...] topic Medical Devices Not on file Insurance [facility] [place] [address] [address] [facility] [address] [place] [address] Care Teams Exploration Geologist Relationship Specialty Start Date End Date Unknown, Unknown, [address] [facility] [address] [place] [address] PCP - General 09/01/15 Roddy Galvin MD [address] [place] [phone] Orthopedic Surgery 09/01/15 Additional Source Comments The information contained in this document represents components of the legal health record. It is not the complete legal health record.Formerly [facility]
--- OUTSIDE RECORDS SUMMARY | 2025-06-11 13:45 | XMS_ITS | Encounter Summary ---
Author Organization [employer] Address 75 [facility] 7t [place] [address] Care Team Providers Care Arterial Embalmer Name Role Phone Nae Whipple MD Primary Care Provider Reason for Visit * Reason Onset Date Comments Status Request 05/12/2024 Encounter Details Date Type Department Care Team ([facility] st Contact Info) Description 05/12/2024 Telephone [facility] MED[facility] [address] [place], [place] [phone] Nae Whipple MD [address] [place], [place] [phone] Status Request Social History Tobacco Use Types [...] EDT Tc from pt requesting status on PUMP OILER form awaiting to be signed. Please contact pt at [phone]. (Yoruba Speaker) documented in this encounter Plan of Treatment Not on file documented as of this encounter Visit Diagnoses Not on filedocumented in this encounter Care Teams Arterial Embalmer Relationship Specialty Start Date End Date Nae Whipple MD [address] [place] [address] PCP - General Family Medicine 07/29/20 Yasmeen Ovalle Life GuardMetal Plater 10/01/24 documented as of this encounter
--- OUTSIDE RECORDS SUMMARY | 2025-06-11 13:45 | XMS_ITS | Encounter Summary ---
Author Organization [facility] [facility] Address 75 [facility] 7t [place] [address] Care Team Providers Care Regional Cra Name Role Phone Nae Whipple MD Primary Care Provider [phone] Encounter Details Date Type Department Care Team (Latest Contact Info) Description 02/13/2019 Abstract [facility] CONVERSIONS Dental, Provider, DDS Social History [...] on filedocumented in this encounter Care Teams Regional Cra Relationship Specialty Start Date End Date Nae Whipple MD [address] [place] [phone] PCP - General Family Medicine 07/29/20 Yasmeen Ovalle Fireboat OperatorJanitor Caretaker 10/01/24 documented as of this encounter
--- OUTSIDE RECORDS SUMMARY | 2025-06-11 13:45 | XMS_ITS | Encounter Summary ---
Author Organization [employer] Address 75 [facility] 7t [place] [address] Care Team Providers Care Service Loss Control Consultant Name Role Phone Nae Whipple MD Primary Care Provider [phone] Reason for Visit * Reason Onset Date Comments Housing 11/26/2023 Encounter Details Date Type Department Care Team ([facility] st Contact Info) Description 11/26/2023 Telephone [facility] MEDICINE [address] [place], [place] [phone] Nae Whipple MD [address] [place], [place] [phone] Housing Social History Tobacco Use Types Packs/Day [...] handed to provider. Please contact pt @ [phone] Welsh Speaker documented in this encounter Plan of Treatment Not on file documented as of this encounter Visit Diagnoses Not on filedocumented in this encounter Care Teams Service Loss Control Consultant Relationship Specialty Start Date End Date Nae Whipple MD [address] [place] [address] PCP - General Family Medicine 07/29/20 Yasmeen Ovalle Wig StylistCommercial Interior Designer 10/01/24 documented as of this encounter
--- OUTSIDE RECORDS SUMMARY | 2025-06-11 13:45 | XMS_ITS | Encounter Summary ---
Author Organization [employer] Address 75 [facility] 7t [place] [address] Care Team Providers Care Novelty Chain Maker Name Role Phone Nae Whipple MD Primary Care Provider [phone] Encounter Details Date Type Department Care Team (Late st Contact Info) Description 05/16/2023 Abstract [facility] MEDICINE [address] [place], [place] [phone] Nae Whipple MD 230 [place], [place] [phone] Social History Tobacco Use Types Packs/Day Years [...] - 07/01/2014 [place] 10 [place] [place] Historical Provider HEALTH MAINTENANCE Final Result documented in this encounter Visit Diagnoses Not on filedocumented in this encounter Care Teams Novelty Chain Maker Relationship Specialty Start Date End Date Nae Whipple MD 230 [place] [address] PCP - General Family Medicine 07/29/20 Yasmeen Ovalle Tool Planer Set Up OperatorAutomated Cutting Machine Operator 10/01/24 documented as of this encounter
--- OUTSIDE RECORDS SUMMARY | 2025-06-11 13:45 | XMS_ITS | Clinical Summary ---
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 Assessment [...] Description 05/24/2025 11:15 AM EDT Office Visit [facility] [address] [place] [address] Weaver-Vann , Netta, DDS Edentulism (Primary Dx) 05/18/2025 Results Follow-Up [facility] [address] [place], [place] [phone] Darlene Mallory MD TSH W/Reflex to FT4, Vitamin B12/Folate, Serum Panel, RPR (Monitor) with Reflex to Titer, Additional followed-up results: 2 05/18/[address] [address] Marian Peralta RN Results 05/14/2025 2:15 PM EDT Office Visit [address] [address] Nae Whipple MD Primary hypertension (Primary Dx); Dietary counseling; Exercise counseling; Overweight; Paresthesia; Pain in both hands; Overactive bladder; Primary insomnia; Acute cystitis without hematuria; Depressive disorder 05/14/2025 Orders Only [address] [address] Nae Whipple MD 05/14/2025 Travel 05/12/2025 9:15 AM EDT Office Visit [facility] [address] [place] [address] Weaver-Vann , Netta, DDS Edentulism (Primary Dx); Teeth missing 05/12/[address] [address] Nae Whipple MD chart prep 05/04/2025 9:00 AM EDT Office Visit [facility] [address] [place] [address] Weaver-Vann , Netta, DDS Edentulism (Primary Dx) 04/26/2025 9:30 AM EDT Office Visit [facility] [address] [place] [address] Weaver-Vann , Netta, DDS Teeth missing (Primary Dx) 04/07/2025 10:00 AM EDT Office Visit [facility] OPT[facility] [address] [place] [address] Bang, Shanda, OD Presbyopia (Primary Dx) 04/05/[address] [address] Nae Whipple MD 03/17/2025 Orders Only [address] [place] [address] Nae Whipple MD from Last 3 Months [...] Vitamin B12 301 200 - 900 pg/mL [facility] Comment:NORMAL 200-900 PG/ML INDETERMINATE 160-199 PG/ML DEFICIENT < 160 PG/ML Folate 8.6 > or = 4.0 ng/mL [facility] Comment:Reference Values:> o r = 4.0 ng/mL< 4.0 ng/mL suggests folate deficiency Methotrexate, aminopterin and folinic acid(leucovorin) are chemotherapeutic agents whose molecularstructures are similar to folate; therefore, the Architectfolate assay cannot be used for patients using these drugs. Blood Venous blood specimen / Unknown 05/14/2025 3:05 PM EDT 05/14/2025 5:25 PM EDT us Nae Whipple MD LAB BLOOD ORDERABLES Final Res ult [facility] [address] [place] [phone] * (ABNORMAL) Urinalysis, Complete, with Reflex to Culture (05/14/2025 3:05 PM EDT) Color Urine Yellow [facility] Appearance Urine Hazy [facility] PH 6.0 5.0 - 9.0 [facility] Glucose Urine UA Negative Negative mg/dL [facility] Urine Blood Negative Negative [facility] Specific [place] - Urine 1.010 1.005 - 1.025 [facility] Urine Protein Negative Neg-Trace mg/dL [facility] Urine Ketones Trace Negative mg/dL [facility] Nitrite Urine Positive(A) Negative [facility] Leukocyte Esterase Urine Negative Negative [facility] RBC Urine 0-2 0 - 2 /HPF [facility] Urine WBC 6-10(A) 0 - 5 /HPF [facility] Urine Squamous Epithelial Cell 0-2 0 - 2 /HPF [facility] Urine Bacteria 4+ None Seen [facility] Hyaline Casts, Urine 0-2 0 - 2 /LPF [facility] Urine 05/14/2025 3:05 PM EDT 05/14/2025 4:10 PM EDT Narrative [facility] - 05/14/2025 4:44 PM EDT Urine, Clean Catch Nae Whipple MD LAB URINE ORDERABLES Final Res ult Performing Organization Address [facility] Co de Phone Number [facility] [address] [place] [phone] * TSH W/Reflex to FT4 (05/14/2025 3:05 PM EDT) TSH reflex Free T4 1.49 0.32 - 4.0 uIU/mL [facility] Blood Venous blood specimen / Unknown 05/14/2025 3:05 PM EDT 05/14/2025 5:25 PM EDT Nae Whipple MD LAB BLOOD ORDERABLES Final Res ult Performing Organization Address [facility] Co de Phone Number [facility] [address] [place] [phone] * CBC auto differential (05/14/2025 3:05 PM EDT) White Blood Count 6.1 4.8 - 10.8 X10*3/uL [facility] Red Blood Count 4.93 4.20 - 5.50 X10*6/uL [facility] Hemoglobin 14.5 12.0 - 16.0 g/dl [facility] Hematocrit 42.8 37.0 - 47.0 % [facility] Mean Corpuscular Volume 86.8 80.0 - 98.0 fL [facility] Mean Corpuscular Hemoglobin 29.4 27.0 - 33.0 pg [facility] Mean Corpuscular HGB Conc 33.9 31.0 - 35.0 g/dl [facility] Red Cell Distribution Width 12.4 11.0 - 16.0 % [facility] Platelet Count 285 160 - 400 X10*3/uL [facility] Mean Platelet Volume 10.2 9.4 - 12.3 [facility] Neutrophils Percent Auto 60.1 45 - 73 % [facility] Imm Gran Pct Auto 0.3 0.0 - 0.4 % [facility] Lymphocytes Percent Auto 28.2 20 - 40 % [facility] Monocytes Percent Auto 7.5 2 - 11 % [facility] Eosinophils Percent Auto 3.1 0 - 4 % [facility] Basophils Percent Auto 0.8 0 - 2 % [facility] NRBC Pct Auto 0.0 0.0 - 0.2 /100WBC [facility] Neutrophils Absolute Auto 3.7 2.0 - 8.3 x10*3/uL [facility] Imm Gran Abs Auto 0.02 0.00 - 0.03 X10*3/uL [facility] Lymphocytes Absolute Auto 1.7 1.2 - 4.9 X10*3/uL [facility] Monocytes Absolute Auto 0.5 0.1 - 1.2 X10*3/uL [facility] Eosinophils Absolute Auto 0.2 0.0 - 0.4 X10*3/uL [facility] Basophils Absolute Auto 0.1 0.0 - 0.2 X10*3/uL [facility] NRBC Abs Auto 0.000 0.0 - 0.012 X10*3/uL [facility] Blood Venous blood specimen / Unknown 05/14/2025 3:05 PM EDT 05/14/2025 5:25 PM EDT us Nae Whipple MD LAB BLOOD ORDERABLES Final Res ult Performing Organization Address [facility] Co de Phone Number [facility] [address] [place] [phone] * RPR (Monitor) with Reflex to??Titer (05/14/2025 3:05 PM EDT) RPR (Monitor) w/Refl Titer NON-REACTI VE NON-REACT LUIS FELIPE [facility] Comment:THIS TEST WAS PERFOR MED AT:[address] [place] [phone] OLSON MD Rapid Plasma Reagin Ab Titer TNP [facility] Blood Venous blood specimen / Unknown 05/14/2025 3:05 PM EDT 05/14/2025 5:25 PM EDT Nae Whipple MD LAB BLOOD ORDERABLES Final Res ult Performing Organization Address [facility] Co de Phone Number [facility] [address] [place] [phone] * XR Hand 3+Views Bilateral (05/14/2025 2:38 PM EDT) Anatomical Region Laterality Modality Upper Extremities, Hand Bilateral Radiogra phic Imaging 05/14/2025 2:38 PM EDT Narrative 05/14/2025 4:07 PM EDT [address] [address] XRay Report Signed Patient: Sil Salcedo MR#: [id number] : 1960 Acct:[id number] Age/Sex: 64 / F ADM Date: 05/14/25 Loc: .[facility] Attending Dr: Nae Whipple MD Ordering Physician: Nae Whipple Date of Service: 05/14/25 Procedure(s): XR Hand Bilat min 3v Accession Number(s): [id number] cc: Nae Whipple EXAMINATION: XR HAND/WRIST, RIGHT [...] 05/14/25 1605 DD/ 1438 TD/TT: 05/14/25 1440 Front Desk Supervisor: Procedure Note Donotuseinterpreter, Image - 05/14/[address] [address] XRay Report Signed Patient: Sil Salcedo GMR#: [id number] : 2Acct:[id number] Age/Sex: 64 / FADM Date: 05/14/25 Loc: .[facility] Attending Dr: Nae Whipple MD Ordering Physician: Nae Whipple Date of Service: 05/14/25 Procedure(s): XR Hand Bilat min 3v Accession Number(s): [id number] cc: Nae Whipple EXAMINATION: XR HAND/WRIST, RIGHT [...] 05/14/25 1605 DD/ 1438 TD/TT: 05/14/25 1440 Front Desk Supervisor: Nae Whipple MD IMG XR PROCEDURES Final Result * Culture, Urine, Routine (05/14/2025 12:00 AM EDT) Urine Urine specimen obtained by clean catch procedure / Unknown 05/14/2025 05/14/2025 Comment:UACC Narrative [facility] - 05/16/2025 7:45 AM EDT Klebsiella pneumoniae Quant > 100,000 cfu/mL Klebsiella pneumoniae: Ampicillin 16(R) Klebsiella pneumoniae: Cefazolin 2(S) Klebsiella pneumoniae: Cefepime <=0.12(S) Klebsiella pneumoniae: Ceftriaxone <=0.25(S) Klebsiella pneumoniae: Ciprofloxacin <=0.06(S) Klebsiella pneumoniae: Gentamicin <=1(S) Klebsiella pneumoniae: Nitrofurantoin 32(S) Klebsiella pneumoniae: Trimethoprim/Sulfamethoxazole <=20(S) Specimen Source: Urine clean catch Nae Whipple MD LAB MICROBIOLOGY - GENERAL ORD ERABLES Final Result [facility] [address] [place] [phone] * BI Mammogram Screening Tomosynthesis Bilateral (03/17/2025 9:47 AM EDT) Anatomical Region Laterality Modality Breast Bilateral Mammography 03/17/2025 9:47 AM EDT Narrative 03/28/2025 8:19 PM EDT [address] [place] [address] Mammography Report Signed Patient: Sil Salcedo MR#: [id number] : 1960 Acct:[id number] Age/Sex: 64 / F ADM Date: 03/17/25 Loc: HO.MAMMO Attending Dr: Nae Whipple MD Ordering Physician: Nae Whipple Results: 2Benign F indings Date of Service: 03/17/25 Follow Up: 1 Year From Orig ina Mammogram Procedure(s): MM tomosynthesis screening BI Accession Number(s): [id number] cc: Nae Whipple EXAMINATION: MM SCREENING DIGITAL [...] OV> 03/28/252015 DD/ 0947 TD/TT: 03/17/25 1001 Front Desk Supervisor: Procedure Note Donotuseinterpreter, Image - 03/28/[address] [place] [address] Mammography Report Signed Patient: Sil Salcedo GMR#: [id number] : 1960cct:[id number] Age/Sex: 64 / FADM Date: 03/17/25 Loc: HO.MAMMO Attending Dr: Nae Whipple MD Ordering Physician: Lor Whippleults: 2Benign F indings Date of Service: 03/17/25Follow Up: 1 Year From Orig ina Mammogram Procedure(s): MM tomosynthesis screening BI Accession Number(s): [id number] cc: Nae Whipple EXAMINATION: MM SCREENING DIGITAL [...] OV> 03/28/252015 DD/ 0947 TD/TT: 03/17/25 1001 Front Desk Supervisor: Nae Whipple MD IMG BI PROCEDURES Edited [...] LDL-C. Jeramy LE et al. JENN. 2013;310(19): 5861-9576 (http://education.Peap.co.Evoleen/faq/USH103) Non-HDL Cholesterol 167(H) <130 mg/dL (calc) [facility] Comment: For patients with diabetes plus 1 major ASCVD risk factor, treating to a non-HDL-C goal of <100 mg/dL (LDL-C of <70 mg/dL) is considered a therapeutic option. Triglycerides 138 <150 mg/dL [facility] 05/25/2022 9:53 AM EDT Nae Whipple MD LAB BLOOD ORDERABLES Final Res ult [facility] [address] * Colonoscopy (07/01/2014) Colonoscopy Normal Normal Narrative Sarahi Hernandez - 07/01/2014 Recommended 10 year follow [place] [place] Historical Provider HEALTH MAINTENANCE Final Result from Last 3 Months or Most Recently Relevant to Health Maintenance Insurance [facility] C3 DENTAL-[facility] MEDICAID STAND ADULT Care Teams Operations Consultant Relationship Specialty Start Date End Date Nae Whipple MD [address] [place] [phone] PCP - General Family Medicine 07/29/20 Yasmeen Ovalle Document ExaminerDocument Scanner 10/01/24
== END 2025-06-10 09:46 | disposition home or self-care (01) ==
LOC: HO.LNP 09:45
PROVIDERS: PCP General Practice; Visit Provider Nurse Practitioner
DX: K21.9 Gastro-esophageal reflux disease without esophagitis (principal); A04.8 Other specified bacterial intestinal infections; Z79.899 Other long term (current) drug therapy
CPT/HCPCS: 87338; 99212

== ENCOUNTER 2025-06-10 09:45 | Outpatient (AMB) | payer MEDICAID, SELFPAY ==
--- NOTE | 2025-06-10 09:49 | A.OFFVIS_ITS ---
Vital Signs 06/10/25 09:55 Weight 151 lb 10.848 oz BP 135/86 Blood Pressure Location Lt brachial Position Sitting Intake Visit Reasons: Follow up H pilory Intake Note: Patient in office today in follow up of H pylori. CC: Patient reports doing well today and denies having any new GI symptoms today. Probate Clerk Required: Yes Probate Clerk Services: Probate Clerk Offered & Declined Probate Clerk Name: Son in law Accompanied by: son in law Allergies hydroxychloroquine (From [place]) Allergy (Unknown, Verified 06/10/25 09:56) AFFECTED VISION HPI HPI Follow up H pilory: Details: Assessment & Plan (1) H. pylori infection: Comment: 10/2024 treated quadruple therapy Code(s): A04.8 - Other specified bacterial intestinal infections Category: Medical (2) Gallstones: Comment: HIDA scan 09/2024 does not show these to be problematic at this Code(s): K80.20 - Calculus of gallbladder without cholecystitis without obstruction Category: Medical (3) GERD (gastroesophageal reflux disease): Code(s): K21.9 - Gastro-esophageal reflux disease without esophagitis Category: Medical Plan Vietnamese #family member translates per pt request I tx'ed her with quadruple therapy. She completed the therapy in October and she is feeling much better she still has some GERD but not as bad as before and no abd pain. She tolerated the treatment well. We will retest for eradication. ROV 3 mos. 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 Maternal Aunt Cancer Social History Household Members: None Housing: Apartment Alcohol intake: current Alcohol intake frequency: holidays/special occasions only Patient Tobacco Use Status: Never used Tobacco Review of Systems Const Denies fatigue, Denies fever(s), Denies night sweats, Denies poor appetite and Denies weight loss Eyes Details: glasses Reports requires corrective lenses ENT Reports Normal hearing present, Denies dental pain, Denies dysphagia, Denies hearing loss, Denies mouth pain, Denies odynophagia, Denies throat swelling, Denies tongue swelling and Reports other (Dentition adequate) Card Reports no additional complaints Resp Reports no additional complaints GI Details: Denies abdominal pain, Denies melena, Denies bloating, Denies hematochezia, Denies constipation, Denies GI cramping, Denies dysphagia, Denies excessive flatus, Denies early satiety, Reports heartburn, Denies diarrhea, Denies nausea, Denies odynophagia, Denies vomiting and Denies hematemesis Skin/Breast Denies pruritus, Denies lesions, Denies rash and Denies jaundice Neuro Reports Normal hearing present and Denies Abnormal speech present Endo Denies fatigue Aller/Immun Denies throat swelling and Denies tongue swelling Physical Exam Const General: cooperative, no acute distress, well developed and well groomed Nutritional Appearance: average body habitus and well nourished Orientation/consciousness: oriented to person, oriented to place and oriented to time Limitations: language barrier HEENT Head: Yes normocephalic and Yes atraumatic Eyes General: appearance normal, both eyes and all related structures Pupils: Equal, round and reactive pupils present Neck Neck: Yes normal visual inspection and Yes no lymphadenopathy Thyroid: Thyroid normal Resp Effort & Inspection: normal respiratory effort and able to speak in complete sentences Auscultation: clear to auscultation bilaterally Cardio Rate: regular rate Rhythm: regular rhythm Heart sounds: Normal, physiologic split S2 sound present Peripheral pulses: radial pulses present and posterior tibial pulses present GI Inspection: No distended and No Abdominal panniculus present Palpation (GI): Soft to palpation, nontender, no guarding, not rigid and No hepatosplenomegaly present Percussion: Yes normal to percussion Auscultation: normal bowel sounds Rectal Exam - Female: deferred Skin General skin exam: no rashes or lesions noted, turgor normal, skin not dry, no jaundice, No spider nevi and no striae Rashes: no rashes Nails: normal Neuro General: oriented to person, oriented to place and oriented to time Cranial nerves: Yes Equal, round and reactive pupils present and Yes Normal hearing present Speech: No Abnormal speech present Extrem General: Yes normal to inspection, No clubbing, No cyanosis and No edema Psych Appearance: grossly normal and well kempt Mental Status: mental status grossly normal Speech and movement: Normal speech and movement present Affect: normal affect Attitude: cooperative Thought process: Normal thought process present and not confabulating Thought content: Normal thought content present Insight: Fair insight present (Psych) Judgement: Fair judgement present (Psych) Assessment & Plan Assessment & Plan (1) GERD (gastroesophageal reflux disease): Code(s): K21.9 - Gastro-esophageal reflux disease without esophagitis Category: Medical (2) H. pylori infection: Comment: 10/2024 treated quadruple therapy Code(s): A04.8 - Other specified bacterial intestinal infections Category: Medical Plan Vietnamese # family member translates per patient request - The patient is a 64-year-old female presenting with a follow-up for Helicobacter pylori infection treatment. - Following the completion of antibiotics, the patient has not yet conducted confirmatory testing to verify eradication of H. pylori. - Stool test has been preferred to determine eradication status, especially while the patient is on pantoprazole medication. - She reports continued well-being since initiating pantoprazole treatment for GERD symptoms. Return office visit in 8 weeks to evaluate the H pylori stool test Orders: Orders H pylori Ag Stool Today A04.8 - Other specified bacterial intestinal infections, K21.9 - Gastro-esophageal reflux disease without esophagitis Medications: Refilled pantoprazole (Protonix) 40 mg PO DAILY 90 tabs 0RF 90 days K21.9 - Gastro- esophageal reflux disease without esophagitis Coding Level of Care Code Est Pt Level 3 (31044) Diagnoses GERD (gastroesophageal reflux disease) K21.9 H. pylori infection A04.8
[2025-06-10 09:55] VITALS: BP 135/86
--- OUTSIDE RECORDS SUMMARY | 2025-06-10 11:36 | XMS_ITS | Clinical Summary ---
Author Organization [facility] Address [address] [place] [phone] Phone Care Team Providers Care Clinical Services Professional Name Role Phone Roddy Galvin MD Unavailable [...] 08/17/2015 08/17/2014 Adult Td,Tdap Booster 02/14/2022 02/15/2012 INFLUENZA VACCINE (#1) 2025 4, 07/23/2013, 07/08/2012 COVID-19 VACCINE ( - 2023-2 5 season) 2025 RSV VACCINE (1 - 1-dose 75+ series) [...] topic Medical Devices Not on file Insurance [facility] [place] [place] [address] [facility] [place] [address] [place] [address] Care Teams Clinical Services Professional Relationship Specialty Start Date End Date Unknown, Unknown, [address] [facility] [address] [place] [phone] PCP - General 09/01/15 Roddy Galvin MD [address] [place] [phone] Orthopedic Surgery 09/01/15 Additional Source Comments The information contained in this document represents components of the legal health record. It is not the complete legal health record.[facility]
--- OUTSIDE RECORDS SUMMARY | 2025-06-10 11:36 | XMS_ITS | Encounter Summary ---
Author Organization [employer] Address [address] [facility] [address] [place] [address] Care Team Providers Care Apartment Coordinator Name Role Phone Nae Whipple MD Primary Care Provider Encounter Details Date Type Department Care Team (Late st Contact Info) Description 05/16/2023 Abstract [facility] MEDICINE [address] [place], [place] [phone] Nae Whipple MD [address] [place], [place] [phone] Social History Tobacco Use Types Packs/Day Years [...] as of this encounter Plan of Treatment Not on file documented as of this encounter Procedures Procedure Name Priority Date/Time Associated Diagnosis Comments COLONOSCOPY Routine 07/01/2014 documented in this encounter Results * Colonoscopy (07/01/2014) Colonoscopy Normal Normal Narrative Sarahi Hernandez - 07/01/2014 Recommended 10 year follow up ([facility]) Historical Provider HEALTH MAINTENANCE Final Result documented in this encounter Visit Diagnoses Not on filedocumented in this encounter Care Teams Apartment Coordinator Relationship Specialty Start Date End Date Nae Whipple MD [address] [facility] [place] [address] PCP - General Family Medicine 07/29/20 Yasmeen Ovalle Jump Roll OperatorTelephone Engineer 10/01/24 documented as of this encounter
--- OUTSIDE RECORDS SUMMARY | 2025-06-10 11:36 | XMS_ITS | Clinical Summary ---
Author Organization [employer] Address [address] [facility] 7t [place] [address] Care Team Providers Care Outreach Liaison Name Role Phone Nae Whipple MD Primary Care Provider [phone] Allergies Active Allergy Reactions Criticality Noted Date Comments Hydroxychloroquine 07/08/2014 Other reaction(s): Blurred VIsion Medications acetaminophen (Tylenol) 500 MG tablet take 1-2 tablet (1000MG) by oral route every 6 hours as needed 2 026 Active Diclofenac Sodium 1 % gel Apply [...] 3 5 Active traZODone (Desyrel) 50 MG tabletIndicati ons:Primary insomnia Take 1 tablet (50 mg) by mouth at bedtime. 90 tablet 1 5 025 Active busPIRone (Buspar) 10 MG tablet Take 1 tablet by mouth every 12 (twelve) hours. 2 Discontinu ed(Therapy completed) V-R STOOL SOFTENER 100 MG capsule Take 100 mg by mouth in the morning and at bedtime. 2 Discontinu ed(Therapy completed) naproxen (Naprosyn) 500 MG tablet Take 500 mg by mouth with breakfast and with evening meal. 2 Discontinu ed(Therapy completed) clobetasol (Temovate) 0.05 % ointment APPLY TO LEGS TWICE DAILY NEEDED FOR FLARE. 3 Discontinu ed(Therapy completed) hydrOXYzine HCl (Atarax) 10 MG tablet Take 10 mg by mouth if needed in the morning, at noon, and at bedtime. 3 Discontinu ed(Therapy completed) triamcinolone (Kenalog) 0.1 % ointment APPLY TO ARMS TWICE DAILY NEEDED FOR FLARE. 3 Discontinu ed(Therapy completed) tacrolimus (Protopic) 0.1 % ointment APPLY TOPICALLY TO AFFECTED AREA(S) ON LEGS TWICE DAILY, ALTERNATE WITH steroid 3 Discontinu ed(Therapy completed) albuterol 108 (90 Base) MCG/ACT inhalerIndicat ions:Post-COVI D chronic dyspnea Inhale 2 puffs every 6 (six) hours if needed for wheezing. 18 g 11 3 025 Discontinu ed(Therapy completed) amoxicillin (Amoxil) 500 MG capsule Take 4 capsules of amoxicillin 500 mg 1 hour prior dental procedure 12 capsule 5 025 Discontinu ed(Therapy completed) nitrofurantoin , macrocrystal-m onohydrate, (Macrobid) 100 MG capsuleIndicat ions:Acute cystitis without hematuria Take 1 capsule (100 mg) by mouth 2 times daily for 5 days. 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 Assessment & [...] Encounters Date Type Department Care Team Description 05/24/2025 11:15 AM EDT Office Visit [facility] ADULT DENTAL [address] [place] [address] Weaver-Vann , Netta, DDS Edentulism (Primary Dx) 05/18/2025 Results Follow-Up [facility] MEDICINE [address] [place], [place] [phone] Darlene Mallory MD TSH W/Reflex to FT4, Vitamin B12/Folate, Serum Panel, RPR (Monitor) with Reflex to Titer, Additional followed-up results: 2 05/18/[address] [address] Marian Peralta RN Results 05/14/2025 2:15 PM EDT Office Visit [address] [address] Nae Whipple MD Primary hypertension (Primary Dx); Dietary counseling; Exercise counseling; Overweight; Paresthesia; Pain in both hands; Overactive bladder; Primary insomnia; Acute cystitis without hematuria; Depressive disorder 05/14/2025 Orders Only [address] [address] Nae Whipple MD 05/14/2025 Travel 05/12/2025 9:15 AM EDT Office Visit [facility] ADULT DENTAL [address] [place] [phone] Weaver-Vann , Netta, DDS Edentulism (Primary Dx); Teeth missing 05/12/[address] [address] Nae Whipple MD chart prep 05/04/2025 9:00 AM EDT Office Visit [facility] ADULT DENTAL [address] [place] [phone] Weaver-Vann , Netta, DDS Edentulism (Primary Dx) 04/26/2025 9:30 AM EDT Office Visit [facility] ADULT DENTAL [address] [place] [phone] Weaver-Vann , Netta, DDS Teeth missing (Primary Dx) 04/07/2025 10:00 AM EDT Office Visit [facility] OPTOMETRY [address] [place] [phone] Bang, Shanda, OD Presbyopia (Primary Dx) 04/05/[address] [address] Nae Whipple MD 03/17/2025 Orders Only [address] [place] [address] Nae Whipple MD from Last 3 Months Immunizations Immunization Administration [...] Answer Date Recorded Patient Health Questionnaire-9 Score 13 05/14/2025 Patient Health Questionnaire-9 Score 13 05/14/2025 Last PHQ-9: Questionnaire Data Not on file 0 05/14/2025 Housing Stability Answer Date Recorded What is [...] Answer Date Recorded Patient Health Questionnaire-2 Score 3 05/14/2025 Internet Access Answer Date Recorded Internet Access [...] Sign Reading Time Taken Comments Blood Pressure 120/78 05/24/2025 10:59 AM EDT Pulse 67 05/24/2025 10:59 AM EDT Temperature 37.3 C (99.1 F) 05/14/2025 2:18 PM EDT Respiratory Rate 20 05/14/2025 2:18 PM EDT Oxygen Saturation 98% 07/06/2024 10:16 AM EDT Inhaled Oxygen Concentration - - Weight 68.9 kg (152 lb) 05/14/2025 2:18 PM EDT Height 160 cm (5' 3 ) 05/14/2025 2:18 PM EDT Body Mass Index 26.93 05/14/2025 2:18 PM EDT Plan of Treatment Health Maintenance Due Date [...] - Td or Tdap) 02/14/2022 02/15/2012, 02/15/2012 Colonoscopy 07/01/2024 07/01/2014 Colorectal Cancer Screening 07/01/2024 Dental Oral Exam 04/15/2025 10/15/2024, , 08/20/2017, Additional history exists COVID-19 Vaccine ( season) 2025 02/02/2021, 01/05/2021 Influenza Vaccine (#1) 2025 , 08/31/2022, 07/08/2014, Additional history exists Alcohol/Substance Use Screening 07/06/2025 07/06/2024 SDOH Screening 07/06/2025 07/06/2024 Dental X-Ray: Bitewings 10/16/2025 10/15/19 25, 02/13/2019, 08/20/2017, Additional history exists Depression Monitoring 11/13/2025 05/14/2025, 025 Mammogram 03/17/2026 03/17/2025, 02/15, 03/08/2023, Additional history exists Tobacco Screening 05/24/2026 05/24/2025 Lipid Panel 05/25/2027 05/25/2022 Dental X-Ray: Full [...] PRESENTATION, DETAILED AND EXTENSIVE TREATMENT PLANNING Routine 05/24/2025 11:15 AM EDT Edentulism 18,19,30,31 MANDIBULAR PARTIAL DENTURE - RESIN BASE (INCLUDING, RETENTIVE/CLASPING MATERIALS, RESTS, AND TEETH) Routine 05/24/2025 11:15 AM EDT Edentulism Max COMPLETE DENTURE - MAXILLARY Routine 05/24/2025 11:15 AM EDT Edentulism URINALYSIS, COMPLETE, WITH REFLEX TO CULTURE Routine 05/14/2025 3:05 PM EDT Acute cystitis without hematuria CBC WITH AUTO DIFFERENTIAL Routine 05/14/2025 3:05 PM EDT Paresthesia RPR (MONITOR) W/REFL TITER Routine 05/14/2025 3:05 PM EDT Paresthesia VITAMIN B12/FOLATE, SERUM PANEL Routine 05/14/2025 3:05 PM EDT Paresthesia TSH W/REFLEX TO FT4 Routine 05/14/2025 3 :05 PM EDT Paresthesia XR HAND 3+ VIEWS BILATERAL Routine 05/14/2025 2:38 PM EDT Pain in both hands CULTURE, URINE, ROUTINE Routine 05/14/2025 12:00 AM EDT WAX TRY IN Routine 05/12/2025 9:15 AM EDT Edentulism Teeth missing BITE REGISTRATION Routine 05/04/2025 9:0 0 AM EDT Edentulism DENTURE IMPRESSION Routine 04/26/2025 9: 30 AM EDT Teeth missing BI MAMMOGRAM SCREENING TOMOSYNTHESIS BILATERAL Routine 03/17/2025 9:47 AM EDT PANORAMIC RADIOGRAPHIC IMAGE Routine 01/26/2025 [...] Recently Relevant to Health Maintenance Results * Vitamin B12/Folate, Serum Panel (05/14/2025 3:05 PM EDT) Vitamin B12 301 200 - 900 pg/mL [facility] Comment:NORMAL 200-900 PG/ML INDETERMINATE 160-199 PG/ML DEFICIENT < 160 PG/ML Folate 8.6 > or = 4.0 ng/mL [facility] Comment:Reference Values:> o r = 4.0 ng/mL< 4.0 ng/mL suggests folate deficiency Methotrexate, aminopterin and folinic acid(leucovorin) are chemotherapeutic agents whose molecularstructures are similar to folate; therefore, the Architectfolate assay cannot be used for patients using these drugs. Blood Venous blood specimen / Unknown 05/14/2025 3:05 PM EDT 05/14/2025 5:25 PM EDT us Nae Whipple MD LAB BLOOD ORDERABLES Final Res ult [facility] [address] [place] [phone] * (ABNORMAL) Urinalysis, Complete, with Reflex to Culture (05/14/2025 3:05 PM EDT) Color Urine Yellow [facility] Appearance Urine Hazy [facility] PH 6.0 5.0 - 9.0 [facility] Glucose Urine UA Negative Negative mg/dL [facility] Urine Blood Negative Negative [facility] Specific [place] - Urine 1.010 1.005 - 1.025 [facility] Urine Protein Negative Neg-Trace mg/dL [facility] Urine Ketones Trace Negative mg/dL [facility] Nitrite Urine Positive(A) Negative [facility] Leukocyte Esterase Urine Negative Negative [facility] RBC Urine 0-2 0 - 2 /HPF [facility] Urine WBC 6-10(A) 0 - 5 /HPF [facility] Urine Squamous Epithelial Cell 0-2 0 - 2 /HPF [facility] Urine Bacteria 4+ None Seen [facility] Hyaline Casts, Urine 0-2 0 - 2 /LPF [facility] Urine 05/14/2025 3:05 PM EDT 05/14/2025 4:10 PM EDT Narrative [facility] - 05/14/2025 4:44 PM EDT Urine, Clean Catch Nae Whipple MD LAB URINE ORDERABLES Final Res ult Performing Organization Address [facility] Co de Phone Number [facility] [address] [place] [phone] * TSH W/Reflex to FT4 (05/14/2025 3:05 PM EDT) TSH reflex Free T4 1.49 0.32 - 4.0 uIU/mL [facility] Blood Venous blood specimen / Unknown 05/14/2025 3:05 PM EDT 05/14/2025 5:25 PM EDT Nae Whipple MD LAB BLOOD ORDERABLES Final Res ult Performing Organization Address [facility] Co de Phone Number [facility] [address] [place] [phone] * CBC auto differential (05/14/2025 3:05 PM EDT) White Blood Count 6.1 4.8 - 10.8 X10*3/uL [facility] Red Blood Count 4.93 4.20 - 5.50 X10*6/uL [facility] Hemoglobin 14.5 12.0 - 16.0 g/dl [facility] Hematocrit 42.8 37.0 - 47.0 % [facility] Mean Corpuscular Volume 86.8 80.0 - 98.0 fL [facility] Mean Corpuscular Hemoglobin 29.4 27.0 - 33.0 pg [facility] Mean Corpuscular HGB Conc 33.9 31.0 - 35.0 g/dl [facility] Red Cell Distribution Width 12.4 11.0 - 16.0 % [facility] Platelet Count 285 160 - 400 X10*3/uL [facility] Mean Platelet Volume 10.2 9.4 - 12.3 [facility] Neutrophils Percent Auto 60.1 45 - 73 % [facility] Imm Gran Pct Auto 0.3 0.0 - 0.4 % [facility] Lymphocytes Percent Auto 28.2 20 - 40 % [facility] Monocytes Percent Auto 7.5 2 - 11 % [facility] Eosinophils Percent Auto 3.1 0 - 4 % [facility] Basophils Percent Auto 0.8 0 - 2 % [facility] NRBC Pct Auto 0.0 0.0 - 0.2 /100WBC [facility] Neutrophils Absolute Auto 3.7 2.0 - 8.3 x10*3/uL [facility] Imm Gran Abs Auto 0.02 0.00 - 0.03 X10*3/uL [facility] Lymphocytes Absolute Auto 1.7 1.2 - 4.9 X10*3/uL [facility] Monocytes Absolute Auto 0.5 0.1 - 1.2 X10*3/uL [facility] Eosinophils Absolute Auto 0.2 0.0 - 0.4 X10*3/uL [facility] Basophils Absolute Auto 0.1 0.0 - 0.2 X10*3/uL [facility] NRBC Abs Auto 0.000 0.0 - 0.012 X10*3/uL [facility] Blood Venous blood specimen / Unknown 05/14/2025 3:05 PM EDT 05/14/2025 5:25 PM EDT us Nae Whipple MD LAB BLOOD ORDERABLES Final Res ult Performing Organization Address [facility] Co de Phone Number [facility] [address] [place] [phone] * RPR (Monitor) with Reflex to??Titer (05/14/2025 3:05 PM EDT) RPR (Monitor) w/Refl Titer NON-REACTI VE NON-REACT LUIS FELIPE [facility] Comment:THIS TEST WAS PERFOR MED AT:[employer] [place] [phone] OLSON MD Rapid Plasma Reagin Ab Titer TNP [facility] Blood Venous blood specimen / Unknown 05/14/2025 3:05 PM EDT 05/14/2025 5:25 PM EDT Nae Whipple MD LAB BLOOD ORDERABLES Final Res ult Performing Organization Address [facility] Co de Phone Number [facility] [address] [place] [phone] * XR Hand 3+Views Bilateral (05/14/2025 2:38 PM EDT) Anatomical Region Laterality Modality Upper Extremities, Hand Bilateral Radiogra phic Imaging 05/14/2025 2:38 PM EDT Narrative 05/14/2025 4:07 PM EDT [address] [address] XRay Report Signed Patient: Sil Salcedo MR#: [id number] : 1960 Acct:[id number] Age/Sex: 64 / F ADM Date: 05/14/25 Loc: .[facility] Attending Dr: Nae Whipple MD Ordering Physician: Nae Whipple Date of Service: 05/14/25 Procedure(s): XR Hand Bilat min 3v Accession Number(s): [id number] cc: Nae Whipple EXAMINATION: XR HAND/WRIST, RIGHT XR HAND/WRIST, LEFT CLINICAL INFORMATION: pain and triggered fingers COMPARISON: None TECHNIQUE: PA, and [place], and lateral views each hand and wrist. FINDINGS: RIGHT HAND/WRIST: Normal bone mineralization. No fracture, dislocation, or suspicious bone lesion. There is normal alignment. There is no periarticular osteopenia. There are no periarticular erosions and there is no arthropathy evident. There is no soft tissue abnormality. LEFT HAND/WRIST: Normal bone mineralization. No fracture, dislocation, or suspicious bone lesion. There is normal alignment. There is no periarticular osteopenia. There are no periarticular erosions and there is no arthropathy evident. There is no soft tissue abnormality. XR/XR Hand Bilat min 3v IMPRESSION: Normal radiographs of the hands and wrists. Electronically signed by: Damien Whitley MD 05/14/2025 04:05 PM EDT Dictated By: Damien Whitley MD Signed By: <Electronically signed by Damien Whitley MD in OV> 05/14/25 1605 DD/ 1438 TD/TT: 05/14/25 1440 Sql Report Analyst: Procedure Note Donotuseinterpreter, Image - 05/14/[address] [address] XRay Report Signed Patient: Sil Salcedo GMR#: [id number] : 2Acct:[id number] Age/Sex: 64 / FADM Date: 05/14/25 Loc: .[facility] Attending Dr: Nae Whipple MD Ordering Physician: Nae Whipple Date of Service: 05/14/25 Procedure(s): XR Hand Bilat min 3v Accession Number(s): [id number] cc: Nae Whipple EXAMINATION: XR HAND/WRIST, RIGHT XR HAND/WRIST, LEFT CLINICAL INFORMATION: pain and triggered fingers COMPARISON: None TECHNIQUE: PA, and [place], and lateral views each hand and wrist. FINDINGS: RIGHT HAND/WRIST: Normal bone mineralization. No fracture, dislocation, or suspicious bone lesion. There is normal alignment. There is no periarticular osteopenia. There are no periarticular erosions and there is no arthropathy evident. There is no soft tissue abnormality. LEFT HAND/WRIST: Normal bone mineralization. No fracture, dislocation, or suspicious bone lesion. There is normal alignment. There is no periarticular osteopenia. There are no periarticular erosions and there is no arthropathy evident. There is no soft tissue abnormality. XR/XR Hand Bilat min 3v IMPRESSION: Normal radiographs of the hands and wrists. Electronically signed by: Damien Whitley MD 05/14/2025 04:05 PM EDT RP Dictated By: Damien Whitley MD Signed By: <Electronically signed by Damien Whitley MD in OV> 05/14/25 1605 DD/ 1438 TD/TT: 05/14/25 1440 Sql Report Analyst: Nae Whipple MD IMG XR PROCEDURES Final Result * Culture, Urine, Routine (05/14/2025 12:00 AM EDT) Urine Urine specimen obtained by clean catch procedure / Unknown 05/14/2025 05/14/2025 Comment:UACC Narrative [facility] - 05/16/2025 7:45 AM EDT Klebsiella pneumoniae Quant > 100,000 cfu/mL Klebsiella pneumoniae: Ampicillin 16(R) Klebsiella pneumoniae: Cefazolin 2(S) Klebsiella pneumoniae: Cefepime <=0.12(S) Klebsiella pneumoniae: Ceftriaxone <=0.25(S) Klebsiella pneumoniae: Ciprofloxacin <=0.06(S) Klebsiella pneumoniae: Gentamicin <=1(S) Klebsiella pneumoniae: Nitrofurantoin 32(S) Klebsiella pneumoniae: Trimethoprim/Sulfamethoxazole <=20(S) Specimen Source: Urine clean catch Nae Whipple MD LAB MICROBIOLOGY - GENERAL ORD ERABLES Final Result [facility] [address] [place] [phone] * BI Mammogram Screening Tomosynthesis Bilateral (03/17/2025 9:47 AM EDT) Anatomical Region Laterality Modality Breast Bilateral Mammography 03/17/2025 9:47 AM EDT Narrative 03/28/2025 8:19 PM EDT [address] [place] [address] Mammography Report Signed Patient: Sil Salcedo MR#: [id number] : 1960 Acct:[id number] Age/Sex: 64 / F ADM Date: 03/17/25 Loc: [facility].MAMMO Attending Dr: Nae Whipple MD Ordering Physician: Nae Whipple Results: 2Benign F indings Date of Service: 03/17/25 Follow Up: 1 Year From Orig ina Mammogram Procedure(s): MM tomosynthesis screening BI Accession Number(s): [id number] cc: Nae Whipple EXAMINATION: MM SCREENING DIGITAL [...] OV> 03/28/252015 DD/ 0947 TD/TT: 03/17/25 1001 Sql Report Analyst: Procedure Note Donotuseinterpreter, Image - 03/28/[address] [place] [address] Mammography Report Signed Patient: Sil Salcedo GMR#: [id number] : 1960cct:[id number] Age/Sex: 64 / FADM Date: 03/17/25 Loc: HO.MAMMO Attending Dr: Nae Whipple MD Ordering Physician: Lor Whippleults: 2Benign F indings Date of Service: 03/17/25Follow Up: 1 Year From Orig ina Mammogram Procedure(s): MM tomosynthesis screening BI Accession Number(s): [id number] cc: Nae Whipple EXAMINATION: MM SCREENING DIGITAL [...] Sabi Meyers DO 03/28/2025 08:16 PM EDT Dictated By: Sabi Meyers DO Signed By: <Electronically signed by Sabi Meyers DO in OV> 03/28/252015 DD/ 0947 TD/TT: 03/17/25 1001 Sql Report Analyst: Nae Whipple MD IMG BI PROCEDURES Edited [...] LDL-C. Jeramy LE et al. JENN. 2013;310(19): 3019-0191 (http://education.[employer].DATY/faq/AHX154) Non-HDL Cholesterol 167(H) <130 mg/dL (calc) [facility] Comment: For patients with diabetes plus 1 major ASCVD risk factor, treating to a non-HDL-C goal of <100 mg/dL (LDL-C of <70 mg/dL) is considered a therapeutic option. Triglycerides 138 <150 mg/dL [facility] 05/25/2022 9:53 AM EDT Nae Whipple MD LAB BLOOD ORDERABLES Final Res ult [facility] [address] * Colonoscopy (07/01/2014) Colonoscopy Normal Normal Narrative Sarahi Hernandez - 07/01/2014 Recommended 10 year follow up ([facility]) Historical Provider HEALTH MAINTENANCE Final Result from Last 3 Months or Most Recently Relevant to Health Maintenance Insurance [facility] C3 DENTAL-[facility] MEDICAID STAND ADULT Care Teams Outreach Liaison Relationship Specialty Start Date End Date Nae Whipple MD [address] [place] [phone] PCP - General Family Medicine 07/29/20 Yasmeen Ovalle Stock Patch SawyerCafeteria Worker 10/01/24
--- OUTSIDE RECORDS SUMMARY | 2025-06-10 11:36 | XMS_ITS | Encounter Summary ---
Author Organization [employer] Address [address] [facility] 7t [place] [address] Care Team Providers Care Hazard Waste Handler Name Role Phone Nae Whipple MD Primary Care Provider Reason for Visit * Reason Onset Date Comments Status Request 05/12/2024 Encounter Details Date Type Department Care Team ([facility] st Contact Info) Description 05/12/[address] 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 Please contact pt at [phone]. (Italian Speaker) documented in this encounter Plan of Treatment Not on file documented as of this encounter Visit Diagnoses Not on filedocumented in this encounter Care Teams Hazard Waste Handler Relationship Specialty Start Date End Date Nae Whipple MD [address] [place] [address] PCP - General Family Medicine 07/29/20 Yasmeen Ovalle Library Cataloging TechnicianRadio Time Sales Supervisor 10/01/24 documented as of this encounter
--- OUTSIDE RECORDS SUMMARY | 2025-06-10 11:36 | XMS_ITS | Encounter Summary ---
Author Organization [employer] [facility] Address [address] [facility] 7t [place] [address] Care Team Providers Care Bi Developer Name Role Phone Nae Whipple MD Primary Care Provider [phone] Encounter Details Date Type Department Care Team (Latest Contact Info) Description 02/13/2019 Abstract [facility] CONVERSIONS Dental, Provider, DDS Social History [...] on filedocumented in this encounter Care Teams Bi Developer Relationship Specialty Start Date End Date Nae Whipple MD [address] [place] [phone] PCP - General Family Medicine 07/29/20 Yasmeen Ovalle Cash Surrender CalculatorHot Knife Cutter 10/01/24 documented as of this encounter
--- OUTSIDE RECORDS SUMMARY | 2025-06-10 11:36 | XMS_ITS | Clinical Summary ---
Author Organization [facility] ity Address [address] [place] [address] Care Team Providers Care Global Regulatory Lead Name Role Phone Unavailable Primary Care Provider [...] 12/05/2011 Zoster Vaccines (1 of 2) 12/05/2011 Depression Screening 09/16/2024 COVID-19 Vaccine (1 - 2023-2 5 season) 2025 Influenza Vaccine (#1) 2025 RSV Immunization Adult [...]
--- OUTSIDE RECORDS SUMMARY | 2025-06-10 11:36 | XMS_ITS | Encounter Summary ---
Author Organization [employer] Address [address] [facility] [address]t [place] [address] Care Team Providers Care Adult Probation Officer Name Role Phone Nae Whipple MD Primary Care Provider [phone] Reason for Visit * Reason Onset Date Comments Housing 11/26/2023 Encounter Details Date Type Department Care Team ([facility] st Contact Info) Description 11/26/2023 Telephone [facility] MEDICINE [address] [place], [place] [phone] Nae Whipple MD [address] [place], [place] [phone] Housing Social History Tobacco Use Types Packs/Day [...] handed to provider. Please contact pt @ [phone] Estonian Speaker documented in this encounter Plan of Treatment Not on file documented as of this encounter Visit Diagnoses Not on filedocumented in this encounter Care Teams Adult Probation Officer Relationship Specialty Start Date End Date Nae Whipple MD [address] [place] [address] PCP - General Family Medicine 07/29/20 Yasmeen Ovalle Clinical EvaluatorAndroid Architect 10/01/24 documented as of this encounter
--- OUTSIDE RECORDS SUMMARY | 2025-06-10 11:36 | XMS_ITS | Encounter Summary ---
Author Organization [employer] Address [address] [facility] 7[address] [place] [address] Care Team Providers Care Administrative Fellow Name Role Phone Nae Whipple MD Primary Care Provider [phone] Encounter Details Date Type Department Care Team (Late st Contact Info) Description 05/18/2025 Results Follow-Up [facility] MEDICINE [address] [place], [place] [phone] Darlene Mallory MD [address] [place] [address] TSH W/Reflex to FT4, Vitamin B12/Folate, Serum Panel, RPR (Monitor) with Reflex to Titer, Additional followed-up results: 2 Social History Tobacco Use Types Packs/Day Years [...] Assessment Noted Time PHQ-9 Depression Total Score: 13 025 3:32 PM EDT documented as of this encounter Care Teams Administrative Fellow Relationship Specialty Start Date End Date Nae Whipple MD [address] [place] [address] PCP - General Family Medicine 07/29/20 Yasmeen Ovalle Shearing Machine TenderFryer Line Helper 10/01/24 documented as of this encounter
== END 2025-06-10 10:03 | disposition home or self-care (01) ==
LOC: HO.HGI 09:46
PROVIDERS: PCP General Practice; Visit Provider Nurse Practitioner
DX: K21.9 Gastro-esophageal reflux disease without esophagitis (principal); A04.8 Other specified bacterial intestinal infections
CPT/HCPCS: 99213